=== PATIENT | male | born 1965 | race Caucasian/White ===

== ENCOUNTER 2018-03-06 13:09 | Emergency (ER) | payer SELFPAY ==
[2018-03-06] MEDS ORDERED: NS 0.9% 1000 ML* 1,000 ML IV ONE (14:44)
[2018-03-06] MEDS ORDERED: Thiamine IV* 100 MG, Folic Acid IV* 1 MG, Multiple Vitamin IV ADULT* 10 ML in NS 0.9% 1... IV ONE (14:48)
[2018-03-06 15:21] LABS: Hematocrit 36 % (42-52); Hemoglobin 12.4 g/dl (14.0-18.0); Mean Corpuscular HGB Conc 35 g/dl (31-36); Mean Corpuscular Hemoglobin 34 pg (27-31); Mean Corpuscular Volume 96 fL (80-94); Mean Platelet Volume 6.7 fL (7.4-10.4); Platelet Count 175 10^3/ul (150-450); Red Cell Distribution Width 14 % (10.5-15); White Blood Count 8.6 10^3/ul (3.5-10.8)
[2018-03-06 15:28] LABS: INR 0.78 (0.77-1.02)
[2018-03-06 15:35] LABS: ALT 35 U/L (7-52); AST 50 U/L (13-39); Albumin 3.4 g/dL (3.2-5.2); Albumin/Globulin Ratio 1.5 (1-3); Alkaline Phosphatase 139 U/L (34-104); Anion Gap 7 mmol/L (2-11); BUN/Creatinine Ratio 9.7 (8-20); Blood Urea Nitrogen 9 mg/dL (6-24); C Reactive Protein < 1.00 mg/L (<8.01); CO2 Carbon Dioxide 25 mmol/L (22-32); Calcium 8.1 mg/dL (8.6-10.3); Chloride 98 mmol/L (101-111); EGFR Non-African American 84.4 (>60); Globulin 2.3 g/dL (2-4); Glucose 99 mg/dL (70-100); Potassium 4.5 mmol/L (3.5-5.0); Sodium 130 mmol/L (135-145); Total Protein 5.7 g/dL (6.4-8.9)
[2018-03-06 16:00] LABS: Alcohol 174 mg/dL (<10)
[2018-03-06 16:15] LABS: Lymphocytes % 40 %; Monocytes % 6 %; Neutrophil % 48 %; Variant Lymph % 6 % (0-6)
[2018-03-06 16:17] LABS: ABS Basophils 0.1 10^3/ul (0-0.2); ABS Eosinophils 0.1 10^3/ul (0-0.6); ABS Lymphocytes 3.6 10^3/ul (1.0-4.8); ABS Monocytes 0.7 10^3/ul (0-0.8); ABS Neutrophils 4.2 10^3/ul (1.5-7.7); ABS Nucleated RBC 0 10^3/ul; Nucleated Red Blood Cells % 0.1
[2018-03-06 18:16] LABS: Barbiturates Urine Screen None Detected (None Detect); Benzodiazepine Urine Screen None Detected (None Detect); Urine Cannabinoids Screen None Detected (None Detect)
[2018-03-06 18:19] LABS: Urine Appearance Clear; Urine Bilirubin Negative (Negative); Urine Blood Negative (Negative); Urine Color Straw; Urine Glucose Negative (Negative); Urine Ketones Negative (Negative); Urine Nitrite Negative (Negative); Urine Protein Negative (Negative); Urine Specific Gravity 1.005 (1.010-1.030); Urine Urobilinogen Negative (Negative)
[2018-03-06] MEDS ORDERED: amLODIPine TAB* 5 MG PO ONE (18:23)
--- NOTE | 2018-03-06 18:27 | ED ---
Substance Abuse/Use - HPI Summary HPI Summary: Patient with history of chronic EtOH per family complains of increasing falls, increasing confusion. Per patient, who is alert and oriented to person and place, he complains of headache status post fall yesterday. Patient admits to 6 -8 beers a day, last EtOH this morning. Patient lives alone. denies medical history. Parents state patient had hepatorenal syndrome in [place] in 2013. Patient is positive smoker. Denies recreational drug use - History Of Current Complaint Chief Complaint: EDHeadInjury Stated Complaint: FALL W POSS HEAD INJURY Time Seen by Provider: 03/06/18 14:40 Hx Obtained From: Patient Onset/Duration of Drug/ETOH Abuse: Hours Timing Of Abuse: Daily Aggravating Factor(s): Nothing Alleviating Factor(s): Nothing Associated Signs And Symptoms: Negative - Allergies/Home Medications Allergies/Adverse Reactions: Allergies Allergy/AdvReac Type Severity Reaction Status Date / Time No Known Allergies Allergy Verified 03/06/18 15:52 Home Medications: Home Medications NK [No Home Medications Reported] 03/06/18 [History Confirmed 03/06/18] PMH/Surg Hx/FS Hx/Imm Hx Endocrine/Hematology History: Denies: Hx Anticoagulant Therapy History: Denies: Hx Dialysis Sensory History: Denies: Hx Eye Prosthesis EENT History: Denies: Hx Deafness Neurological History: Denies: Hx Developmental Delay Psychiatric History: Denies: Hx Autism Infectious Disease History: No Infectious Disease History: Denies: Traveled Outside the [place] in Last 30 Days - Family History Known Family History: Positive: Unknown - Social History Alcohol Use: Daily Alcohol Amount: 6-8 pack of beer a day Substance Use Type: Reports: None Smoking Status (MU): Heavy Every Day Tobacco Smoker Review of Systems Constitutional: Negative Eyes: Negative ENT: Negative Cardiovascular: Negative Respiratory: Negative Gastrointestinal: Negative Genitourinary: Negative Musculoskeletal: Negative Skin: Negative Positive: Headache Psychological: Normal All Other Systems Reviewed And Are Negative: Yes Physical Exam - Summary Physical Exam Summary: Patient alert and oriented 4. Neuro exam normal. No evidence of trauma, ecchymosis, erythema, swelling or deformity noted to face, head, neck, back, chest wall, abdomen, bilateral lower extremities. No oral trauma noted. Appears to be old subcutaneous bruising on bilateral forearms.. Patient moves all 4 extremities without any indication of pain. No pain with palpation of abdomen, chest wall, back. No diaphoresis, N/V, tremors noted. Patient calm and cooperative. Triage Information Reviewed: Yes Vital Signs On Initial Exam: Initial Vitals Temp Pulse Resp BP Pulse Ox 98.3 F 62 20 113/0 99 03/06/18 13:40 03/06/18 13:40 03/06/18 13:40 03/06/18 13:40 03/06/18 13:40 Vital Signs Reviewed: Yes Appearance: Positive: Well-Appearing Skin: Positive: Warm Head/Face: Positive: Normal Head/Face Inspection Eyes: Positive: Normal ENT: Positive: Normal ENT inspection Dental: Negative: Dental Fracture @, Bleeding Neck: Positive: Supple Respiratory/Lung Sounds: Positive: Clear to Auscultation Cardiovascular: Positive: Normal Abdomen Description: Positive: Nontender Musculoskeletal: Positive: Normal Neurological: Positive: Normal Psychiatric: Positive: Normal AVPU Assessment: Alert - Marked Tree Coma Scale Best Eye Response: 4 - Spontaneous Best Motor Response: 6 - Obeys Commands Best Verbal Response: 5 - Oriented Coma Scale Total: 15 Diagnostics - Vital Signs Vital Signs Temp Pulse Resp BP Pulse Ox 03/06/18 18:00 68 17 97 03/06/18 17:54 77 16 228/100 97 03/06/18 17:44 71 18 213/104 97 03/06/18 17:23 80 22 218/98 98 03/06/18 17:00 69 17 97 03/06/18 16:54 70 17 202/96 97 03/06/18 16:23 68 16 227/103 99 03/06/18 16:00 71 21 97 03/06/18 15:53 89 21 196/112 97 03/06/18 15:42 98 227/116 03/06/18 15:38 101 17 227/116 98 03/06/18 15:37 77 20 218/87 98 03/06/18 15:34 77 18 214/105 97 03/06/18 15:23 75 25 218/105 98 03/06/18 15:07 80 16 100 03/06/18 14:23 73 19 192/99 96 03/06/18 14:00 77 17 97 03/06/18 13:53 80 19 224/114 99 03/06/18 13:40 98.3 F 62 20 113/0 99 - Laboratory Lab Results: Lab Results 03/06/18 03/06/18 03/06/18 Range/Units 15:05 15:05 15:05 WBC 8.6 (3.5-10.8) 10^3/ul RBC 3.70 L (4.00-5.40) 10^6/ul Hgb 12.4 L (14.0-18.0) g/dl Hct 36 L (42-52) % MCV 96 H (80-94) fL MCH 34 H (27-31) pg MCHC 35 (31-36) g/dl RDW 14 (10.5-15) % Plt Count 175 (150-450) 10^3/ul MPV 6.7 L (7.4-10.4) fL Neut % (Auto) Not Reportable Lymph % (Auto) Not Reportable Mckinley % (Auto) Not Reportable Eos % (Auto) Not Reportable Baso % (Auto) Not Reportable Absolute Neuts (auto) 4.2 (1.5-7.7) 10^3/ul Absolute Lymphs (auto) 3.6 (1.0-4.8) 10^3/ul Absolute Monos (auto) 0.7 (0-0.8) 10^3/ul Absolute Eos (auto) 0.1 (0-0.6) 10^3/ul Absolute Basos (auto) 0.1 (0-0.2) 10^3/ul Absolute Nucleated RBC 0 10^3/ul Neutrophils % 48 % Lymphocytes % 40 % Reactive Lymphs % 6 (0-6) % Monocytes % 6 % Nucleated RBC % 0.1 Normal RBC Morphology Normal (Normal) INR (Anticoag Therapy) (0.77-1.02) Sodium 130 L (135-145) mmol/L Potassium 4.5 (3.5-5.0) mmol/L Chloride 98 L (101-111) mmol/L Carbon Dioxide 25 (22-32) mmol/L Anion Gap 7 (2-11) mmol/L BUN 9 (6-24) mg/dL Creatinine 0.93 (0.67-1.17) mg/dL Est GFR ( Amer) 102.1 (>60) Est GFR (Non-Af Amer) 84.4 (>60) BUN/Creatinine Ratio 9.7 (8-20) Glucose 99 (70-100) mg/dL Lactic Acid 1.6 (0.5-2.0) mmol/L Calcium 8.1 L (8.6-10.3) mg/dL Total Bilirubin 0.20 (0.2-1.0) mg/dL AST 50 H (13-39) U/L ALT 35 (7-52) U/L Alkaline Phosphatase 139 H (34-104) U/L Ammonia (16-53) mcmol/L C-Reactive Protein < 1.00 (<8.01) mg/L Total Protein 5.7 L (6.4-8.9) g/dL Albumin 3.4 (3.2-5.2) g/dL Globulin 2.3 (2-4) g/dL Albumin/Globulin Ratio 1.5 (1-3) Urine Color Urine Appearance Urine pH (5-9) Ur Specific [place] (1.010-1.030) Urine Protein (Negative) Urine Ketones (Negative) Urine Blood (Negative) Urine Nitrate (Negative) Urine Bilirubin (Negative) Urine Urobilinogen (Negative) Ur Leukocyte Esterase (Negative) Urine Glucose (Negative) Urine Opiates Screen (None Detect) Ur Barbiturates Screen (None Detect) Ur Phencyclidine Scrn (None Detect) Ur Amphetamines Screen (None Detect) U Benzodiazepines Scrn (None Detect) Urine Cocaine Screen (None Detect) U Cannabinoids Screen (None Detect) Serum Alcohol 174 H (<10) mg/dL 03/06/18 03/06/18 03/06/18 Range/Units 15:05 15:05 17:45 WBC (3.5-10.8) 10^3/ul RBC (4.00-5.40) 10^6/ul Hgb (14.0-18.0) g/dl Hct (42-52) % MCV (80-94) fL MCH (27-31) pg MCHC (31-36) g/dl RDW (10.5-15) % Plt Count (150-450) 10^3/ul MPV (7.4-10.4) fL Neut % (Auto) Lymph % (Auto) Mckinley % (Auto) Eos % (Auto) Baso % (Auto) Absolute Neuts (auto) (1.5-7.7) 10^3/ul Absolute Lymphs (auto) (1.0-4.8) 10^3/ul Absolute Monos (auto) (0-0.8) 10^3/ul Absolute Eos (auto) (0-0.6) 10^3/ul Absolute Basos (auto) (0-0.2) 10^3/ul Absolute Nucleated RBC 10^3/ul Neutrophils % % Lymphocytes % % Reactive Lymphs % (0-6) % Monocytes % % Nucleated RBC % Normal RBC Morphology (Normal) INR (Anticoag Therapy) 0.78 (0.77-1.02) Sodium (135-145) mmol/L Potassium (3.5-5.0) mmol/L Chloride (101-111) mmol/L Carbon Dioxide (22-32) mmol/L Anion Gap (2-11) mmol/L BUN (6-24) mg/dL Creatinine (0.67-1.17) mg/dL Est GFR ( Amer) (>60) Est GFR (Non-Af Amer) (>60) BUN/Creatinine Ratio (8-20) Glucose (70-100) mg/dL Lactic Acid (0.5-2.0) mmol/L Calcium (8.6-10.3) mg/dL Total Bilirubin (0.2-1.0) mg/dL AST (13-39) U/L ALT (7-52) U/L Alkaline Phosphatase (34-104) U/L Ammonia 40 (16-53) mcmol/L C-Reactive Protein (<8.01) mg/L Total Protein (6.4-8.9) g/dL Albumin (3.2-5.2) g/dL Globulin (2-4) g/dL Albumin/Globulin Ratio (1-3) Urine Color Straw Urine Appearance Clear Urine pH 6.0 (5-9) Ur Specific [place] 1.005 L (1.010-1.030) Urine Protein Negative (Negative) Urine Ketones Negative (Negative) Urine Blood Negative (Negative) Urine Nitrate Negative (Negative) Urine Bilirubin Negative (Negative) Urine Urobilinogen Negative (Negative) Ur Leukocyte Esterase Negative (Negative) Urine Glucose Negative (Negative) Urine Opiates Screen (None Detect) Ur Barbiturates Screen (None Detect) Ur Phencyclidine Scrn (None Detect) Ur Amphetamines Screen (None Detect) U Benzodiazepines Scrn (None Detect) Urine Cocaine Screen (None Detect) U Cannabinoids Screen (None Detect) Serum Alcohol (<10) mg/dL 03/06/18 Range/Units 17:45 WBC (3.5-10.8) 10^3/ul RBC (4.00-5.40) 10^6/ul Hgb (14.0-18.0) g/dl Hct (42-52) % MCV (80-94) fL MCH (27-31) pg MCHC (31-36) g/dl RDW (10.5-15) % Plt Count (150-450) 10^3/ul MPV (7.4-10.4) fL Neut % (Auto) Lymph % (Auto) Mckinley % (Auto) Eos % (Auto) Baso % (Auto) Absolute Neuts (auto) (1.5-7.7) 10^3/ul Absolute Lymphs (auto) (1.0-4.8) 10^3/ul Absolute Monos (auto) (0-0.8) 10^3/ul Absolute Eos (auto) (0-0.6) 10^3/ul Absolute Basos (auto) (0-0.2) 10^3/ul Absolute Nucleated RBC 10^3/ul Neutrophils % % Lymphocytes % % Reactive Lymphs % (0-6) % Monocytes % % Nucleated RBC % Normal RBC Morphology (Normal) INR (Anticoag Therapy) (0.77-1.02) Sodium (135-145) mmol/L Potassium (3.5-5.0) mmol/L Chloride (101-111) mmol/L Carbon Dioxide (22-32) mmol/L Anion Gap (2-11) mmol/L BUN (6-24) mg/dL Creatinine (0.67-1.17) mg/dL Est GFR ( Amer) (>60) Est GFR (Non-Af Amer) (>60) BUN/Creatinine Ratio (8-20) Glucose (70-100) mg/dL Lactic Acid (0.5-2.0) mmol/L Calcium (8.6-10.3) mg/dL Total Bilirubin (0.2-1.0) mg/dL AST (13-39) U/L ALT (7-52) U/L Alkaline Phosphatase (34-104) U/L Ammonia (16-53) mcmol/L C-Reactive Protein (<8.01) mg/L Total Protein (6.4-8.9) g/dL Albumin (3.2-5.2) g/dL Globulin (2-4) g/dL Albumin/Globulin Ratio (1-3) Urine Color Urine Appearance Urine pH (5-9) Ur Specific [place] (1.010-1.030) Urine Protein (Negative) Urine Ketones (Negative) Urine Blood (Negative) Urine Nitrate (Negative) Urine Bilirubin (Negative) Urine Urobilinogen (Negative) Ur Leukocyte Esterase (Negative) Urine Glucose (Negative) Urine Opiates Screen None detected (None Detect) Ur Barbiturates Screen None detected (None Detect) Ur Phencyclidine Scrn None detected (None Detect) Ur Amphetamines Screen None detected (None Detect) U Benzodiazepines Scrn None detected (None Detect) Urine Cocaine Screen None detected (None Detect) U Cannabinoids Screen None detected (None Detect) Serum Alcohol (<10) mg/dL Result Diagrams: 03/06/18 15:05 03/06/18 15:05 Lab Statement: Any lab studies that have been ordered have been reviewed, and results considered in the medical decision making process. Course/Dx - Course Course Of Treatment: Patient with history of chronic EtOH per family complains of increasing falls, increasing confusion. Per patient, who is alert and oriented to person and place, he complains of headache status post fall yesterday. Patient admits to 6-8 beers a day, last EtOH this morning. Patient lives alone. denies medical history. Parents state patient had hepatorenal syndrome in [place] in 2013. Patient is positive smoker. Denies recreational drug use. Physical exam:Patient alert and oriented 4. Neuro exam normal. No evidence of trauma, ecchymosis, erythema, swelling or deformity noted to face, head, neck, back, chest wall, abdomen, bilateral lower extremities. No oral trauma noted. Appears to be old subcutaneous bruising on bilateral forearms.. Patient moves all 4 extremities without any indication of pain. No pain with palpation of abdomen, chest wall, back. No diaphoresis, N/V, tremors noted. Patient calm and cooperative. Blood pressure elevated 200's SBP. Vital signs otherwise unremarkable. Labs unremarkable. EtOH 174. CT brain and C-spine unremarkable. Patient given banana bag. Discussed patient with Dr. Sequeira who suggested patient be given Norvasc 5 mg for elevated blood pressure.. Pt advised to contact care connections for evaluation of hypertension, and alcohol abuse. No diaphoresis, active N/V, agitation or tremors noted on exam prior to discharge. - Diagnoses Provider Diagnoses: ETOH abuse, Fall, Elevated blood pressure reading Discharge - Sign-Out/Discharge Documenting (check all that apply): Patient Departure - Discharge Plan Condition: Stable Disposition: HOME Patient Education Materials: Abuse of Alcohol (ED), Fall Prevention (ED) Referrals: No Primary Care Phys,NOPCP [Primary Care Provider] - [facility] [Outside] Additional Instructions: Follow-up with [facility] for further management of alcohol abuse, general health and alcohol abuse. Return to the ED for any new or worsening symptoms. - Billing Disposition and Condition Condition: STABLE Disposition: Home
[2018-03-06 19:01] VITALS: BP 233/105
== END 2018-03-06 19:00 | disposition home or self-care (01) ==
LOC: ED 13:09
DX: F10.129 Alcohol abuse with intoxication, unspecified (principal); Z91.81 History of falling; R51 Headache; F17.210 Nicotine dependence, cigarettes, uncomplicated; Y90.6 Blood alcohol level of 120-199 mg/100 ml; R03.0 Elevated blood-pressure reading, without diagnosis of hypertension
CPT/HCPCS: 36415; 70450; 71045; 72125; 80053; 80307; 80320; 81003; 82140; 83605; 85025; 85060; 85610; 86140; 93005; 96365; 96366; 99283; A9270-GY; G0480; J3411

== ENCOUNTER 2018-05-14 10:36 | Emergency (ER) | payer MEDICARE ==
[2018-05-14 12:02] LABS: ABS Basophils 0.1 10^3/ul (0-0.2); ABS Eosinophils 0 10^3/ul (0-0.6); ABS Lymphocytes 2.9 10^3/ul (1.0-4.8); ABS Monocytes 0.5 10^3/ul (0-0.8); ABS Neutrophils 3.5 10^3/ul (1.5-7.7); ABS Nucleated RBC 0 10^3/ul; Eosinophil % 0.7 %; Hematocrit 36 % (42-52); Hemoglobin 12.8 g/dl (14.0-18.0); Lymphocyte % 42.1 %; Mean Corpuscular HGB Conc 35 g/dl (31-36); Mean Corpuscular Hemoglobin 34 pg (27-31); Mean Corpuscular Volume 96 fL (80-94); Mean Platelet Volume 6.9 fL (7.4-10.4); Nucleated Red Blood Cells % 0.1; Platelet Count 167 10^3/ul (150-450); Red Cell Distribution Width 13 % (10.5-15)
[2018-05-14 12:24] LABS: Albumin 3.7 g/dL (3.2-5.2); Albumin/Globulin Ratio 1.4 (1-3); BUN/Creatinine Ratio 10.5 (8-20); Calcium 8.6 mg/dL (8.6-10.3); EGFR African American 111.7 (>60); EGFR Non-African American 92.3 (>60); Globulin 2.6 g/dL (2-4); Magnesium 1.9 mg/dL (1.9-2.7); Potassium 3.7 mmol/L (3.5-5.0); Total Bilirubin 0.6 mg/dL (0.2-1.0); Total Protein 6.3 g/dL (6.4-8.9)
[2018-05-14 12:25] LABS: Troponin I 0.01 ng/mL (<0.04)
[2018-05-14 12:27] LABS: CKMB ng/mL 1.8 ng/mL (0.6-6.3)
[2018-05-14 12:36] VITALS: BP 204/96
--- NOTE | 2018-05-14 15:24 | ED ---
HPI Chest Pain - HPI Summary HPI Summary: Patient presents to the ED for the fourth time in 4 days with a variety of complaints. He endorses a complaint of weakness and midsternal chest pain which has been present times several weeks which is been worsening over the past week. He was discharged from the ED 1 week ago and has continued to come back nearly every day since that time. Patient states he drinks heavily daily and endorses his last drink was today. He denies any SOB. He denies any other complaints or symptoms. On arrival he is requesting to go outside and smoke. He left AMA last evening after being seen for chest pain. - History of Current Complaint Chief Complaint: EDChestPainROMI Time Seen by Provider: 05/14/18 11:39 Hx Obtained From: Patient Onset/Duration: Started Hours Ago Timing: Constant Initial Severity: Moderate Current Severity: Moderate Pain Intensity: 8 Pain Scale Used: 0-10 Numeric Chest Pain Location: Mid Sternal Chest Pain Radiates: No Character: Dull/Aching Aggravating Factor(s): Other: - positioning Alleviating Factor(s): Other: - alcohol Associated Signs and Symptoms: Positive: Chest Pain - Allergy/Home Medications Allergies/Adverse Reactions: Allergies Allergy/AdvReac Type Severity Reaction Status Date / Time No Known Allergies Allergy Verified 05/14/18 10:45 PMH/Surg Hx/FS Hx/Imm Hx Previously Healthy: Yes Endocrine/Hematology History: Denies: Hx Anticoagulant Therapy Cardiovascular History: Reports: Hx Hypertension - HIGH NOW, TYPICALLY NORMAL. 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, Hx Hiatal Hernia History: Denies: Hx Dialysis Sensory History: Denies: Hx Contacts or Glasses, Hx Eye Prosthesis, Hx Deafness, Hx Hearing Aid Opthamlomology History: Denies: Hx Contacts or Glasses, Hx Eye Prosthesis Neurological History: Denies: Hx Developmental Delay Psychiatric History: Reports: Hx Anxiety, Hx Depression, Hx Substance Abuse Denies: Hx Attention Deficit Hyperactivity Disorder, Hx Autism, Hx Eating Disorder, Hx Panic Disorder, Hx Post Traumatic Stress Disorder, Hx Inpatient Treatment, Hx Community Mental Health Tx, Hx Schizophrenia, Hx Bipolar Disorder , Hx Suicide Attempt, Hx of Violent Episodes Against Others, Other Psychiatric Issues/Disorders Infectious Disease History: No Infectious Disease History: Denies: Traveled Outside the [place] in Last 30 Days - Family History Known Family History: Positive: Unknown, Other - HLD Negative: Cardiac Disease, Hypertension, Diabetes - Social History Occupation: Unemployed Lives: Alone Alcohol Use: Daily Alcohol Amount: 12+ pack beers per day Hx Substance Use: No Substance Use Type: Reports: None Hx Tobacco Use: Yes Smoking Status (MU): Heavy Every Day Tobacco Smoker Type: Cigarettes Amount Used/How Often: 2 ppd Review of Systems Constitutional: Negative Negative: Fever, Chills, Fatigue, Skin Diaphoresis Positive: Chest Pain. Negative: Palpitations Negative: Shortness Of Breath, Cough Genitourinary: Negative Positive: no symptoms reported, see HPI Negative: Arthralgia, Myalgia Skin: Negative All Other Systems Reviewed And Are Negative: Yes Physical Exam Triage Information Reviewed: Yes Vital Signs On Initial Exam: Initial Vitals Temp Pulse Resp BP Pulse Ox 98.0 F 96 18 212/110 99 05/14/18 10:42 05/14/18 10:42 05/14/18 10:42 05/14/18 10:42 05/14/18 10:42 Vital Signs Reviewed: Yes Appearance: Positive: Pain Distress Skin: Positive: Skin Color Reflects Adequate Perfusion Head/Face: Positive: Normal Head/Face Inspection Eyes: Positive: EOMI, Conjunctiva Clear Neck: Positive: No Lymphadenopathy Respiratory/Lung Sounds: Positive: Clear to Auscultation, Breath Sounds Present Cardiovascular: Positive: Normal Neurological: Positive: Slurred Speech Psychiatric: Positive: Affect/Mood Appropriate AVPU Assessment: Alert Diagnostics - Vital Signs Vital Signs Temp Pulse Resp BP Pulse Ox 05/14/18 12:16 79 16 204/96 98 05/14/18 12:00 76 15 191/100 96 05/14/18 11:56 81 14 193/104 97 05/14/18 11:53 81 16 201/83 97 05/14/18 11:51 25 05/14/18 10:42 98.0 F 96 18 212/110 99 - Laboratory Lab Results: Lab Results 05/14/18 05/14/18 05/14/18 Range/Units 11:51 11:51 11:51 WBC 7.0 (3.5-10.8) 10^3/ul RBC 3.80 L (4.00-5.40) 10^6/ul Hgb 12.8 L (14.0-18.0) g/dl Hct 36 L (42-52) % MCV 96 H (80-94) fL MCH 34 H (27-31) pg MCHC 35 (31-36) g/dl RDW 13 (10.5-15) % Plt Count 167 (150-450) 10^3/ul MPV 6.9 L (7.4-10.4) fL Neut % (Auto) 49.4 % Lymph % (Auto) 42.1 % [place] % (Auto) 6.7 % Eos % (Auto) 0.7 % Baso % (Auto) 1.1 % Absolute Neuts (auto) 3.5 (1.5-7.7) 10^3/ul Absolute Lymphs (auto) 2.9 (1.0-4.8) 10^3/ul Absolute Monos (auto) 0.5 (0-0.8) 10^3/ul Absolute Eos (auto) 0 (0-0.6) 10^3/ul Absolute Basos (auto) 0.1 (0-0.2) 10^3/ul Absolute Nucleated RBC 0 10^3/ul Nucleated RBC % 0.1 Sodium 131 L (135-145) mmol/L Potassium 3.7 (3.5-5.0) mmol/L Chloride 97 L (101-111) mmol/L Carbon Dioxide 27 (22-32) mmol/L Anion Gap 7 (2-11) mmol/L BUN 9 (6-24) mg/dL Creatinine 0.86 (0.67-1.17) mg/dL Est GFR ( Amer) 111.7 (>60) Est GFR (Non-Af Amer) 92.3 (>60) BUN/Creatinine Ratio 10.5 (8-20) Glucose 120 H (70-100) mg/dL Lactic Acid 2.2 H* (0.5-2.0) mmol/L Calcium 8.6 (8.6-10.3) mg/dL Magnesium 1.9 (1.9-2.7) mg/dL Total Bilirubin 0.60 (0.2-1.0) mg/dL AST 80 H (13-39) U/L ALT 82 H (7-52) U/L Alkaline Phosphatase 241 H (34-104) U/L CK-MB (CK-2) 1.8 (0.6-6.3) ng/mL Troponin I 0.01 (<0.04) ng/mL B-Natriuretic Peptide (<=100) pg/mL Total Protein 6.3 L (6.4-8.9) g/dL Albumin 3.7 (3.2-5.2) g/dL Globulin 2.6 (2-4) g/dL Albumin/Globulin Ratio 1.4 (1-3) Serum Alcohol 43 H (<10) mg/dL 05/14/18 Range/Units 11:51 WBC (3.5-10.8) 10^3/ul RBC (4.00-5.40) 10^6/ul Hgb (14.0-18.0) g/dl Hct (42-52) % MCV (80-94) fL MCH (27-31) pg MCHC (31-36) g/dl RDW (10.5-15) % Plt Count (150-450) 10^3/ul MPV (7.4-10.4) fL Neut % (Auto) % Lymph % (Auto) % [place] % (Auto) % Eos % (Auto) % Baso % (Auto) % Absolute Neuts (auto) (1.5-7.7) 10^3/ul Absolute Lymphs (auto) (1.0-4.8) 10^3/ul Absolute Monos (auto) (0-0.8) 10^3/ul Absolute Eos (auto) (0-0.6) 10^3/ul Absolute Basos (auto) (0-0.2) 10^3/ul Absolute Nucleated RBC 10^3/ul Nucleated RBC % Sodium (135-145) mmol/L Potassium (3.5-5.0) mmol/L Chloride (101-111) mmol/L Carbon Dioxide (22-32) mmol/L Anion Gap (2-11) mmol/L BUN (6-24) mg/dL Creatinine (0.67-1.17) mg/dL Est GFR ( Amer) (>60) Est GFR (Non-Af Amer) (>60) BUN/Creatinine Ratio (8-20) Glucose (70-100) mg/dL Lactic Acid (0.5-2.0) mmol/L Calcium (8.6-10.3) mg/dL Magnesium (1.9-2.7) mg/dL Total Bilirubin (0.2-1.0) mg/dL AST (13-39) U/L ALT (7-52) U/L Alkaline Phosphatase (34-104) U/L CK-MB (CK-2) (0.6-6.3) ng/mL Troponin I (<0.04) ng/mL B-Natriuretic Peptide 334 H (<=100) pg/mL Total Protein (6.4-8.9) g/dL Albumin (3.2-5.2) g/dL Globulin (2-4) g/dL Albumin/Globulin Ratio (1-3) Serum Alcohol (<10) mg/dL Result Diagrams: 05/14/18 11:51 05/14/18 11:51 Lab Statement: Any lab studies that have been ordered have been reviewed, and results considered in the medical decision making process. Chest Pain Course/Dx - Course Course Of Treatment: During the course treatment, labs were obtained for chest pain. EKG obtained which shows sinus rhythm with no evidence of STEMI. Troponin 0.02. Elevated BNP and alcohol is 43. Patient begins to get aggravated after labs were drawn and states he needs discussed smoke and drink alcohol. I have offered an AMA form as at this time I do not feel he is safe to be discharged home in this condition. Patient was examined. - Chest Pain Differential Diagnosis/HQI/PQRI: Acute IA, ACS, Chest Wall, Other: - alcoholism - Diagnoses Provider Diagnoses: Alcohol intoxication, Chest pain Discharge - Sign-Out/Discharge Documenting (check all that apply): Patient Departure Patient Received Moderate/Deep Sedation with Procedure: No - Discharge Plan Condition: Fair Disposition: AGAINST MEDICAL ADVICE Referrals: No Primary Care Phys,NOPCP [Primary Care Provider] - - Billing Disposition and Condition Condition: FAIR Disposition: Against Medical Advice
== END 2018-05-14 12:42 | disposition left against medical advice (07) ==
LOC: ED 10:36
DX: F10.129 Alcohol abuse with intoxication, unspecified (principal); R07.2 Precordial pain; F17.210 Nicotine dependence, cigarettes, uncomplicated
CPT/HCPCS: 36415; 80053; 80320; 82553; 83605; 83735; 83880; 84484; 85025; 93005; 99283; G0480

== ENCOUNTER 2018-05-16 13:17 | Emergency (ER) | payer MEDICARE ==
[2018-05-16 13:43] VITALS: BP 183/96
--- NOTE | 2018-05-16 15:27 | ED ---
HPI Chest Pain - HPI Summary HPI Summary: LEVEL 5 CAVEAT: HPI LIMITED DUE TO PT LEAVING AMA. A 53 y/o M presents to ED with c/o CP onset yesterday and is still present. Pt attempted to elope, ED provider found him outside smoking a cigarette. Patient does not want to return to ED. He wants to leave AMA. ED provider discussed the risks of leaving AMA with pt. Pt states understanding. - History of Current Complaint Chief Complaint: EDChestPainROMI Time Seen by Provider: 05/16/18 13:56 Hx Obtained From: Patient Onset/Duration: Still Present Pain Intensity: 0 Pain Scale Used: 0-10 Numeric - Allergy/Home Medications Allergies/Adverse Reactions: Allergies Allergy/AdvReac Type Severity Reaction Status Date / Time No Known Allergies Allergy Verified 05/14/18 10:45 PMH/Surg Hx/FS Hx/Imm Hx Previously Healthy: No Endocrine/Hematology History: Denies: Hx Anticoagulant Therapy Cardiovascular History: Reports: Hx Hypertension - HIGH NOW, TYPICALLY NORMAL. 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, Hx Hiatal Hernia History: Denies: Hx Dialysis Sensory History: Denies: Hx Contacts or Glasses, Hx Eye Prosthesis Opthamlomology History: Denies: Hx Contacts or Glasses, Hx Eye Prosthesis Neurological History: Denies: Hx Developmental Delay Psychiatric History: Reports: Hx Anxiety, Hx Depression, Hx Substance Abuse Denies: Hx Attention Deficit Hyperactivity Disorder, Hx Autism, Hx Eating Disorder, Hx Panic Disorder, Hx Post Traumatic Stress Disorder, Hx Inpatient Treatment, Hx Community Mental Health Tx, Hx Schizophrenia, Hx Bipolar Disorder , Hx Suicide Attempt, Hx of Violent Episodes Against Others, Other Psychiatric Issues/Disorders Infectious Disease History: No Infectious Disease History: Denies: Traveled Outside the [place] in Last 30 Days - Family History Known Family History: Positive: Other - HLD Negative: Cardiac Disease, Hypertension, Diabetes - Social History Occupation: Disabled Lives: Alone Alcohol Use: Daily Alcohol Amount: 12+ pack beers per day Hx Substance Use: No Substance Use Type: Reports: None Hx Tobacco Use: Yes Smoking Status (MU): Heavy Every Day Tobacco Smoker Type: Cigarettes Amount Used/How Often: 2 ppd Review of Systems - ROS Summary Review of Systems Summary: LEVEL 5 CAVEAT: ROS LIMITED DUE TO PATIENT LEAVING AMA. Positive: Chest Pain All Other Systems Reviewed And Are Negative: No Physical Exam - Summary Physical Exam Summary: LEVEL 5 CAVEAT: PE LIMITED DUE TO PATIENT LEAVING AMA. Pt left AMA prior to PE. Triage Information Reviewed: Yes Vital Signs On Initial Exam: Initial Vitals Temp Pulse Resp BP Pulse Ox 99.3 F 79 18 183/96 95 05/16/18 13:30 05/16/18 13:30 05/16/18 13:30 05/16/18 13:30 05/16/18 13:30 Vital Signs Reviewed: Yes Diagnostics - Vital Signs Vital Signs Temp Pulse Resp BP Pulse Ox 05/16/18 13:30 99.3 F 79 18 183/96 95 - Laboratory Lab Statement: Any lab studies that have been ordered have been reviewed, and results considered in the medical decision making process. - Radiology CXR Radiology Interpretation Completed By: Radiologist Summary of Radiographic Findings: IMPRESSION: No evidence of acute disease. ED provider has reviewed this report. - EKG 1405 Cardiac Rate: NL - 79 bpm EKG Rhythm: Sinus Rhythm Summary of EKG Findings: No STEMI. Chest Pain Course/Dx - Course Course Of Treatment: Pt is a 53 y/o M presents to ED with c/o CP onset yesterday and is still present. Pt attempted to elope, I found him outside smoking a cigarette. Patient does not want to return to ED. He wants to leave AMA. I discussed the risks of leaving AMA with pt. Pt states understanding. CXR shows NAD and EKG is NSR, no STEMI. - Diagnoses Provider Diagnoses: Chest pain, Left against medical advice Discharge - Sign-Out/Discharge Documenting (check all that apply): Patient Departure - AMA Patient Received Moderate/Deep Sedation with Procedure: No - Discharge Plan Condition: Good Disposition: TRANSFER TO [facility] ([facility]) - Billing Disposition and Condition Condition: GOOD Disposition: Transfer to OB ([facility]) - Attestation Statements Document Initiated by Scribe: Yes Documenting Scribe: Reno Peng Provider For Whom Scribe is Documenting (Include Credential): Dr. Phil Joseph Scribe Attestation: IReno, scribed for Dr. Phil Joseph on 05/17/18 at 1419. Scribe Documentation Reviewed: Yes Provider Attestation: The documentation as recorded by the scribe, Reno Peng accurately reflects the service I personally performed and the decisions made by me, Dr. Phil Joseph Status of Scribe Document: Viewed
== END 2018-05-16 14:36 | disposition home or self-care (01) ==
LOC: ED 13:17
DX: R07.89 Other chest pain (principal); I10 Essential (primary) hypertension; F41.9 Anxiety disorder, unspecified; F32.9 Major depressive disorder, single episode, unspecified; F17.210 Nicotine dependence, cigarettes, uncomplicated
CPT/HCPCS: 71045; 93005; 99281

== ENCOUNTER 2018-05-27 09:24 | Observation (INO) | payer MEDICARE ==
--- NOTE | 2018-05-27 10:03 | ED ---
Dizziness - HPI Summary HPI Summary: This pt is a 53 y/o male presenting to [facility] c/o worsening dizziness since last night. Pt describes dizziness as room spinning. He notes he is unsteady on his feet secondary to dizziness. Additional symptoms include headache, chest pressure, nausea. Denies vomiting. Pt reports he was unable to sleep last night secondary to his symptoms. Pt noted to be hypertensive in the ED. His last alcohol drink was yesterday around 1900. Pt denies any falls today. - History Of Current Complaint Chief Complaint: EDHeadache Stated Complaint: HEADACHE/DIZZINESS PER PT Time Seen by Provider: 05/27/18 09:53 Hx Obtained From: Patient Onset/Duration: Still Present Timing: Hours Severity Currently: Moderate Character: Room Spinning, Dizzy Aggravating Factor(s): Exertion Alleviating Factor(s): Nothing Associated Signs And Symptoms: Positive: Nausea, Chest Pain, Other: - POS: headache. Negative: Vomiting, Fever, Chills - Allergies/Home Medications Allergies/Adverse Reactions: Allergies Allergy/AdvReac Type Severity Reaction Status Date / Time No Known Allergies Allergy Verified 05/27/18 09:37 PMH/Surg Hx/FS Hx/Imm Hx Endocrine/Hematology History: Denies: Hx Anticoagulant Therapy Cardiovascular History: Reports: Hx Hypertension - HIGH NOW, TYPICALLY NORMAL. 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, Hx Hiatal Hernia History: Denies: Hx Dialysis Sensory History: Denies: Hx Contacts or Glasses, Hx Eye Prosthesis Opthamlomology History: Denies: Hx Contacts or Glasses, Hx Eye Prosthesis Neurological History: Denies: Hx Developmental Delay Psychiatric History: Reports: Hx Anxiety, Hx Depression, Hx Substance Abuse Denies: Hx Attention Deficit Hyperactivity Disorder, Hx Autism, Hx Eating Disorder, Hx Panic Disorder, Hx Post Traumatic Stress Disorder, Hx Inpatient Treatment, Hx Community Mental Health Tx, Hx Schizophrenia, Hx Bipolar Disorder , Hx Suicide Attempt, Hx of Violent Episodes Against Others, Other Psychiatric Issues/Disorders Infectious Disease History: No Infectious Disease History: Denies: Traveled Outside the [place] in Last 30 Days - Family History Known Family History: Positive: Other - HLD Negative: Cardiac Disease, Hypertension, Diabetes - Social History Alcohol Use: Daily Alcohol Amount: 12+ pack beers per day Hx Substance Use: No Substance Use Type: Reports: None Hx Tobacco Use: Yes Smoking Status (MU): Heavy Every Day Tobacco Smoker Type: Cigarettes Amount Used/How Often: 2 ppd Review of Systems Negative: Fever, Chills Cardiovascular: Other - POS: hypertension Positive: Chest Pain Positive: Nausea. Negative: Vomiting Neurological: Other - POS: dizziness Positive: Headache All Other Systems Reviewed And Are Negative: Yes Physical Exam - Summary Physical Exam Summary: VITAL SIGNS: Reviewed. GENERAL: Patient is a well-developed and nourished male who is lying comfortable in the stretcher. Patient is not in any acute respiratory distress. HEAD AND FACE: No signs of trauma. No ecchymosis, hematomas or skull depressions. No sinus tenderness. EYES: PERRLA, EOMI x 2, No injected conjunctiva, no nystagmus. EARS: Hearing grossly intact. Ear canals and tympanic membranes are within normal limits. MOUTH: Oropharynx within normal limits. NECK: Supple, trachea is midline, no adenopathy, no JVD, no carotid bruit, no c- spine tenderness, neck with full ROM. CHEST: Symmetric, no tenderness at palpation LUNGS: Clear to auscultation bilaterally. No wheezing or crackles. CVS: Regular rate and rhythm, S1 and S2 present, no murmurs or gallops appreciated. ABDOMEN: Soft, non-tender. No signs of distention. No rebound, no guarding, and no masses palpated. Bowel sounds are normal. EXTREMITIES: FROM in all major joints, no edema, no cyanosis or clubbing. NEURO: Alert and oriented x 3. No acute neurological deficits. Speech is normal and follows commands. SKIN: Dry and warm. Multiple hematomas on skin. Triage Information Reviewed: Yes Vital Signs On Initial Exam: Initial Vitals Temp Pulse Resp BP Pulse Ox 97.4 F 92 18 156/105 100 05/27/18 09:25 05/27/18 09:25 05/27/18 09:25 05/27/18 09:25 05/27/18 09:25 Vital Signs Reviewed: Yes Diagnostics - Vital Signs Vital Signs Temp Pulse Resp BP Pulse Ox 05/27/18 09:25 97.4 F 92 18 156/105 100 - Laboratory Result Diagrams: 05/27/18 10:51 05/27/18 16:17 Lab Statement: Any lab studies that have been ordered have been reviewed, and results considered in the medical decision making process. - Radiology Chest XR Radiology Interpretation Completed By: Radiologist Summary of Radiographic Findings: IMPRESSION: No active cardiopulmonary disease is noted. Dr. Tavera has reviewed this report. - EKG 10:12 Cardiac Rate: NL - at 66 bpm EKG Rhythm: Sinus Rhythm EKG Comparison: No Significant Change - similar to 05/16/18 Summary of EKG Findings: No ST elevations. Dizzy Course/Dx - Course Assessment/Plan: Patient is a 53-year-old male who presents to the emergency department with chief complaint of having dizziness, headache, weakness, not feeling well. In the ED the patients blood pressure was found to be high 224/ 108. Blood work without a significant abnormality except for hemoglobin 11.9, hematocrit of 33, sodium 130, chloride is 96, lactic acid is 2.3, calcium is 8.1 , albumin 3.1, increase in LFTs, BNP 190. Chest x-ray impression: No active cardiopulmonary disease. In the ED course the patient was given hydralazine for the hypertensive urgency. Patient continued to have high blood pressure therefore he was given an additional dose of hydralazine. I believe that the patient has a hypertensive encephalopathy versus urgency therefore I will admit the patient to the hospitalist services. I discussed my physical exam, findings and test results with Dr. Jewell from the hospitalist services and he agrees to admit patient to his services. Patient is hemodynamically stable, alert and oriented x 3. - Diagnoses Provider Diagnoses: Hypertensive encephalopathy, Hypertensive urgency - Provider Notifications Discussed Care Of Patient With: Chery Jewell - hospitalist Time Discussed With Above Provider: 11:33 Instructed by Provider To: Admit As Inpatient - Critical Care Time Critical Care Time: 30-74 min Discharge - Sign-Out/Discharge Documenting (check all that apply): Patient Departure - Admit to [facility] Patient Received Moderate/Deep Sedation with Procedure: No - Discharge Plan Condition: Stable Disposition: ADMITTED TO [facility] - Billing Disposition and Condition Condition: STABLE Disposition: Admitted to [facility] - Attestation Statements Document Initiated by Scribe: Yes Documenting Scribe: Lanette Meek Provider For Whom Scribe is Documenting (Include Credential): Albin Tavera MD Scribe Attestation: Lanette Liang, scribed for Albin Tavear MD on 05/27/18 at 1811. Scribe Documentation Reviewed: Yes Provider Attestation: The documentation as recorded by the scribe, Lanette Meek accurately reflects the service I personally performed and the decisions made by me, Albin Tavera MD Status of Scribe Document: Viewed
[2018-05-27] MEDS: hydrALAZINE IV* 20 MG/ML VIAL IV SLOW PU ONE ×2 (10:23→10:35)
[2018-05-27 11:05] LABS: ABS Basophils 0 10^3/ul (0-0.2); ABS Eosinophils 0 10^3/ul (0-0.6); ABS Lymphocytes 2.6 10^3/ul (1.0-4.8); ABS Monocytes 0.4 10^3/ul (0-0.8); ABS Neutrophils 2.2 10^3/ul (1.5-7.7); ABS Nucleated RBC 0 10^3/ul; Eosinophil % 0.7 %; Hematocrit 33 % (36-46); Hemoglobin 11.5 g/dL (14.0-18.0); Lymphocyte % 49.8 %; Mean Corpuscular HGB Conc 35 g/dL (31-36); Mean Corpuscular Hemoglobin 34 pg (27-31); Mean Corpuscular Volume 95 fL (80-94); Mean Platelet Volume 6.7 fL (7.4-10.4); Nucleated Red Blood Cells % 0; Platelet Count 156 10^3/uL (150-450); Red Blood Count 3.42 10^6 /uL (4.18-5.48); Red Cell Distribution Width 13 % (10.5-15); White Blood Count 5.3 10^3/uL (3.5-10.8)
[2018-05-27] MEDS ORDERED: hydrALAZINE IV* 20 MG/ML VIAL IV SLOW PU ONE ×2 (11:10→20:00)
[2018-05-27 11:22] LABS: Activated Partial Thrombo Time 27.3 seconds (26.0-36.3); INR 0.78 (0.77-1.02)
[2018-05-27 11:23] LABS: Albumin 3.1 g/dL (3.2-5.2); Albumin/Globulin Ratio 1.3 (1-3); BUN/Creatinine Ratio 9.4 (8-20); C Reactive Protein 5.05 mg/L (<8.01); Calcium 8.1 mg/dL (8.6-10.3); EGFR African American 113.2 (>60); EGFR Non-African American 93.6 (>60); Globulin 2.3 g/dL (2-4); Magnesium 1.9 mg/dL (1.9-2.7); Potassium 3.6 mmol/L (3.5-5.0); Total Bilirubin 0.6 mg/dL (0.2-1.0); Total Protein 5.4 g/dL (6.4-8.9)
[2018-05-27 11:24] LABS: Troponin I 0.02 ng/mL (<0.04)
[2018-05-27 12:07] LABS: TSH (Thyroid Stimulating Horm) 1.41 mcIU/mL (0.34-5.60)
[2018-05-27] MEDS ORDERED: Nicotine Inhaler* 10 MG AMP INH PRN (15:03)
[2018-05-27] MEDS ORDERED: Al Hydrox/Mg Hydrox/Simet LIQ* 30 ML UDC PO PRN ×2 (15:06→17:29)
[2018-05-27] MEDS ORDERED: Magnesium Hydroxide LIQ* 30 ML UDC PO PRN (15:06)
[2018-05-27] MEDS ORDERED: Ondansetron INJ* 2 MG/ML VIAL IV PRN (15:06)
[2018-05-27] MEDS ORDERED: hydrALAZINE IV* 20 MG/ML VIAL IV SLOW PU PRN ×2 (15:09→19:43)
[2018-05-27] MEDS ORDERED: Thiamine IV* 100 MG, Folic Acid IV* 1 MG, Multiple Vitamin IV ADULT* 10 ML in NS 0.9% 1... IV ONE (15:26)
[2018-05-27] MEDS ORDERED: Thiamine IV* 250 MG in NS 0.9% 100 ML* 100 ML IV SCH (16:00)
[2018-05-27] MEDS ORDERED: LORazepam TAB(*) 1 MG PO SCH (16:00)
[2018-05-27] MEDS ORDERED: Mouth Piece, Nicotine* 1 EACH CARTRIDGE ONE (16:03)
[2018-05-27 16:13] LABS: Folate 5.39 ng/mL (>3.99)
[2018-05-27 16:45] LABS: Troponin I 0.02 ng/mL (<0.04)
[2018-05-27 17:00] LABS: Albumin 3.1 g/dL (3.2-5.2); Albumin/Globulin Ratio 1.3 (1-3); BUN/Creatinine Ratio 8.5 (8-20); Calcium 8.4 mg/dL (8.6-10.3); EGFR African American 69.3 (>60); EGFR Non-African American 57.3 (>60); Globulin 2.4 g/dL (2-4); Potassium 3.5 mmol/L (3.5-5.0); Total Bilirubin 0.5 mg/dL (0.2-1.0); Total Protein 5.5 g/dL (6.4-8.9)
[2018-05-27] MEDS ORDERED: Al Hydrox/Mg Hydrox/Simet LIQ* 30 ML UDC PO ONE (17:27)
[2018-05-27] MEDS ORDERED: Lidocaine 2% VISCOUS* 15 ML UDC SWISH SPIT ONE (17:27)
[2018-05-27] MEDS ORDERED: SCOP/HYOS/ATR/PB(NF) 10 ML UDC PO ONE (17:27)
[2018-05-27] MEDS: Thiamine TAB* 100 MG TAB PO SCH ×2 (17:42→20:35)
--- NOTE | 2018-05-27 18:58 | HP ---
HISTORY AND PHYSICAL: DATE OF ADMISSION: 05/27/18 PRIMARY CARE PROVIDER: None. ATTENDING PHYSICIAN: Dr. Chery Jewell * (dictated by Yecenia Huerta NP.) CHIEF COMPLAINT: 1. Headache. 2. Dizziness. 3. Hypertension. HISTORY OF PRESENT ILLNESS: Mr. Person is a 53-year-old male with a past medical history significant for alcohol abuse and alcohol cirrhosis, who presented to the emergency room today on 05/27/18 due to worsening dizziness last night. In addition, he complains of headache, chest pressure, nausea. While in the emergency department, he was noted to be hypertensive. Therefore, hospitalists were asked to evaluate for admission. During my assessment, the patient reports that his dizziness started approximately Sunday as he woke on 05/22/18, with dizziness and chest pain. He reports that the dizziness has been constant since Sunday with no aggravating or alleviating factors. He reports dizziness worsened last night, therefore he came to the emergency room today. As for the chest pain, the patient reports that the chest pain has been intermittent since its onset on Sunday. It does not radiate. There are no aggravating factors. There are no alleviating factors. The patient also reports the headache and nausea has been fairly constant since Sunday. While in the emergency department, the patient did have an EKG, which was sinus rhythm with no ST changes. It was also similar to EKG obtained on 05/16/18 when the patient was in the emergency department. The patient also had a chest x-ray, which revealed no cardiopulmonary disease. While in the emergency department, the patient also had lab work, which revealed minor macrocytic anemia. In addition, he does have a low sodium at 130 and a lactic acid of 2.3 with elevated AST and ALT of 91 and 94 respectively. The patient also has an elevated alk phos of 411. PAST MEDICAL HISTORY: 1. Alcohol abuse. 2. Alcohol cirrhosis. PAST SURGICAL HISTORY: Hernia repair HOME MEDICATIONS: 1. Clonidine 0.1 mg tabs p.o. t.i.d. 2. Norvasc 7.5 mg p.o. daily. 3. Mag oxide 400 mg p.o. b.i.d. 4. Famotidine 20 mg p.o. b.i.d. ALLERGIES: No known drug allergies. FAMILY HISTORY: The patient's parents are alive and well. Father has hypertension and hyperlipidemia. Mother has hypertension and diabetes. SOCIAL HISTORY: The patient reports 2 packs of cigarettes per day for approximately 30 years. The patient is still currently a smoker. The patient reports alcohol abuse. The patient drinks approximately 12-pack of beer per day. He reports he will occasionally drink more if he is "at the club." The patient denies recreational drug use. The patient is currently on disability. 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 The patient lives in the apartment alone. The patient reports his father, Fidencio, will be his surrogate decision maker in the event he is unable to make his own decisions. REVIEW OF SYSTEMS: An 11-point review of systems was performed and all pertinent positives and negatives are in the HPI. All others are negative. PHYSICAL EXAMINATION GENERAL: Mr. Person is a 53-year-old male with past medical history of alcohol abuse and alcohol cirrhosis, who is sitting in bed. He appears in no acute distress. Appears older than stated age. VITAL SIGNS: 97.4, HR 87, RR 16, O2 saturation 98% on room air, BP 169/91. HEENT: EOMs intact. PERRLA. Oral mucosa is moist without lesions. Posterior pharynx is clear. NECK: Supple. Full range of motion. No lymphadenopathy. RESPIRATORY: Lungs are clear. No wheezes, rhonchi, or rales. Good aeration. CARDIAC: S1, S2 present. Regular rate and rhythm. No murmurs, rubs, or gallops. ABDOMEN: Soft, nontender. Bowel sounds x4. EXTREMITIES: No pain or deformities. No edema. No clubbing or cyanosis. SKIN: Grossly intact. NEURO: Cranial nerves II through XII are grossly intact. Coordination intact. Sensation intact. No drift. Strength is 5/5 throughout. DIAGNOSTIC STUDIES/LAB DATA: WBC 5.3, hemoglobin 11.5, hematocrit 33, platelets 156. Sodium 130, chloride 96, carbon dioxide 26, BUN 8, creatinine 0.85, lactic acid 2.3, calcium 1.8. AST 91, ALT 94, alk phos 411. Ammonia 40. Troponin 0.02. BNP 190. Total protein 4.5, albumin 3.1. EKG: Sinus rhythm. No specific ST changes. No change since 05/16/18. Chest x-ray: No acute cardiopulmonary disease. ASSESSMENT AND PLAN: Mr. Person is a 53-year-old male with past medical history significant for alcohol abuse, alcohol cirrhosis, who presented to the emergency department today with dizziness and was found to be in hypertensive urgency. The patient will be admitted to [facility] status: 1. Hypertensive urgency: The patient was recently discharged on amlodipine 7.5 mg p.o. daily and clonidine 0.1 mg p.o. t.i.d. The patient reports that he has taken his amlodipine and clonidine regularly. It should be noted that the patient is somewhat of a poor historian as when asked if he drank this morning, he was unsure as he could not remember. When asked if he has vomited, he is unsure if he has vomited 10 minutes prior to assessment. The patient was given a total of 30 mg of IV hydralazine on 2 separate occasions in the emergency department as his initial blood pressure was 224/108 and 199/103. I will continue hydralazine p.r.n. I will also continue the patient's amlodipine at a higher dose of 10 mg p.o. daily. I will also continue the patient's clonidine at 0.1 mg p.o. t.i.d. The patient will have routine vitals. The patient will have repeat troponins. The patient will have an echocardiogram tomorrow due to persistent hypertension and elevated BNP. I discussed at length the association between the patient's drinking and smoking and its relationship with hypertension. The patient has no motivation to quit either. 2. Dizziness: The patient reports that the dizziness has been present since Sunday and worsened yesterday evening. At this point, I will start the patient on high-dose thiamine given his alcohol abuse. I would recommend considering brain imaging while the patient is inpatient. I will also give the patient meclizine. 3. Chest pain: As mentioned above, the patient's EKG is unchanged. The patient's initial troponin is negative. I will repeat the patient's troponins and he will receive an echocardiogram. 4. Headache: The patient will be provided with Tylenol. The patient will also be placed on a WAM protocol. The patient will be given IV fluids and placed on neuro checks. 5. Nausea: The patient will be provided with Zofran. 6. Alcohol abuse: As mentioned above, the patient was educated at length about his current medical conditions and its association with his alcohol intake. The patient has no desire to quit. The patient will be placed on a WAM protocol and seizure precautions. 7. Alcoholic cirrhosis: The patent has a history of alcohol cirrhosis and during his previous admission, he did have imaging of his liver, which revealed mild hepatomegaly. His AST and ALT are elevated as I previously mentioned. His alk phos is also elevated, which I will repeat tomorrow. Given his recent ultrasound of his liver, I do not think we need to repeat this. The patient will probably benefit from an outpatient followup with GI. I will also order a hep panel. 8. FEN: The patient will be placed on a regular diet. The patient will receive fluid resuscitation in the form of banana bag. 9. Code status: The patient is full code. 10. DVT prophylaxis: The patient is a low risk, therefore he will be encouraged to ambulate and placed on SCDs. 11. Disposition: The patient will probably be placed on observation and will hopefully be discharged in the next 2 days. The patient will need some social work involvement, which I will add a social work consult given his frequent admissions and questionable compliance to medications. I would also continue with psych consult for capacity if deemed necessary. TIME SPENT: Approximately 60 minutes were spent on this admission, greater than half time spent [id number] with the patient discussing discharge plans and instructions. This plan was discussed with my attending, Dr. Chery Jewell, who agrees with my plan. YECENIA HUERTA, ERICKSON [id number]/[facility] #: [id number] KARAN
[2018-05-27] MEDS: Acetaminophen TAB* 325 MG PO PRN ×2 (19:26→23:24)
[2018-05-27] MEDS: Magnesium Oxide TAB* 400 MG PO SCH (20:35)
[2018-05-27] MEDS: Famotidine TAB* 20 MG PO SCH (20:35)
[2018-05-27] MEDS: cloNIDine TAB* 0.1 MG PO SCH (20:36)
[2018-05-27] MEDS ORDERED: cloNIDine TAB* 0.1 MG PO SCH (21:00)
[2018-05-27] MEDS ORDERED: Melatonin 3 MG TAB PO PRN (23:05)
[2018-05-27] MEDS ORDERED: Melatonin 3 MG TAB PO ONE (23:22)
[2018-05-28] MEDS ORDERED: Thiamine IV* 250 MG in NS 0.9% 100 ML* 100 ML IV SCH (06:00)
[2018-05-28 07:28] LABS: HDL Cholesterol 33.4 mg/dL
[2018-05-28] MEDS: Thiamine TAB* 100 MG TAB PO SCH ×2 (08:47→15:30)
[2018-05-28] MEDS: cloNIDine TAB* 0.1 MG PO SCH ×2 (08:47→15:30)
[2018-05-28] MEDS: Magnesium Oxide TAB* 400 MG PO SCH (08:47)
[2018-05-28] MEDS: Acetaminophen TAB* 325 MG PO PRN (08:47)
[2018-05-28 08:48] LABS: ABS Basophils 0 10^3/ul (0-0.2); ABS Eosinophils 0 10^3/ul (0-0.6); ABS Lymphocytes 3.5 10^3/ul (1.0-4.8); ABS Monocytes 0.5 10^3/ul (0-0.8); ABS Neutrophils 2.1 10^3/ul (1.5-7.7); ABS Nucleated RBC 0 10^3/ul; Eosinophil % 0.5 %; Hematocrit 28 % (36-46); Hemoglobin 9.9 g/dL (14.0-18.0); Lymphocyte % 57.2 %; Mean Corpuscular HGB Conc 35 g/dL (31-36); Mean Corpuscular Hemoglobin 34 pg (27-31); Mean Corpuscular Volume 96 fL (80-94); Mean Platelet Volume 6.6 fL (7.4-10.4); Nucleated Red Blood Cells % 0.1; Platelet Count 129 10^3/uL (150-450); Red Blood Count 2.92 10^6 /uL (4.18-5.48); Red Cell Distribution Width 13 % (10.5-15); White Blood Count 6.2 10^3/uL (3.5-10.8)
[2018-05-28] MEDS: Famotidine TAB* 20 MG PO SCH (08:48)
[2018-05-28] MEDS ORDERED: amLODIPine TAB* 5 MG PO SCH (09:00)
[2018-05-28] MEDS ORDERED: Multivitamins/Minerals TAB PO SCH (09:00)
[2018-05-28] MEDS ORDERED: Folic Acid TAB* 1 MG PO SCH (09:00)
[2018-05-28 09:30] LABS: Hepatitis B Surface Antigen Nonreactive (Nonreactive)
[2018-05-28 09:37] VITALS: BP 138/57
[2018-05-28 09:56] LABS: Hepatitis C Antibody Nonreactive (Nonreactive)
--- NOTE | 2018-05-28 14:44 | ECHO ---
Patient: DI HASSAN [facility] Rec#: [id number] : 1965 Date: 05/28/2018 Age: 53y Height: 173 cm / 68.1 in Weight: 79 kg / 174.1 lbs Sex: M BSA: 1.93 Room#: [facility] Admit Date#: 05/27/2018 Type: Inpatient Referring: Marlena Becerra Reading: Kameron Sommer MD Precipitator Supervisor: Magdalena Gallagher RDCS,RDMS Transthoracic Echocardiogram Indication: CP, HTN BP: 165/71 HR: 65 Rhythm: NSR Findings History: HTN, ETOH, smoker, liver cirrhosis Technical Comments: The study quality is good. Left Ventricle: The left ventricular chamber size is normal. Global left ventricular wall motion and contractility are within normal limits. There is normal left ventricular systolic function. The estimated ejection fraction is 55-60%. Abnormal left ventricular diastolic function is observed. Left Atrium: The left atrium is mildly dilated. Right Ventricle: The right ventricular chamber size and systolic function are within normal limits. Right Atrium: The right atrial cavity size is normal. Aortic Valve: The aortic valve is trileaflet. Systolic excursion of the aortic valve is normal. There is no evidence of aortic regurgitation. There is no evidence of aortic stenosis. Mitral Valve: The mitral valve leaflets appear normal. There is no evidence of mitral regurgitation. There is no evidence of mitral stenosis. Tricuspid Valve: The tricuspid valve leaflets are normal. There is no evidence of tricuspid valve regurgitation. Unable to estimate the right ventricular systolic pressure. Pulmonic Valve: The pulmonic valve structure is not well visualized. There is no evidence of pulmonic regurgitation. Pericardium: There is no significant pericardial effusion. Aorta: The aortic root appears normal. There is no dilatation of the aortic arch. The aortic root is normal in size. Pulmonary Artery: The main pulmonary artery is not well visualized. Venous: The inferior vena cava appears normal in size. There is an approximate 50% respiratory change in the inferior vena cava dimension. Summary: There was not any prior study for comparison. Conclusions Global left ventricular wall motion and contractility are within normal limits. The estimated ejection fraction is 55-60%. The right ventricular chamber size and systolic function are within normal limits. There is no evidence of aortic stenosis. There is no evidence of mitral regurgitation. There is no evidence of tricuspid valve regurgitation. Unable to estimate the right ventricular systolic pressure. There is no significant pericardial effusion. Measurements Name Value Normal Range RVIDd (AP) 2D 3.1 cm (0.9 - 2.6) RVDdMajor (2D) 3.4 cm (2.2 - 4.4) RAd ISD 4CH 4.8 cm (3.4 - 4.9) RA (A4C)W 3.7 cm (2.9 - 4.6) IVSd (2D) 1 cm (0.6 - 1) LVPWd (2D) 0.8 cm (0.6 - 1) LVIDd (2D) 5.1 cm (3.6 - 5.4) LVIDs (2D) 3.6 cm - LV FS (2D) 30 % (25 - 45) Aortic Annulus 2.2 cm (1.4 - 2.6) Ao root diameter (2D) 2.9 cm (2.1 - 3.5) Aortic arch 2.7 cm (1.8 - 3.4) LA dimension (AP) 2D 3.3 cm (2.3 - 3.8) LAd ISD 4CH 4.7 cm (2.9 - 5.3) LA ISD 4CH W 4.9 cm (2.5 - 4.5) Name Value Normal Range LA ESV BP (A/L) index 39 ml/m2 - Name Value Normal Range MV E-wave Vmax 0.8 m/sec - MV deceleration time 214 msec - MV A-wave Vmax 0.6 m/sec - MV E:A ratio 1.2 ratio - P. vein S-wave Vmax 0.5 m/sec - P. vein D-wave Vmax 0.4 m/sec - P. vein S:D Vmax ratio 1.3 ratio - P. vein A-wave duration 103 msec - LV septal e' Vmax 0.08 m/sec - LV lateral e' Vmax 0.08 m/sec - LV E:e' septal ratio 10 ratio - LV E:e' lateral ratio 10 ratio - Name Value Normal Range AV Vmax 1.6 m/sec - AV VTI 33 cm - AV peak gradient 10 mmHg - AV mean gradient 5 mmHg - LVOT Vmax 1.1 m/sec - LVOT VTI 23 cm - LVOT peak gradient 5 mmHg - LVOT mean gradient 3 mmHg - ROBERTO Vmax 0.8 m/sec - Name Value Normal Range RAP 8 mmHg - IVC diameter 2.1 cm - Name Value Normal Range PV Vmax 0.4 m/sec - PV peak gradient 1 mmHg -
[2018-05-28 14:55] LABS: Albumin 2.7 g/dL (3.2-5.2); Albumin/Globulin Ratio 1.4 (1-3); BUN/Creatinine Ratio 9.6 (8-20); Calcium 8.1 mg/dL (8.6-10.3); EGFR African American 100.8 (>60); EGFR Non-African American 83.3 (>60); Globulin 1.9 g/dL (2-4); Potassium 3.5 mmol/L (3.5-5.0); Total Bilirubin 0.7 mg/dL (0.2-1.0); Total Protein 4.6 g/dL (6.4-8.9)
--- NOTE | 2018-05-29 22:39 | DS ---
DISCHARGE SUMMARY: DATE OF ADMISSION: 05/27/18 DATE OF DISCHARGE: 05/28/18 ATTENDING PHYSICIAN WHILE IN THE HOSPITAL: Dr. Lanette Franco * (dictated by Brody Hernandez NP). PRIMARY DIAGNOSIS: Hypertensive urgency. SECONDARY DIAGNOSES: 1. Alcohol abuse. 2. Alcoholic cirrhosis. STUDIES COMPLETED WHILE IN THE HOSPITAL: He had a chest x-ray on 05/27/18. Radiologist's impression, no active cardiopulmonary disease. He had an electrocardiogram on 05/27/18, which showed sinus rhythm at a rate of 66. He had a transthoracic echocardiogram which showed global left ventricular wall motion contractility within normal limits, ejection fraction of 55-60%, right ventricular chamber sizes and systolic function were within normal limits. No evidence of aortic stenosis. No evidence of mitral regurgitation. No tricuspid valve regurgitation. Unable to estimate the right ventricular systolic pressure. There is no significant pericardial effusion. DISCHARGE MEDICATIONS: New home medications: 1. Amlodipine 10 mg p.o. daily. 2. Clonidine 0.2 mg p.o. t.i.d. Continued home medications: 1. Multivitamin 1 tablet p.o. daily. 2. Magnesium oxide 400 mg p.o. b.i.d. 3. Pepcid 20 mg p.o. b.i.d. 4. Folic acid 1 mg p.o. daily. 5. Vitamin B 1 tab p.o. daily. HISTORY OF PRESENT ILLNESS AND HOSPITAL COURSE: Mr. Person is a 53-year-old male with a past medical history significant for alcohol abuse, alcohol cirrhosis, who presented to the emergency room on 05/27/18 due to worsening dizziness since the evening prior. He complains of headache, chest pressure, nausea and while in the emergency room, he was noted to be hypertensive, therefore the hospitalists were asked to evaluate him for admission. During the assessment, the patient reports that his dizziness started approximately on Sunday. He awoke on 05/22/18 with dizziness and chest pain. He reports that the dizziness has been constant since. No aggravating or alleviating factors. He reports the dizziness worsened last night, therefore he came to the emergency room today. As for the chest pain, the patient reports that the chest pain has been intermittent, on and off since Sunday. It does not radiate. There are no aggravating factors. There are no alleviating factors. The patient also reports that he has a headache with nausea and this has been constant since Sunday. While in the emergency room, the patient had an EKG that showed sinus rhythm with no ST changes. He had a chest x-ray that revealed no cardiopulmonary disease and due to his complaints of dizziness, headache, and hypertensive urgency, we were asked to see and evaluate him for admission. While in the hospital, the patient's medications were adjusted and his hypertension and his blood pressure normalized. Norvasc was increased to 10 mg p.o. daily and clonidine to 0.2 mg t.i.d. The patient also had a transthoracic echocardiogram which was within normal limits and showing an EF of 55-60%. The patient had no further episodes of chest pain and at this time is stable for discharge home. REVIEW OF SYSTEMS: The patient denies any chest pain. Denies any nausea, vomiting, or diarrhea. Denies any fever or chills. Denies any abdominal pain. Denies chest pain or shortness of breath. Denies any difficulty with urination. PHYSICAL EXAMINATION: General: At this time, Mr. Person is alert and oriented, resting in bed. He answers questions appropriately. He is in no acute distress. HEENT: Head is atraumatic, normocephalic. Eyes: EOMs are intact. Sclerae anicteric and not pale. Oral mucosa appeared to be moist. Neck is supple. Lungs are clear to auscultation bilaterally. No wheezes, rales, or rhonchi. Cardiac: S1, S2. Regular rate and rhythm. No murmurs, rubs, or gallops. Abdomen is soft and nontender. Bowel sounds are present x4. Extremities: He is able to move all 4 extremities with 5/5 strength. Neurologic: He is awake, alert, and oriented x3. Speech is clear. No gross focal neuro deficits are noted. Skin is intact. At this time, Mr. Person is stable for discharge home. Vital signs are as follows: Blood pressure 138/57, temperature was 97.5, heart rate 57, respirations 16, O2 saturation 100% on room air. DISCHARGE PLAN: Mr. Person will be discharged back home. Activity as tolerated. 1. Hypertensive urgency. The patient was hypertensive on admission to the hospital. His medications were adjusted and his blood pressure normalized. The patient reports that he feels better after normalization of his blood pressure. He also did have a transthoracic echocardiogram during this hospitalization which was within normal limits, showing an ejection fraction of 55-60%. 2. Alcohol abuse. At this time, the patient has no interest in pursuing rehab for his alcohol addiction. Rehab was offered during this hospitalization but the patient declined. The patient reports he has no plans to continue to quit drinking. I would recommend to continue on folic acid, multivitamin, and vitamin B at home. 3. Elevated liver function tests. I suspect this is related to his chronic alcohol use and alcoholic cirrhosis of liver. They were trending down during this hospitalization. Again, I have recommended that the patient refrain from drinking alcohol. The patient was instructed to return to the emergency room for any chest pain, shortness of breath, tremors, symptoms of withdrawal, or any other concerning symptoms. The patient should follow up with the primary care provider in 4-7 days. CONDITION ON DISCHARGE: Stable. DISPOSITION ON DISCHARGE: To home. TIME SPENT: Time spent on this discharge was 60 minutes, greater than half that time was spent with the patient discussing discharge plans and instructions. BRODY HERNANDEZ NP [id number]/[facility] #: [id number] KARAN
== END 2018-05-28 15:45 | disposition home or self-care (01) ==
LOC: ED 09:24 → MED 15:06
PROVIDERS: ADMIT Internal Medicine; ATTEND Internal Medicine
DX: F10.10 Alcohol abuse, uncomplicated (principal); K70.30 Alcoholic cirrhosis of liver without ascites; I10 Essential (primary) hypertension; R51 Headache; R42 Dizziness and giddiness; R79.89 Other specified abnormal findings of blood chemistry
CPT/HCPCS: 36415; 71046; 80053; 80061; 80074; 80320; 82140; 82550; 82607; 82746; 83605; 83735; 83880; 84443; 84484; 85025; 85610; 85730; 86140; 93005; 93306; 96374; 96375; 99283; A9270-GY; G0378; G0480; G8978-GP-CH; G8979-GP-CH; G8980-GP-CH; J0360; J3411

== ENCOUNTER → 2018-05-29 15:01 | Emergency (ER) | payer MEDICARE ==
[~2018-05-29 15:01] MED LIST: Albuterol 2.5 MG/3 ML NEB.SOL* (0.083%) INH ONE; Albuterol HFA INHALER* 8 gm MDI INH ONE; Albuterol/Ipratropium NEB.SOL* Albuterol 2.5 MG/Ipratropium 0.5 MG 3 ML INH ONE; NS 0.9% 1000 ML** 1,000 ML IV ONE; Potassium Chlor TAB* 20 MEQ TAB.ER PO ONE
--- NOTE | 2018-05-29 15:41 | ED ---
HPI Chest Pain - HPI Summary HPI Summary: This patient is a 53 year old M presenting to [facility] with a chief complaint of intermittent left anterior CP since 05/22/18. The patient was seen at [facility] and admitted overnight from 05/27/18-05/28/18 for HTN urgency, ETOH abuse and elevated liver function. The patient notes that his symptoms subsided after he was discharged from [facility] and then returned as severe today at 13:00. The patient describes the pain as a heavy pressure and he notes that it radiates to his left shoulder. He notes the pain is currently in his shoulder. The patient rates the pain as initially 5/10 but notes it is now 8/10 in severity. Symptoms aggravated by nothing. Symptoms alleviated by nothing. Patient reports SOB, dizziness, nausea, lower abd pain (in LLQ and RLQ), and tenderness in bilateral legs (L worse than R). Patient also notes emesis x3 at 13:00 with the first of undigested food and just mucus for the others. Patient denies dysuria or burning with urination, dark tarry stool, or blood in stool. Patient notes that he was given several prescriptions (Folic acid, thiamine, amlodipine, and clonidine) but they have not alleviated his symptoms. The patient notes that he drinks daily and he has had 6 beers today. Per triage, the patients last drink was today at 12:00. Patient smokes 2 ppd for 30 years. 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 Patient sees PCP at [facility]. The patient notes that he lives by himself. He last had a cardiac stress test 3 years ago. In room , HR was 74 bpm, BP was 142/80, and SpO2 99%. - History of Current Complaint Chief Complaint: EDChestPainROMI Time Seen by Provider: 05/29/18 15:22 Hx Obtained From: Patient Onset/Duration: Started Weeks Ago - 1 week, Atraumatic, Still Present, Worse Since - 13:00 Time of Onset: 13:00 Timing: Intermittent Initial Severity: Mild Current Severity: Severe Pain Intensity: 8 Pain Scale Used: 0-10 Numeric Chest Pain Location: Left Anterior Chest Pain Radiates: Yes Chest Pain Radiates To:: Shoulder - left Character: Pressure/Squeezing - heavy pressure Aggravating Factor(s): Nothing Alleviating Factor(s): Nothing Associated Signs and Symptoms: Positive: Chest Pain, Dizziness, Shortness of Breath, Nausea, Abdominal Pain - lower (LLQ and RLQ), Vomiting - x3, Other: - bilateral leg tenderness (L worse than R), Related History: MRSE/VRE - MRSA - Allergy/Home Medications Allergies/Adverse Reactions: Allergies Allergy/AdvReac Type Severity Reaction Status Date / Time No Known Allergies Allergy Verified 05/29/18 15:17 PMH/Surg Hx/FS Hx/Imm Hx Previously Healthy: Yes Endocrine/Hematology History: Denies: Hx Anticoagulant Therapy Cardiovascular History: Reports: Hx Hypertension - HIGH NOW, TYPICALLY NORMAL. 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, Hx Hiatal Hernia History: Denies: Hx Dialysis Sensory History: Denies: Hx Contacts or Glasses, Hx Eye Prosthesis, Hx Hearing Aid Opthamlomology History: Denies: Hx Contacts or Glasses, Hx Eye Prosthesis Neurological History: Denies: Hx Developmental Delay Psychiatric History: Reports: Hx Anxiety, Hx Depression, Hx Substance Abuse - EtOH Denies: Hx Attention Deficit Hyperactivity Disorder, Hx Autism, Hx Eating Disorder, Hx Panic Disorder, Hx Post Traumatic Stress Disorder, Hx Inpatient Treatment, Hx Community Mental Health Tx, Hx Schizophrenia, Hx Bipolar Disorder , Hx Suicide Attempt, Hx of Violent Episodes Against Others, Other Psychiatric Issues/Disorders - Surgical History Surgery Procedure, Year, and Place: inguinal hernia repair Infectious Disease History: No Infectious Disease History: Denies: Traveled Outside the [place] in Last 30 Days - Family History Known Family History: Positive: Hypertension, Other - HLD Negative: Cardiac Disease, Diabetes - Social History Alcohol Use: Daily Alcohol Amount: 6 12oz beers today, last drink 12:00 Hx Substance Use: No Substance Use Type: Reports: None Hx Tobacco Use: Yes Smoking Status (MU): Heavy Every Day Tobacco Smoker Type: Cigarettes Amount Used/How Often: 2 ppd Review of Systems Positive: Chest Pain Positive: Shortness Of Breath Positive: Abdominal Pain - RLQ and LLQ, Vomiting, Nausea Musculoskeletal: Other - tenderness in bilateral legs (left worse than right) Neurological: Other - dizziness All Other Systems Reviewed And Are Negative: Yes Physical Exam - Summary Physical Exam Summary: Appearance: Ill-appearing, severe pain distress, well-nourished Skin: Warm, color reflects adequate perfusion, dry. Bilateral arms have ecchymosis on dorsal forearms. Mottling in left lower leg Head: Normal Head/Face inspection, atraumatic Eyes: Conjunctiva clear ENT: Normal inspection, dry mucosa Neck: Supple, no nodes, no JVD Respiratory: Lungs clear, normal breath sounds, no respiratory distress Cardio: RRR, No murmur, pulses normal, brisk capillary refill Abdomen: Soft, nontender Bowel sounds: Present Musculoskeletal: Strength Intact/ROM intact, no calf tenderness, no edema. Good pulses in feet Psychological: Normal Neuro: Alert, muscle tone normal, no focal deficit Triage Information Reviewed: Yes Vital Signs On Initial Exam: Initial Vitals Temp Pulse Resp BP Pulse Ox 97.9 F 86 16 143/79 100 05/29/18 15:12 05/29/18 15:12 05/29/18 15:12 05/29/18 15:12 05/29/18 15:12 Vital Signs Reviewed: Yes Diagnostics - Vital Signs Vital Signs Temp Pulse Resp BP Pulse Ox 05/29/18 15:36 99 05/29/18 15:24 75 167/86 100 05/29/18 15:12 97.9 F 86 16 143/79 100 - Laboratory Result Diagrams: 05/29/18 15:51 05/29/18 15:51 Lab Statement: Any lab studies that have been ordered have been reviewed, and results considered in the medical decision making process. - Radiology CXR Radiology Interpretation Completed By: Radiologist Summary of Radiographic Findings: Impression: no active cardiopulmonary disease is noted. Dr. Rosales has reviewed this report. - EKG 15:25 Cardiac Rate: NL - at 73 bpm EKG Rhythm: Sinus Rhythm ST Segment: Normal Ectopy: None Summary of EKG Findings: An EKG at 15:25 reveals nml AV/IV CT, nml QTc, and nml axis. No acute changes. Re-Evaluation - Re-Evaluation 1st re-eval Re-Evaluation Time: 20:12 Change: Improved Comment: Reviewed discharge instructions with patient. Chest Pain Course/Dx - Course Course Of Treatment: This patient is a 53 year old M with hx ETOH abuse with a chief complaint of intermittent right anterior CP since 05/22/18. The patient was seen at [facility] and admitted overnight from 05/27/18-05/28/18 for HTN urgency, ETOH abuse and elevated liver function and the patient reports the symptoms returned as severe today at 13:00. The patient describes the pain as a heavy pressure and he notes that it radiates to his left shoulder. Patient reports SOB , dizziness, nausea, lower abd pain (in LLQ and RLQ), emesis x3, and tenderness in bilateral legs (L worse than R). An EKG at 15:25 reveals nml AV/IV CT, nml QTc, and nml axis. No acute changes. CXR reveals, per radiologist, no active cardiopulmonary disease. ED physician has reviewed this radiology report. Per MECHANIC SOUND TECHNICIAN who discharged him 1 day ago, she notes that his liver functions are coming down nicely and that they performed a nml echo 1 day ago. She notes that, socially, the patient has run out of money and his parents are no longer funding him. Test results with no significant abnormalities except for elevated lactic acid and EtOH 102 H. Troponin was 0.01 at 15:51 and again at 18:31. In the ED course the patient was given albuterol duoneb, potassium chloride, IV fluids, and Ventolin. Patient will be discharged home with follow up from PCP. Dx anemia, hypokalemia, bronchospasm, chest pain, ETOH abuse, and ETOH intoxication. The patient is agreeable with this plan. - Diagnoses Provider Diagnoses: Chest pain, Bronchospasm, Dyspnea, Alcohol abuse, Alcohol intoxication, Hypokalemia, Anemia Discharge - Sign-Out/Discharge Documenting (check all that apply): Patient Departure Patient Received Moderate/Deep Sedation with Procedure: No - Discharge Plan Condition: Stable Disposition: HOME Patient Education Materials: Chest Pain (ED), Abuse of Alcohol (ED), Bronchospasm (ED) Referrals: [facility] PHYSICIAN REFERRAL [Outside] - 1 Day Additional Instructions: Follow up with primary care physician in 1-2 days. Return to the emergency room with any new or worsening symptoms. - Attestation Statements Document Initiated by Nedaibe: Yes Documenting Scribe: Erika Fatima Provider For Whom Korin is Documenting (Include Credential): Dr. Araceli Rosales MD. Scribe Attestation: Erika Liagn, scribed for Dr. Araceli Rosales MD. on 05/29/18 at 2010. Status of Scribe Document: Ready
[2018-05-29 16:04] LABS: ABS Basophils 0 10^3/ul (0-0.2); ABS Eosinophils 0 10^3/ul (0-0.6); ABS Lymphocytes 2.4 10^3/ul (1.0-4.8); ABS Monocytes 0.4 10^3/ul (0-0.8); ABS Neutrophils 2.4 10^3/ul (1.5-7.7); ABS Nucleated RBC 0 10^3/ul; Eosinophil % 0.7 %; Hematocrit 30 % (36-46); Hemoglobin 10.3 g/dL (14.0-18.0); Lymphocyte % 45.3 %; Mean Corpuscular HGB Conc 35 g/dL (31-36); Mean Corpuscular Hemoglobin 34 pg (27-31); Mean Corpuscular Volume 98 fL (80-94); Mean Platelet Volume 6.6 fL (7.4-10.4); Nucleated Red Blood Cells % 0.1; Platelet Count 164 10^3/uL (150-450); Red Blood Count 3.03 10^6 /uL (4.18-5.48); Red Cell Distribution Width 13 % (10.5-15); White Blood Count 5.2 10^3/uL (3.5-10.8)
[2018-05-29 16:27] LABS: Troponin I 0.01 ng/mL (<0.04)
[2018-05-29 16:30] LABS: CKMB ng/mL 2.1 ng/mL (0.6-6.3)
[2018-05-29 16:35] LABS: Albumin 2.9 g/dL (3.2-5.2); Albumin/Globulin Ratio 1.5 (1-3); Calcium 7.8 mg/dL (8.6-10.3); EGFR African American 93.9 (>60); EGFR Non-African American 77.6 (>60); Magnesium 1.9 mg/dL (1.9-2.7); Potassium 3.3 mmol/L (3.5-5.0); Total Bilirubin 0.4 mg/dL (0.2-1.0); Total Protein 4.9 g/dL (6.4-8.9)
[2018-05-29 16:49] LABS: T4, Total 4.14 mcg/dL (6.09-12.23)
[2018-05-29 16:53] LABS: TSH (Thyroid Stimulating Horm) 1.95 mcIU/mL (0.34-5.60)
[2018-05-29 18:02] LABS: Urine Appearance Cloudy; Urine Bilirubin Negative (Negative); Urine Blood Negative (Negative); Urine Color Yellow; Urine Glucose Negative (Negative); Urine Ketones Trace (Negative); Urine Nitrite Negative (Negative); Urine Protein Negative (Negative); Urine Specific Gravity 1.019 (1.010-1.030); Urine Urobilinogen Negative (Negative)
[2018-05-29 18:20] LABS: Barbiturates Urine Screen None Detected (None Detect); Benzodiazepine Urine Screen None Detected (None Detect); Urine Cannabinoids Screen None Detected (None Detect)
[2018-05-29 20:12] VITALS: BP 157/81
== END | disposition home or self-care (01) ==
LOC: ED 15:01
DX: R07.9 Chest pain, unspecified (principal); J98.01 Acute bronchospasm; R06.00 Dyspnea, unspecified; I10 Essential (primary) hypertension; R42 Dizziness and giddiness; R11.2 Nausea with vomiting, unspecified; F17.210 Nicotine dependence, cigarettes, uncomplicated; F10.10 Alcohol abuse, uncomplicated; E87.6 Hypokalemia; D64.9 Anemia, unspecified
CPT/HCPCS: 36415; 71045; 80053; 80307; 80320; 81003; 82150; 82550; 82553; 83605; 83690; 83735; 83880; 84436; 84443; 84484; 85025; 85730; 93005; 96360; 99284; A9270-GY; G0480

== ENCOUNTER 2018-05-30 20:42 | Emergency (ER) | payer MEDICARE ==
[2018-05-30] MEDS ORDERED: Metoclopramide IV* 5 MG/ML 2 ML VIAL IV SLOW PU ONE (21:05)
--- NOTE | 2018-05-30 21:05 | ED ---
HPI Chest Pain - HPI Summary HPI Summary: This patient is a 53 year old M brought in by ambulance to [facility] with a chief complaint of intermittent left anterior chest pain lasting 3-4 hours since yesterday. It radiates into his left shoulder and arm. He was seen here at [facility] for the same issue. He had a stress test done here yesterday and he passed. He was d/c with dx of anemia, hypokalemia, bronchospasm, chest pain, ETOH abuse, and ETOH intoxication. He was told to follow up with his PCP. Patient claims that when he was here, they left me in my room. Per triage note , patient rates the pain 6/10 in severity. Patient currently reports nausea, vomiting, and SOB. He claims no hx of heart issues prior to this as well as a GI bleed. - History of Current Complaint Chief Complaint: EDChestPainROMI Time Seen by Provider: 05/30/18 20:53 Hx Obtained From: Patient Onset/Duration: Started Days Ago - Yesterday Timing: Intermittent, Lasting Hours - 3-4 hours Pain Intensity: 6 Pain Scale Used: 0-10 Numeric Chest Pain Location: Left Anterior Chest Pain Radiates To:: Shoulder - Left, Arm - Left Associated Signs and Symptoms: Positive: Chest Pain, Shortness of Breath, Nausea , Vomiting - Allergy/Home Medications Allergies/Adverse Reactions: Allergies Allergy/AdvReac Type Severity Reaction Status Date / Time No Known Allergies Allergy Verified 05/29/18 15:17 Home Medications: Home Medications Folic Acid TAB* [Folvite TAB*] 1 mg PO DAILY 05/31/18 [History Confirmed ] PMH/Surg Hx/FS Hx/Imm Hx Endocrine/Hematology History: Denies: Hx Anticoagulant Therapy Cardiovascular History: Reports: Hx Hypertension - HIGH NOW, TYPICALLY NORMAL. 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, Hx Hiatal Hernia History: Denies: Hx Dialysis Sensory History: Denies: Hx Contacts or Glasses, Hx Eye Prosthesis, Hx Hearing Aid Opthamlomology History: Denies: Hx Contacts or Glasses, Hx Eye Prosthesis Neurological History: Denies: Hx Developmental Delay Psychiatric History: Reports: Hx Anxiety, Hx Depression, Hx Substance Abuse - EtOH Denies: Hx Attention Deficit Hyperactivity Disorder, Hx Autism, Hx Eating Disorder, Hx Panic Disorder, Hx Post Traumatic Stress Disorder, Hx Inpatient Treatment, Hx Community Mental Health Tx, Hx Schizophrenia, Hx Bipolar Disorder , Hx Suicide Attempt, Hx of Violent Episodes Against Others, Other Psychiatric Issues/Disorders - Surgical History Surgery Procedure, Year, and Place: inguinal hernia repair Infectious Disease History: Yes Infectious Disease History: Denies: Traveled Outside the [place] in Last 30 Days - Family History Known Family History: Positive: Hypertension, Other - HLD Negative: Cardiac Disease, Diabetes - Social History Alcohol Use: Daily Alcohol Amount: 6 12oz beers today, last drink 12:00 Hx Substance Use: No Substance Use Type: Reports: None Hx Tobacco Use: Yes Smoking Status (MU): Heavy Every Day Tobacco Smoker Type: Cigarettes Amount Used/How Often: 2 ppd Review of Systems Positive: Chest Pain - Left anterior radiating to left shoulder and arm Positive: Shortness Of Breath Positive: Vomiting, Nausea All Other Systems Reviewed And Are Negative: Yes Physical Exam - Summary Physical Exam Summary: VITAL SIGNS: Reviewed. GENERAL: Patient is a well-developed and nourished MALE who is lying comfortable in the stretcher. Patient is not in any acute respiratory distress. HEAD AND FACE: No signs of trauma. No ecchymosis, hematomas or skull depressions. No sinus tenderness. EYES: PERRLA, EOMI x 2, No injected conjunctiva, no nystagmus. EARS: Hearing grossly intact. Ear canals and tympanic membranes are within normal limits. MOUTH: Oropharynx within normal limits. NECK: Supple, trachea is midline, no adenopathy, no JVD, no carotid bruit, no c- spine tenderness, neck with full ROM. CHEST: Symmetric, no tenderness at palpation LUNGS: Clear to auscultation bilaterally. No wheezing or crackles. CVS: Regular rate and rhythm, S1 and S2 present, no murmurs or gallops appreciated. ABDOMEN: Soft, non-tender. No signs of distention. No rebound no guarding, and no masses palpated. Bowel sounds are normal. EXTREMITIES: FROM in all major joints, no edema, no cyanosis or clubbing. NEURO: Alert and oriented x 3. No acute neurological deficits. Speech is normal and follows commands. SKIN: Dry and warm Triage Information Reviewed: Yes Vital Signs On Initial Exam: Initial Vitals Temp Pulse Resp BP Pulse Ox 98.5 F 75 20 165/89 98 05/30/18 20:50 05/30/18 20:50 05/30/18 20:50 05/30/18 20:50 05/30/18 20:50 Vital Signs Reviewed: Yes Diagnostics - Vital Signs Vital Signs Temp Pulse Resp BP Pulse Ox 05/30/18 20:50 98.5 F 75 20 165/89 98 - Laboratory Result Diagrams: 05/30/18 21:14 05/30/18 21:14 Lab Statement: Any lab studies that have been ordered have been reviewed, and results considered in the medical decision making process. - EKG 20:55 Cardiac Rate: NL - 77 BPM EKG Rhythm: Sinus Rhythm Summary of EKG Findings: Normal axis. Normal interval. No ischemic changes. Chest Pain Course/Dx - Course Course Of Treatment: This patient is a 53 year old M brought in by ambulance to [facility] with a chief complaint of intermittent left anterior chest pain lasting 3- 4 hours since yesterday. EKG was normal. Patient will be d/c with atypical chest pain. - Diagnoses Provider Diagnoses: Atypical chest pain Discharge - Sign-Out/Discharge Documenting (check all that apply): Patient Departure - D/C home Patient Received Moderate/Deep Sedation with Procedure: No - Discharge Plan Condition: Stable Disposition: HOME Patient Education Materials: Chest Pain (ED) Referrals: Tenzin Tellez MD [Medical Doctor] - 2 Days Additional Instructions: PLEASE RETURN TO THE ED TO IMMEDIATELY FOR WORSENING OR CONCERNING SYMPTOMS. FOLLOW UP WITH DR. TELLEZ, CARDIOLOGY, FOR A STRESS TEST IN 1-2 DAYS. - Attestation Statements Document Initiated by Scribe: Yes Documenting Scribe: Bismark Torres Provider For Whom Scribe is Documenting (Include Credential): Rolando Miller MD Scribe Attestation: Bismark Liang scribed for Rolando Miller MD on 05/31/18 at 0141. Status of Scribe Document: Ready
[2018-05-30 21:32] LABS: ABS Basophils 0 10^3/ul (0-0.2); ABS Eosinophils 0 10^3/ul (0-0.6); ABS Lymphocytes 3.1 10^3/ul (1.0-4.8); ABS Monocytes 0.7 10^3/ul (0-0.8); ABS Neutrophils 2.5 10^3/ul (1.5-7.7); ABS Nucleated RBC 0 10^3/ul; Eosinophil % 0.6 %; Hematocrit 31 % (36-46); Hemoglobin 10.7 g/dL (14.0-18.0); Lymphocyte % 48.6 %; Mean Corpuscular HGB Conc 35 g/dL (31-36); Mean Corpuscular Hemoglobin 33 pg (27-31); Mean Corpuscular Volume 96 fL (80-94); Mean Platelet Volume 6.8 fL (7.4-10.4); Nucleated Red Blood Cells % 0.1; Platelet Count 174 10^3/uL (150-450); Red Blood Count 3.21 10^6 /uL (4.18-5.48); Red Cell Distribution Width 13 % (10.5-15); White Blood Count 6.4 10^3/uL (3.5-10.8)
[2018-05-30 21:40] LABS: Albumin 3.1 g/dL (3.2-5.2); Albumin/Globulin Ratio 1.4 (1-3); BUN/Creatinine Ratio 9.5 (8-20); EGFR African American 99.6 (>60); EGFR Non-African American 82.3 (>60); Globulin 2.2 g/dL (2-4); Magnesium 1.9 mg/dL (1.9-2.7); Potassium 4.1 mmol/L (3.5-5.0); Total Bilirubin 0.4 mg/dL (0.2-1.0); Total Protein 5.3 g/dL (6.4-8.9)
[2018-05-30 21:41] LABS: Troponin I 0.01 ng/mL (<0.04)
[2018-05-30 21:42] LABS: Activated Partial Thrombo Time 28.7 seconds (26.0-36.3); INR 0.79 (0.77-1.02)
[2018-05-31 01:40] VITALS: BP 168/88
== END 2018-05-31 01:40 | disposition home or self-care (01) ==
LOC: ED 20:42
DX: R07.89 Other chest pain (principal); R06.02 Shortness of breath; R11.2 Nausea with vomiting, unspecified; F17.210 Nicotine dependence, cigarettes, uncomplicated
CPT/HCPCS: 36415; 80053; 82150; 83690; 83735; 84484; 85025; 85610; 85730; 93005; 96374; 99283; J2765

== ENCOUNTER 2018-06-01 16:44 | Emergency (ER) | payer MEDICARE ==
--- NOTE | 2018-06-01 17:31 | ED ---
HPI Chest Pain - HPI Summary HPI Summary: This patient is a 42 year old M brought in by ambulance to [facility] with a chief complaint of chest pain since 05/29/18. The patient rates the pain 4/10 in severity. Patient reports SOB and coughing occasionally. Patient denies fever, chills, and vomiting. He was given nitro in the ambulance. Patient had a stress test done here 05/29/18. He lives in [place] by himself. No PMHx of [place]. He smokes 2 ppd, had his last beer a few hours ago, and does not use any recreational drugs. - History of Current Complaint Time Seen by Provider: 06/01/18 17:02 Hx Obtained From: Patient Onset/Duration: Started Days Ago, Still Present Current Severity: Moderate Pain Intensity: 4 Pain Scale Used: 0-10 Numeric Associated Signs and Symptoms: Positive: Shortness of Breath, Cough - occasionally. Negative: Fever, Chills, Vomiting - Allergy/Home Medications Allergies/Adverse Reactions: Allergies Allergy/AdvReac Type Severity Reaction Status Date / Time No Known Allergies Allergy Verified 05/29/18 15:17 PMH/Surg Hx/FS Hx/Imm Hx Endocrine/Hematology History: Denies: Hx Anticoagulant Therapy Cardiovascular History: Reports: Hx Hypertension - HIGH NOW, TYPICALLY NORMAL. 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, Hx Hiatal Hernia History: Denies: Hx Dialysis Sensory History: Denies: Hx Contacts or Glasses, Hx Eye Prosthesis, Hx Hearing Aid Opthamlomology History: Denies: Hx Contacts or Glasses, Hx Eye Prosthesis Neurological History: Denies: Hx Developmental Delay Psychiatric History: Reports: Hx Anxiety, Hx Depression, Hx Substance Abuse - EtOH Denies: Hx Attention Deficit Hyperactivity Disorder, Hx Autism, Hx Eating Disorder, Hx Panic Disorder, Hx Post Traumatic Stress Disorder, Hx Inpatient Treatment, Hx Community Mental Health Tx, Hx Schizophrenia, Hx Bipolar Disorder , Hx Suicide Attempt, Hx of Violent Episodes Against Others, Other Psychiatric Issues/Disorders - Surgical History Surgery Procedure, Year, and Place: inguinal hernia repair Infectious Disease History: No Infectious Disease History: Denies: Traveled Outside the [place] in Last 30 Days - Family History Known Family History: Positive: Hypertension, Other - HLD Negative: Cardiac Disease, Diabetes - Social History Alcohol Use: Daily Alcohol Amount: 12 ppd, last drink 15:00 Hx Substance Use: No Substance Use Type: Reports: None Hx Tobacco Use: Yes Smoking Status (MU): Heavy Every Day Tobacco Smoker Type: Cigarettes Amount Used/How Often: 2 ppd Review of Systems Negative: Fever, Chills Positive: Chest Pain Positive: Shortness Of Breath, Cough - Occasionally Negative: Vomiting All Other Systems Reviewed And Are Negative: Yes Physical Exam - Summary Physical Exam Summary: GENERAL: Patient is a well-developed and nourished __(M)__ who is lying comfortable in the stretcher. Patient is not in any acute respiratory distress. HEAD AND FACE: Normocephalic EYES: PERRLA, EOMI x 2. EARS: Hearing grossly intact. MOUTH: Oropharynx within normal limits. NECK: Supple, trachea is midline, no adenopathy, no JVD, no carotid bruit. CHEST: Symmetric, no tenderness at palpation LUNGS: Clear to auscultation bilaterally. No wheezing or crackles. CVS: Regular rate and rhythm, S1 and S2 present, no murmurs or gallops appreciated. ABDOMEN: Soft, non-tender. Bowel sounds are normal. No abdominal abnormal pulsations. EXTREMITIES: Full ROM in all major joints. Ecchymosis along LUE. NEURO: Alert and oriented x 3. No acute neurological deficits. Speech is normal and follows commands. SKIN: Dry and warm Triage Information Reviewed: No Vital Signs On Initial Exam: Initial Vitals Temp Pulse Resp BP Pulse Ox 99.0 F 73 17 180/88 96 06/01/18 17:05 06/01/18 17:05 06/01/18 17:05 06/01/18 17:05 06/01/18 17:05 Vital Signs Reviewed: Yes Diagnostics - Vital Signs Vital Signs Temp Pulse Resp BP Pulse Ox 06/01/18 17:05 99.0 F 73 17 180/88 96 - Laboratory Result Diagrams: 06/01/18 17:48 06/01/18 17:48 Lab Statement: Any lab studies that have been ordered have been reviewed, and results considered in the medical decision making process. - Radiology Chest x-ray Radiology Interpretation Completed By: Radiologist Summary of Radiographic Findings: 17:46. No active cardiopulmonary disease. ED Physician has reviewed this imaging report. - EKG 17:15 Cardiac Rate: NL - 71 bpm EKG Rhythm: Sinus Rhythm EKG Comparison: Other - slight change from 05/30/18 Summary of EKG Findings: inverted T waves V1 and V2 Chest Pain Course/Dx - Course Course Of Treatment: This patient is a 42 year old M brought in by ambulance to [facility] with a chief complaint of chest pain since 05/29/18. Physical exam: Normal except ecchymosis along LUE. Chest x-ray: No active cardiopulmonary disease. EKG: Normal sinus 71 bpm, inverted T waves V1 and V2, a slight change from 05/30/18. Patient has left AMA. He is adamant that he wants to leave. He is awake, alert and oriented x3 and seems capable of making informed decisions and so was allowed to sig out AMA. - Diagnoses Provider Diagnoses: Chest pain Discharge - Sign-Out/Discharge Documenting (check all that apply): Patient Departure - D/C Patient Received Moderate/Deep Sedation with Procedure: No - Discharge Plan Condition: Stable Disposition: AGAINST MEDICAL ADVICE Patient Education Materials: Chest Pain (ED) Referrals: Care [facility] [Outside] Additional Instructions: Follow up with your primary care physician in 1-3 days. RETURN TO THE EMERGENCY DEPARTMENT FOR CHANGING OR WORSENING SYMPTOMS. - Billing Disposition and Condition Condition: STABLE Disposition: Against Medical Advice - Attestation Statements Document Initiated by Nedaibdeny: Yes Documenting Scribe: Bismark Torres Provider For Whom Korin is Documenting (Include Credential): Elle Liao MD Scribe Attestation: Bismark Liang scribed for Elle Liao MD on 06/01/18 at 1828. Scribe Documentation Reviewed: Yes Provider Attestation: The documentation as recorded by the Bismark lennon accurately reflects the service I personally performed and the decisions made by me, Elle Liao MD Status of Scribe Document: Viewed
[2018-06-01] MEDS ORDERED: Aspirin 81 mg CHEW TAB* 81 MG TAB.CHEW PO ONE (17:51)
[2018-06-01] MEDS ORDERED: Nitroglycerin TAB 0.4 MG* 0.4 MG TAB SL ONE (17:51)
[2018-06-01 17:55] LABS: ABS Basophils 0 10^3/ul (0-0.2); ABS Eosinophils 0 10^3/ul (0-0.6); ABS Monocytes 0.7 10^3/ul (0-0.8); ABS Neutrophils 2.4 10^3/ul (1.5-7.7); ABS Nucleated RBC 0 10^3/ul; Eosinophil % 0.3 %; Hematocrit 29 % (36-46); Lymphocyte % 49.2 %; Mean Corpuscular HGB Conc 34 g/dL (31-36); Mean Corpuscular Hemoglobin 33 pg (27-31); Mean Corpuscular Volume 97 fL (80-94); Mean Platelet Volume 6.6 fL (7.4-10.4); Nucleated Red Blood Cells % 0.1; Platelet Count 178 10^3/uL (150-450); Red Blood Count 3.02 10^6 /uL (4.18-5.48); Red Cell Distribution Width 13 % (10.5-15); White Blood Count 6.2 10^3/uL (3.5-10.8)
[2018-06-01 18:04] LABS: INR 0.83 (0.77-1.02)
[2018-06-01 18:12] LABS: Albumin 2.8 g/dL (3.2-5.2); Albumin/Globulin Ratio 1.4 (1-3); BUN/Creatinine Ratio 12.2 (8-20); Calcium 7.6 mg/dL (8.6-10.3); EGFR African American 96.1 (>60); EGFR Non-African American 79.4 (>60); Potassium 4.1 mmol/L (3.5-5.0); Total Bilirubin 0.3 mg/dL (0.2-1.0); Total Protein 4.8 g/dL (6.4-8.9)
[2018-06-01 18:13] LABS: Troponin I 0.01 ng/mL (<0.04)
[2018-06-01 18:20] VITALS: BP 185/90
== END 2018-06-01 18:20 | disposition left against medical advice (07) ==
LOC: ED 16:44
DX: R07.89 Other chest pain (principal); R06.02 Shortness of breath; R05 Cough; F17.210 Nicotine dependence, cigarettes, uncomplicated
CPT/HCPCS: 36415; 71045; 80053; 83605; 83880; 84484; 85025; 85610; 85730; 93005; 99284

== ENCOUNTER 2018-06-02 16:39 | Emergency (ER) | payer MEDICARE ==
--- NOTE | 2018-06-02 17:25 | ED ---
HPI Chest Pain - HPI Summary HPI Summary: A 53 y/o M arriving on foot presents to ED with c/o CP onset four days ago. Associated sx: SOB. Pt has been seen at [facility] on 05/29, 05/30 and 06/01 for CP. Aggravating factors: deep breaths, exertion. Pain is rated 6 out of 10. He is a smoker. - History of Current Complaint Chief Complaint: EDChestPainROMI Time Seen by Provider: 06/02/18 17:15 Hx Obtained From: Patient, Medical Records Onset/Duration: Started Days Ago, Atraumatic, Still Present Timing: Constant, Lasting Days Initial Severity: Moderate Current Severity: Moderate Pain Intensity: 6 Pain Scale Used: 0-10 Numeric Aggravating Factor(s): Exertion, Deep Breaths Associated Signs and Symptoms: Positive: Shortness of Breath - Allergy/Home Medications Allergies/Adverse Reactions: Allergies Allergy/AdvReac Type Severity Reaction Status Date / Time No Known Allergies Allergy Verified 06/02/18 16:46 PMH/Surg Hx/FS Hx/Imm Hx Previously Healthy: No Endocrine/Hematology History: Denies: Hx Anticoagulant Therapy Cardiovascular History: Reports: Hx Hypertension - HIGH NOW, TYPICALLY NORMAL. 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, Hx Hiatal Hernia History: Denies: Hx Dialysis Sensory History: Denies: Hx Contacts or Glasses, Hx Eye Prosthesis, Hx Hearing Aid Opthamlomology History: Denies: Hx Contacts or Glasses, Hx Eye Prosthesis Neurological History: Denies: Hx Developmental Delay Psychiatric History: Reports: Hx Anxiety, Hx Depression, Hx Substance Abuse - EtOH Denies: Hx Attention Deficit Hyperactivity Disorder, Hx Autism, Hx Eating Disorder, Hx Panic Disorder, Hx Post Traumatic Stress Disorder, Hx Inpatient Treatment, Hx Community Mental Health Tx, Hx Schizophrenia, Hx Bipolar Disorder , Hx Suicide Attempt, Hx of Violent Episodes Against Others, Other Psychiatric Issues/Disorders - Surgical History Surgery Procedure, Year, and Place: inguinal hernia repair Infectious Disease History: No Infectious Disease History: Denies: Traveled Outside the [place] in Last 30 Days - Family History Known Family History: Positive: Hypertension, Diabetes - mother, Other - HLD Negative: Cardiac Disease - Social History Occupation: Disabled Lives: Alone Alcohol Use: Daily Alcohol Amount: 12 ppd, last drink 15:00 Hx Substance Use: No Substance Use Type: Reports: None Hx Tobacco Use: Yes Smoking Status (MU): Heavy Every Day Tobacco Smoker Type: Cigarettes Amount Used/How Often: 2 ppd Review of Systems Negative: Fever Positive: Chest Pain Positive: Shortness Of Breath All Other Systems Reviewed And Are Negative: Yes Physical Exam - Summary Physical Exam Summary: Appearance: The patient is well-nourished in no acute distress and in no acute pain. Smells of ETOH. Skin: The skin is warm and dry and skin color reflects adequate perfusion. Bruising over UE diffusely and scattered over chest. HEENT: The head is normocephalic and atraumatic. The pupils are equal and reactive. The conjunctivae are clear and without drainage. Nares are patent and without drainage. Mouth reveals moist mucous membranes and the throat is without erythema and exudate. The external ears are intact. The ear canals are patent and without drainage. The tympanic membranes are intact. Neck: the neck is supple with full range of motion and non-tender. There are no carotid bruits. There is no neck vein distension. Respiratory: Chest is non-tender. Lungs are clear to auscultation and breath sounds are symmetrical and equal. Cardiovascular: Heart is regular rate and rhythm. There is no murmur or rub auscultated. There is no peripheral edema and pulses are symmetrical and equal. Abdomen: The abdomen is soft and non-tender. There are normal bowel sounds heard in all four quadrants and there is no organomegaly palpated. Musculoskeletal: There is no back tenderness noted. Extremities are non-tender with full range of motion. There is good capillary refill. There is no peripheral edema or calf tenderness elicited. Neurological: Patient is alert and oriented to person, place and time. The patient has symmetrical motor strength in all four extremities. Cranial nerves are grossly intact. Deep tendon reflexes are symmetrical and equal in all four extremities. Psychiatric: The patient has an appropriate affect and does not exhibit any anxiety or depression. Triage Information Reviewed: Yes Vital Signs On Initial Exam: Initial Vitals Temp Pulse Resp BP Pulse Ox 98.4 F 96 20 196/103 100 06/02/18 16:42 06/02/18 16:42 06/02/18 16:42 06/02/18 16:42 06/02/18 16:42 Vital Signs Reviewed: Yes Diagnostics - Vital Signs Vital Signs Temp Pulse Resp BP Pulse Ox 03/24/19 16:42 98.4 F 96 20 196/103 100 - Laboratory Lab Statement: Any lab studies that have been ordered have been reviewed, and results considered in the medical decision making process. - EKG 1752 Cardiac Rate: NL - 92 bpm EKG Rhythm: Sinus Rhythm ST Segment: Normal Ectopy: None Summary of EKG Findings: No STEMI 1652 Cardiac Rate: NL - 92 bpm EKG Rhythm: Sinus Rhythm ST Segment: Normal Ectopy: None Summary of EKG Findings: No STEMI Chest Pain Course/Dx - Course Course Of Treatment: Mr. Person has been presenting to the emergency department frequently in the last week or 2 for chest pain and did so again tonight. Tonight as most of the previous episodes he got very quickly frustrated with the process and demanded to leave. He has a long history of drinking and was admitted to the hospital recently for what was considered to be a hypertensive issue. He was moderately hypertensive on presentation today. He had no EKG changes, a negative troponin and only a very slightly elevated blood alcohol. He was clinically sober by the time his labs are back and he was demanding to leave therefore he was discharged. I encouraged him to follow-up with his PCP. On his previous visits recently he's had evidence of liver damage and may indeed be beginning to have some mental impairment however he was oriented here and clinically able to make decisions for himself. I had no basis to keep him against his will. - Diagnoses Provider Diagnoses: Chest pain Discharge - Sign-Out/Discharge Documenting (check all that apply): Patient Departure - D/C Patient Received Moderate/Deep Sedation with Procedure: No - Discharge Plan Condition: Stable Disposition: HOME Patient Education Materials: Chest Pain (ED) Referrals: [facility] [Outside] [facility] [Outside] - As Soon As Possible Additional Instructions: Establish and follow up with a primary care provider tomorrow. Please return to the ED if you experience new or worsening symptoms. - Billing Disposition and Condition Condition: STABLE Disposition: Home - Attestation Statements Document Initiated by Scribe: Yes Documenting Scribe: Reno Peng Provider For Whom Scribe is Documenting (Include Credential): Dr. Dangelo Cottrell MD Scribe Attestation: I, Reno Peng scrwili for Dr. Dangelo Cottrell MD on 06/02/18 at 2014. Scribe Documentation Reviewed: Yes Provider Attestation: The documentation as recorded by the mickibe, Reno Peng accurately reflects the service I personally performed and the decisions made by me, Dr. Dangelo Cottrell MD Status of Scribe Document: Viewed
[2018-06-02 18:23] LABS: Troponin I 0.01 ng/mL (<0.04)
[2018-06-02 19:05] VITALS: BP 0/0
== END 2018-06-02 19:10 | disposition home or self-care (01) ==
LOC: ED 16:39
DX: R07.89 Other chest pain (principal); R06.02 Shortness of breath; I10 Essential (primary) hypertension; K70.30 Alcoholic cirrhosis of liver without ascites; F17.210 Nicotine dependence, cigarettes, uncomplicated
CPT/HCPCS: 36415; 80320; 84484; 93005; 99282; G0480

== ENCOUNTER 2018-06-25 18:59 | Observation (INO) | payer MEDICARE ==
[2018-06-25] MEDS ORDERED: NS 0.9% 1000 ML** 1,000 ML IV ONE ×3 (19:32→21:21)
[2018-06-25] MEDS ORDERED: Thiamine IV* 100 MG, Folic Acid IV* 1 MG, Multiple Vitamin IV ADULT* 10 ML in NS 0.9% 1... IV ONE (19:33)
[2018-06-25] MEDS ORDERED: cloNIDine TAB* 0.1 MG PO ONE (19:37)
[2018-06-25 19:54] LABS: Hematocrit 34 % (36-46); Hemoglobin 11.9 g/dL (14.0-18.0); Mean Corpuscular HGB Conc 35 g/dL (31-36); Mean Corpuscular Hemoglobin 34 pg (27-31); Mean Corpuscular Volume 96 fL (80-94); Red Blood Count 3.51 10^6 /uL (4.18-5.48); Red Cell Distribution Width 14 % (10.5-15); White Blood Count 10.4 10^3/uL (3.5-10.8)
[2018-06-25 19:55] LABS: INR 0.9 (0.77-1.02)
[2018-06-25 20:10] LABS: ALT 121 U/L (7-52); Albumin 2.6 g/dL (3.2-5.2); Albumin/Globulin Ratio 1.2 (1-3); Alkaline Phosphatase 898 U/L (34-104); BUN/Creatinine Ratio 10.1 (8-20); Blood Urea Nitrogen 11 mg/dL (6-24); CO2 Carbon Dioxide 21 mmol/L (22-32); Calcium 7.8 mg/dL (8.6-10.3); Chloride 88 mmol/L (101-111); EGFR Non-African American 70.2 (>60); Globulin 2.2 g/dL (2-4); Glucose 88 mg/dL (70-100); Magnesium 1.7 mg/dL (1.9-2.7); Total Protein 4.8 g/dL (6.4-8.9)
[2018-06-25 20:13] LABS: Sodium 118 mmol/L (135-145)
[2018-06-25 20:14] LABS: Troponin I 0.05 ng/mL (<0.04)
[2018-06-25 20:27] LABS: Anion Gap 9 mmol/L (2-11)
[2018-06-25 20:28] LABS: Mean Platelet Volume 8.1 fL (7.4-10.4); Platelet Count 83 10^3/uL (150-450)
[2018-06-25 20:30] LABS: TSH (Thyroid Stimulating Horm) 2.32 mcIU/mL (0.34-5.60)
[2018-06-25 20:40] LABS: Immature Granulocytes 3 % (0-9); Lymphocytes % 37 %; Monocytes % 5 %; Neutrophil % 55 %
[2018-06-25 21:13] LABS: Phosphorus 1.5 mg/dL (2.5-5.0)
[2018-06-25 21:53] LABS: Urine Appearance Clear; Urine Bilirubin Negative (Negative); Urine Blood Negative (Negative); Urine Color Yellow; Urine Glucose Negative (Negative); Urine Ketones Negative (Negative); Urine Nitrite Negative (Negative); Urine Protein Negative (Negative); Urine Specific Gravity 1.003 (1.010-1.030); Urine Urobilinogen Negative (Negative)
[2018-06-25 23:01] LABS: CO2 Carbon Dioxide 20 mmol/L (22-32); Chloride 93 mmol/L (101-111); Sodium 122 mmol/L (135-145)
[2018-06-25 23:04] LABS: Anion Gap 9 mmol/L (2-11)
[2018-06-25 23:06] LABS: Blood Urea Nitrogen 9 mg/dL (6-24); EGFR African American 93.9 (>60); EGFR Non-African American 77.6 (>60); Glucose 95 mg/dL (70-100)
[2018-06-25 23:16] LABS: Troponin I 0.06 ng/mL (<0.04)
--- NOTE | 2018-06-26 00:30 | ED ---
Hypertension - HPI Summary HPI Summary: Patient with history of chronic EtOH and hypertension comes to ED by EMS with complaint of elevated blood pressure up to 240/140 per EMS, several recent falls , intermittent SOB, intermittent CP, intermittent SHAW, intermittent nausea. SOB with exertion. Intermittent random onset CP is diffuse over chest and mild. No active SOB or CP here in the ED. Patient states 6 beers consumed today, states usual 18 beers a day. Patient states he had a fall 2 days ago where he hit his head, presents with ecchymosis below right eye complaining of intermittent headache and dizziness. Denies vision change, fever, cough, sore throat, neck stiffness, unilateral weakness, V/D, abdominal pain, change in urine, change in BM. Medical history is EtOH, HTN, cirrhosis. Patient lives by himself. Multiple visits to this ED for chest pain and shortness of breath. Patient states he is compliant with hypertension medications. - History of Current Complaint Chief Complaint: EDHypertension Stated Complaint: DIZZINESS PER EMS Time Seen by Provider: 06/25/18 19:15 Hx Obtained From: Patient Onset/Duration: Started Days Ago Timing: Intermittent Aggravating Factor(s): Nothing Alleviating Factor(s): Nothing Associated Signs & Symptoms: Chest Pain, Headaches, Dizziness, SOB - Risk Factors Cardiac Risk Factors: Hypertension, Smoking - Allergies/Home Medications Allergies/Adverse Reactions: Allergies Allergy/AdvReac Type Severity Reaction Status Date / Time No Known Allergies Allergy Verified 06/02/18 16:46 Home Medications: Home Medications Thiamine TAB* [Vitamin B-1 TAB*] 100 mg PO DAILY 06/25/18 [History Confirmed ] PMH/Surg Hx/FS Hx/Imm Hx Endocrine/Hematology History: Denies: Hx Anticoagulant Therapy Cardiovascular History: Reports: Hx Hypertension - HIGH NOW, TYPICALLY NORMAL. 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, Hx Hiatal Hernia History: Denies: Hx Dialysis Sensory History: Denies: Hx Contacts or Glasses, Hx Eye Prosthesis, Hx Hearing Aid Opthamlomology History: Denies: Hx Contacts or Glasses, Hx Eye Prosthesis Neurological History: Denies: Hx Developmental Delay Psychiatric History: Reports: Hx Anxiety, Hx Depression, Hx Substance Abuse - EtOH Denies: Hx Attention Deficit Hyperactivity Disorder, Hx Autism, Hx Eating Disorder, Hx Panic Disorder, Hx Post Traumatic Stress Disorder, Hx Inpatient Treatment, Hx Community Mental Health Tx, Hx Schizophrenia, Hx Bipolar Disorder , Hx Suicide Attempt, Hx of Violent Episodes Against Others, Other Psychiatric Issues/Disorders - Surgical History Surgery Procedure, Year, and Place: inguinal hernia repair Infectious Disease History: No Infectious Disease History: Denies: Traveled Outside the [place] in Last 30 Days - Family History Known Family History: Positive: Hypertension, Diabetes - mother, Other - HLD Negative: Cardiac Disease - Social History Alcohol Use: Daily Alcohol Amount: 6 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, 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 ENT exam unremarkable. Lung sounds clear to auscultation bilaterally. Chest pain nonreproducible. Abdomen soft nontender. Mild edema in bilateral lower extremities. Triage Information Reviewed: Yes Vital Signs On Initial Exam: Initial Vitals Temp Pulse Resp BP Pulse Ox 99.4 F 79 16 212/102 98 06/25/18 19:03 06/25/18 19:03 06/25/18 19:03 06/25/18 19:03 06/25/18 19:03 Vital Signs Reviewed: Yes Appearance: Positive: Well-Appearing Skin: Positive: Warm Head/Face: Positive: Normal Head/Face Inspection Eyes: Positive: Normal ENT: Positive: Normal ENT inspection Neck: Positive: Supple Respiratory/Lung Sounds: Positive: Clear to Auscultation Cardiovascular: Positive: Normal Abdomen Description: Positive: Nontender Musculoskeletal: Positive: Normal Neurological: Positive: Normal Psychiatric: Positive: Normal AVPU Assessment: Alert - [place] Coma Scale Best Eye Response: 4 - Spontaneous Best Motor Response: 6 - Obeys Commands Best Verbal Response: 5 - Oriented Coma Scale Total: 15 Diagnostics - Vital Signs Vital Signs Temp Pulse Resp BP Pulse Ox 06/26/18 00:12 66 19 156/81 97 06/26/18 00:00 86 27 95 06/25/18 23:36 62 19 186/85 96 06/25/18 23:06 61 19 187/96 97 06/25/18 23:00 76 15 98 06/25/18 22:39 61 17 164/91 98 06/25/18 22:06 62 16 196/91 98 06/25/18 22:00 69 15 99 06/25/18 21:59 98 06/25/18 21:50 64 17 180/91 97 06/25/18 21:06 66 19 182/93 98 06/25/18 21:00 65 19 97 06/25/18 20:37 64 18 179/97 99 06/25/18 20:04 69 19 182/106 98 06/25/18 20:02 70 21 99 06/25/18 19:22 72 19 201/105 98 06/25/18 19:03 99.4 F 79 16 212/102 98 - Laboratory Lab Results: Lab Results 06/25/18 06/25/18 06/25/18 Range/Units 19:39 19:39 19:39 WBC 10.4 (3.5-10.8) 10^3/uL RBC 3.51 L (4.18-5.48) 10^6 /uL Hgb 11.9 L (14.0-18.0) g/dL Hct 34 L (36-46) % MCV 96 H (80-94) fL MCH 34 H (27-31) pg MCHC 35 (31-36) g/dL RDW 14 (10.5-15) % Plt Count 83 L D (150-450) 10^3/uL MPV 8.1 (7.4-10.4) fL Neut % (Auto) Not Reportable Lymph % (Auto) Not Reportable Deuel % (Auto) Not Reportable Eos % (Auto) Not Reportable Baso % (Auto) Not Reportable Absolute Neuts (auto) Not Reportable Absolute Lymphs (auto) Not Reportable Absolute Monos (auto) Not Reportable Absolute Eos (auto) Not Reportable Absolute Basos (auto) Not Reportable Absolute Nucleated RBC Not Reportable Immature Gran % 3 (0-9) % Neutrophils % 55 % Band Neutrophils % 3 (0-8) % Lymphocytes % 37 % Monocytes % 5 % Nucleated RBC % Not Reportable Abs Neuts (Manual) 6.0 (1.5-7.7) 10^3/ul Abs Lymphs (Manual) 3.9 (1.0-4.8) 10^3/ul Abs Monocytes (Manual) 0.5 (0-0.8) 10^3/ul Smudge Cells Present Normal RBC Morphology Not Reportable Anisocytosis 2+ Hem Pathologist Commnt Pending INR (Anticoag Therapy) 0.90 (0.77-1.02) Sodium 118 L* (135-145) mmol/L Potassium TNP Chloride 88 L (101-111) mmol/L Carbon Dioxide 21 L (22-32) mmol/L Anion Gap 9 (2-11) mmol/L BUN 11 (6-24) mg/dL Creatinine 1.09 (0.67-1.17) mg/dL Est GFR ( Amer) 85.0 (>60) Est GFR (Non-Af Amer) 70.2 (>60) BUN/Creatinine Ratio 10.1 (8-20) Glucose 88 (70-100) mg/dL Serum Osmolality (275-295) mOsm/kg Lactic Acid (0.5-2.0) mmol/L Calcium 7.8 L (8.6-10.3) mg/dL Phosphorus 1.5 L (2.5-5.0) mg/dL Magnesium 1.7 L (1.9-2.7) mg/dL Total Bilirubin 2.90 H (0.2-1.0) mg/dL GGT (9-64.0) U/L AST TNP ALT 121 H (7-52) U/L Alkaline Phosphatase 898 H (34-104) U/L Troponin I 0.05 H* (<0.04) ng/mL B-Natriuretic Peptide (<=100) pg/mL Total Protein 4.8 L (6.4-8.9) g/dL Albumin 2.6 L (3.2-5.2) g/dL Globulin 2.2 (2-4) g/dL Albumin/Globulin Ratio 1.2 (1-3) TSH 2.32 (0.34-5.60) mcIU/mL Urine Color Urine Appearance Urine pH (5-9) Ur Specific Ger[place] (1.010-1.030) Urine Protein (Negative) Urine Ketones (Negative) Urine Blood (Negative) Urine Nitrate (Negative) Urine Bilirubin (Negative) Urine Urobilinogen (Negative) Ur Leukocyte Esterase (Negative) Urine Glucose (Negative) Serum Alcohol (<10) mg/dL 06/25/18 06/25/18 06/25/18 Range/Units 19:39 19:39 19:43 WBC (3.5-10.8) 10^3/uL RBC (4.18-5.48) 10^6 /uL Hgb (14.0-18.0) g/dL Hct (36-46) % MCV (80-94) fL MCH (27-31) pg MCHC (31-36) g/dL RDW (10.5-15) % Plt Count (150-450) 10^3/uL MPV (7.4-10.4) fL Neut % (Auto) Lymph % (Auto) Deuel % (Auto) Eos % (Auto) Baso % (Auto) Absolute Neuts (auto) Absolute Lymphs (auto) Absolute Monos (auto) Absolute Eos (auto) Absolute Basos (auto) Absolute Nucleated RBC Immature Gran % (0-9) % Neutrophils % % Band Neutrophils % (0-8) % Lymphocytes % % Monocytes % % Nucleated RBC % Abs Neuts (Manual) (1.5-7.7) 10^3/ul Abs Lymphs (Manual) (1.0-4.8) 10^3/ul Abs Monocytes (Manual) (0-0.8) 10^3/ul Smudge Cells Normal RBC Morphology Anisocytosis Hem Pathologist Commnt INR (Anticoag Therapy) (0.77-1.02) Sodium (135-145) mmol/L Potassium Chloride (101-111) mmol/L Carbon Dioxide (22-32) mmol/L Anion Gap (2-11) mmol/L BUN (6-24) mg/dL Creatinine (0.67-1.17) mg/dL Est GFR ( Amer) (>60) Est GFR (Non-Af Amer) (>60) BUN/Creatinine Ratio (8-20) Glucose (70-100) mg/dL Serum Osmolality (275-295) mOsm/kg Lactic Acid 3.4 H* (0.5-2.0) mmol/L Calcium (8.6-10.3) mg/dL Phosphorus (2.5-5.0) mg/dL Magnesium (1.9-2.7) mg/dL Total Bilirubin (0.2-1.0) mg/dL GGT (9-64.0) U/L AST ALT (7-52) U/L Alkaline Phosphatase (34-104) U/L Troponin I (<0.04) ng/mL B-Natriuretic Peptide 237 H (<=100) pg/mL Total Protein (6.4-8.9) g/dL Albumin (3.2-5.2) g/dL Globulin (2-4) g/dL Albumin/Globulin Ratio (1-3) TSH (0.34-5.60) mcIU/mL Urine Color Urine Appearance Urine pH (5-9) Ur Specific Ger[place] (1.010-1.030) Urine Protein (Negative) Urine Ketones (Negative) Urine Blood (Negative) Urine Nitrate (Negative) Urine Bilirubin (Negative) Urine Urobilinogen (Negative) Ur Leukocyte Esterase (Negative) Urine Glucose (Negative) Serum Alcohol 94 H (<10) mg/dL 06/25/18 06/25/18 06/25/18 Range/Units 19:43 21:41 22:35 WBC (3.5-10.8) 10^3/uL RBC (4.18-5.48) 10^6 /uL Hgb (14.0-18.0) g/dL Hct (36-46) % MCV (80-94) fL MCH (27-31) pg MCHC (31-36) g/dL RDW (10.5-15) % Plt Count (150-450) 10^3/uL MPV (7.4-10.4) fL Neut % (Auto) Lymph % (Auto) Deuel % (Auto) Eos % (Auto) Baso % (Auto) Absolute Neuts (auto) Absolute Lymphs (auto) Absolute Monos (auto) Absolute Eos (auto) Absolute Basos (auto) Absolute Nucleated RBC Immature Gran % (0-9) % Neutrophils % % Band Neutrophils % (0-8) % Lymphocytes % % Monocytes % % Nucleated RBC % Abs Neuts (Manual) (1.5-7.7) 10^3/ul Abs Lymphs (Manual) (1.0-4.8) 10^3/ul Abs Monocytes (Manual) (0-0.8) 10^3/ul Smudge Cells Normal RBC Morphology Anisocytosis Hem Pathologist Commnt INR (Anticoag Therapy) (0.77-1.02) Sodium 122 L (135-145) mmol/L Potassium TNP Chloride 93 L (101-111) mmol/L Carbon Dioxide 20 L (22-32) mmol/L Anion Gap 9 (2-11) mmol/L BUN 9 (6-24) mg/dL Creatinine 1.00 (0.67-1.17) mg/dL Est GFR ( Amer) 93.9 (>60) Est GFR (Non-Af Amer) 77.6 (>60) BUN/Creatinine Ratio 9.0 (8-20) Glucose 95 (70-100) mg/dL Serum Osmolality 283 (275-295) mOsm/kg Lactic Acid (0.5-2.0) mmol/L Calcium 7.0 L (8.6-10.3) mg/dL Phosphorus (2.5-5.0) mg/dL Magnesium (1.9-2.7) mg/dL Total Bilirubin (0.2-1.0) mg/dL GGT 2320 H (9-64.0) U/L AST TNP ALT (7-52) U/L Alkaline Phosphatase (34-104) U/L Troponin I 0.06 H* (<0.04) ng/mL B-Natriuretic Peptide (<=100) pg/mL Total Protein (6.4-8.9) g/dL Albumin (3.2-5.2) g/dL Globulin (2-4) g/dL Albumin/Globulin Ratio (1-3) TSH (0.34-5.60) mcIU/mL Urine Color Yellow Urine Appearance Clear Urine pH 6.0 (5-9) Ur Specific Ger[place] 1.003 L (1.010-1.030) Urine Protein Negative (Negative) Urine Ketones Negative (Negative) Urine Blood Negative (Negative) Urine Nitrate Negative (Negative) Urine Bilirubin Negative (Negative) Urine Urobilinogen Negative (Negative) Ur Leukocyte Esterase Negative (Negative) Urine Glucose Negative (Negative) Serum Alcohol (<10) mg/dL 06/25/18 06/25/18 06/25/18 Range/Units 22:35 22:36 23:18 WBC (3.5-10.8) 10^3/uL RBC (4.18-5.48) 10^6 /uL Hgb (14.0-18.0) g/dL Hct (36-46) % MCV (80-94) fL MCH (27-31) pg MCHC (31-36) g/dL RDW (10.5-15) % Plt Count (150-450) 10^3/uL MPV (7.4-10.4) fL Neut % (Auto) Lymph % (Auto) Deuel % (Auto) Eos % (Auto) Baso % (Auto) Absolute Neuts (auto) Absolute Lymphs (auto) Absolute Monos (auto) Absolute Eos (auto) Absolute Basos (auto) Absolute Nucleated RBC Immature Gran % (0-9) % Neutrophils % % Band Neutrophils % (0-8) % Lymphocytes % % Monocytes % % Nucleated RBC % Abs Neuts (Manual) (1.5-7.7) 10^3/ul Abs Lymphs (Manual) (1.0-4.8) 10^3/ul Abs Monocytes (Manual) (0-0.8) 10^3/ul Smudge Cells Normal RBC Morphology Anisocytosis Hem Pathologist Commnt INR (Anticoag Therapy) (0.77-1.02) Sodium (135-145) mmol/L Potassium TNP TNP Chloride (101-111) mmol/L Carbon Dioxide (22-32) mmol/L Anion Gap (2-11) mmol/L BUN (6-24) mg/dL Creatinine (0.67-1.17) mg/dL Est GFR ( Amer) (>60) Est GFR (Non-Af Amer) (>60) BUN/Creatinine Ratio (8-20) Glucose (70-100) mg/dL Serum Osmolality (275-295) mOsm/kg Lactic Acid 1.9 (0.5-2.0) mmol/L Calcium (8.6-10.3) mg/dL Phosphorus (2.5-5.0) mg/dL Magnesium (1.9-2.7) mg/dL Total Bilirubin (0.2-1.0) mg/dL GGT (9-64.0) U/L AST TNP ALT (7-52) U/L Alkaline Phosphatase (34-104) U/L Troponin I (<0.04) ng/mL B-Natriuretic Peptide (<=100) pg/mL Total Protein (6.4-8.9) g/dL Albumin (3.2-5.2) g/dL Globulin (2-4) g/dL Albumin/Globulin Ratio (1-3) TSH (0.34-5.60) mcIU/mL Urine Color Urine Appearance Urine pH (5-9) Ur Specific Ger[place] (1.010-1.030) Urine Protein (Negative) Urine Ketones (Negative) Urine Blood (Negative) Urine Nitrate (Negative) Urine Bilirubin (Negative) Urine Urobilinogen (Negative) Ur Leukocyte Esterase (Negative) Urine Glucose (Negative) Serum Alcohol (<10) mg/dL Result Diagrams: 06/25/18 19:39 06/25/18 23:18 Lab Statement: Any lab studies that have been ordered have been reviewed, and results considered in the medical decision making process. Hypertension Course/Dx - Course Course Of Treatment: Patient with history of chronic EtOH and hypertension comes to ED by EMS with complaint of elevated blood pressure up to 240/140 per EMS, several recent falls, intermittent SOB, intermittent CP, intermittent SHAW, intermittent nausea. SOB with exertion. Intermittent random onset CP is diffuse over chest and mild. No active SOB or CP here in the ED. Patient states 6 beers consumed today, states usual 18 beers a day. Patient states he had a fall 2 days ago where he hit his head, presents with ecchymosis below right eye complaining of intermittent headache and dizziness. Denies vision change, fever, cough, sore throat, neck stiffness, unilateral weakness, V/D, abdominal pain, change in urine, change in BM. Medical history is EtOH, HTN, cirrhosis. Patient lives by himself. Multiple visits to this ED for chest pain and shortness of breath. Patient states he is compliant with hypertension medications. Physical exam:Patient alert and oriented, calm and cooperative. No evidence of diaphoresis, hallucinations, tremors, anxiety. No active N/V. ENT exam unremarkable. Lung sounds clear to auscultation bilaterally. Chest pain nonreproducible. Abdomen soft nontender. Mild edema in bilateral lower extremities. Vital signs within normal limits. Hgb 11.9 which is patient baseline. Sodium 118 which is decreased from patient baseline. Lactic 3.4. Bilirubin 2.9 which is elevated from patient's baseline. Alkaline phosphatase 898 which is elevated from patient's baseline. Troponin 0.05 which is elevated from patient baseline. BNP 237 which is patient baseline. Blood pressure improved to within normal limits after Lopressor 5 mg from EMS and clonidine 0.1 by mouth here in ED. Chest x-ray unremarkable. EKG sinus rhythm. Initial troponin 0.05. CT brain unremarkable. Ultrasound liver positive for fatty liver and hepatomegaly. No gallstones. EtOH 94. No evidence of withdrawal symptoms during stay here in the ED. Discussed patient with nephrology visual communications instructor Dr. Pereira who recommended admission. Patient admitted for hyponatremia, elevated alkaline phosphatase, elevated troponin. - Diagnoses Provider Diagnoses: Hyponatremia, Elevated alkaline phosphatase level, Elevated troponin Discharge - Sign-Out/Discharge Documenting (check all that apply): Patient Departure Patient Received Moderate/Deep Sedation with Procedure: No - Discharge Plan Condition: Good Disposition: ADMITTED TO [facility] - Billing Disposition and Condition Condition: GOOD Disposition: Admitted to [facility]
[2018-06-26] MEDS ORDERED: NS 0.9% 1000 ML** 1,000 ML IV SCH ×2 (01:00→01:50)
[2018-06-26] MEDS ORDERED: Albuterol HFA INHALER* 8 gm MDI INH PRN (01:07)
[2018-06-26] MEDS ORDERED: Morphine INJ* 2 MG/ML 1 ML SYRINGE (TWO MG - NEW SYRINGE VERSION) IV PRN (01:08)
[2018-06-26] MEDS ORDERED: Nicotine Inhaler* 10 MG AMP INH PRN (01:10)
[2018-06-26] MEDS ORDERED: Ondansetron INJ* 2 MG/ML VIAL IV PRN (01:10)
[2018-06-26] MEDS ORDERED: Calcium Gluconate INJ* 1 GM in NS 0.9% 50 ML* 50 ML IVPB ONE (01:48)
[2018-06-26] MEDS ORDERED: Calcium Acetate CAP* 667 MG PO ONE (01:49)
[2018-06-26] MEDS ORDERED: LORazepam INJ* 2 MG/ML 1 ML VIAL IV PUSH SCH (02:00)
[2018-06-26] MEDS ORDERED: Mouth Piece, Nicotine* 1 EACH CARTRIDGE INH ONE (02:00)
[2018-06-26 02:07] LABS: Troponin I 0.05 ng/mL (<0.04)
[2018-06-26] MEDS ORDERED: hydrALAZINE IV* 20 MG/ML VIAL IV SLOW PU PRN (02:08)
[2018-06-26] MEDS: amLODIPine TAB* 5 MG PO SCH ×2 (02:20→09:22)
[2018-06-26] MEDS: Heparin VIAL(*) 5000 UNITS/ML VIAL (FIVE THOUSAND) SUBCUT SCH ×2 (05:25→14:33)
--- NOTE | 2018-06-26 05:43 | HP ---
HISTORY AND PHYSICAL: DATE OF ADMISSION: 06/26/18 PRIMARY CARE PROVIDER: None. SUMMER SESSIONS DIRECTOR: Father, Fidencio Person. CODE STATUS: Full. SOURCE OF INFORMATION: HPI is obtained from the patient and review of chart. The patient is a fair historian. CHIEF COMPLAINT: Dizziness. 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 The patient reports he has been drinking heavily for the last few days, largely out of boredom and this afternoon felt dizzy and out of it. Reports having fallen, unsure if he hit his head, did not lose consciousness, and because he has not had much nutrition and continues to feel out of it, he called EMS to be evaluated. He denies any suicidal ideation. On further review of systems, negative for chest pain, shortness of breath, nausea , vomiting, diarrhea, constipation, hematemesis, melena, or gale abdominal pain. He does state that he has had increase in swelling in his bilateral lower extremities for the last 2 to 3 days as well. The patient's last drink was today. He drinks roughly 18 to 20 beers per day and has had about 8 beers so far. He denies any history of delirium tremens or seizures. EMERGENCY ROOM COURSE: Blood pressure is 196/91, heart rate 68, respiratory rate 15, satting 99% on room air. Labs are notable for a macrocytic anemia and low platelets to 83. Sodium 118. Lactic acid 3.4. Elevated liver enzymes notably with an alk phos of 898, an ALT of 121, and an AST that is unable to be calculated, a GGT of 2320. Troponin is elevated at 0.05. Alcohol level is 94. The patient received 2.5 L of normal saline, clonidine, and metoprolol 5 that was given by EMS and the hospitalist team was asked to evaluate the patient for further treatment and evaluation. PAST MEDICAL HISTORY: 1. Alcohol use disorder. 2. Tobacco use. 3. Depression. 4. History of liver fibrosis versus cirrhosis. 5. Hypertension. 6. History of fall. PAST SURGICAL HISTORY: Hernia repair. MEDICATIONS: 1. Albuterol 2 puffs inhaled q.4 hours. 2. Folic acid 1 mg p.o. daily. 3. Multivitamin 1 tab p.o. daily. 4. Thiamine 100 mg p.o. daily. 5. Amlodipine 10 mg p.o. daily. 6. Clonidine 0.2 mg p.o. t.i.d. 7. Famotidine 20 mg p.o. b.i.d. 8. Magnesium oxide 400 mg p.o. b.i.d. The patient reports he was not taking any of his home medications. ALLERGIES: No known drug allergies. FAMILY HISTORY: Father with hypertension. Mother with hypertension and diabetes. SOCIAL HISTORY: Tobacco: He smokes 2 packs per day. He has a [id number] history. Alcohol: He is a current everyday drinker, current 18 to 20 beers per day. Last drink was today. Last documented time of sobriety was 5 years ago and roughly only for 3 to 4 months. He has never been to inpatient rehabilitation. Illicits: Denies, lifetime nonuser. 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 REVIEW OF SYSTEMS: Constitutional: Negative for fevers, chills, or malaise. Eyes: Negative for change in vision. Head: Does endorse headache as he has fallen a few times in the last few days. ENT: Negative for sore throat. Cardiovascular: Negative for chest pain, palpitations, orthopnea. Respiratory : Negative for shortness of breath. Positive for wheezing. Negative for cough or pleuritic chest pain. GI: Negative for nausea, vomiting, diarrhea, or gale abdominal pain. : Negative for dysuria or hematuria. Musculoskeletal : Negative for myalgias, arthralgias, or weakness. Skin: Negative for rashes or lesions. Neurologic: Positive for generalized dizziness, but negative for focal weakness or numbness. Psychiatric: Positive for depression. Negative for SI or HI and negative for anxiety. Endocrine: Negative for polyuria, polydipsia. Heme: Negative for easy bruising, bleeding, or lymphadenopathy. PHYSICAL EXAMINATION GENERAL APPEARANCE: This is a chronically unwell-appearing man, in no acute distress, lying on stretcher with some slowness to respond, but appropriately oriented. He has an ecchymosis around his right periorbital along with scabbing on right eyebrow. VITAL SIGNS: At the time of physical exam, blood pressure 155/82, heart rate 63 , respiratory rate 16, oxygen saturation 96% on room air. HEENT: His pupils are equal and reactive. His extraocular muscles are intact. His sclerae are ena with maybe possibly slight jaundice, but very faint, largely ena. Oropharynx is with dry mucous membranes and no other lesions. NECK: Supple with no supraclavicular or cervical lymphadenopathy. RESPIRATORY: With good air movement in bilateral lungs, but with expiratory wheezing in lower lung bases. CARDIAC: Regular rate and rhythm with no murmurs, rubs, or gallops. GI: Belly is nondistended. It is soft with mild tenderness to palpation in the epigastric area. He has hepatomegaly measured to 10 cm and firm liver edge. No palpable splenomegaly. Normoactive bowel sounds. No fluid waves. No spider angiomata, no caput medusa, and no other stigmata of liver disease on belly exam. SKIN: Generally ena in color, but with multiple scabs and scars, but no acute rashes or ulcerations. MUSCULOSKELETAL: He moves all 4 extremities spontaneously. EXTREMITIES: He has 2+ pitting edema to bilateral lower extremities to park. Nontender. He has 2+ palpable pulses in bilateral lower extremities. NEURO: He is A and O x3, though slow to answer with poor insight. His cranial nerves II through XII are intact. He has no asterixis. He has no focal neurologic deficits. DIAGNOSTIC STUDIES/LAB DATA: CBC with white blood cell count of 10.4, hemoglobin of 11.9, hematocrit of 34, platelets of 83. INR is 0.9. Chemistry shows sodium of 118, potassium hemolyzed, chloride 88, carbon dioxide 21, anion gap 9, BUN 11, creatinine 1.09, glucose 88, lactic acid 3.4, calcium 7.8, phosphorus 1.5, magnesium 1.7. Total bilirubin at 2.9, AST unable to be calculated, GGT at 2320, ALT at 121, and alkaline phosphatase at 898. Troponin is at 0.05. Total protein is at 4.8 and albumin is at 2.6. TSH is at 2.23. Urine is done which is negative for any pathology. Toxicology shows a serum alcohol level of 94 on presentation. Imaging is done that includes a brain CT which is negative for acute intracranial pathology, but does show age-related atrophy and mild small-vessel ischemic disease as well as a chronic right frontal lobe ELIOT territorial infarct. A chest x-ray was done which showed no acute cardiopulmonary disease with hyperinflated lungs. No cardiomegaly. EKG was done which shows sinus tachycardia with no evidence of acute ischemia, possibly isolated minimal ST elevations in V2 and V3. Gallbladder ultrasound was performed which shows mildly thickened wall of gallbladder measuring up to 0.4 cm, mild pericholecystic fluid. No gallstones or sonographic Burr sign. CBD measures 0.2 cm. Portal venous without hypertension, with normal hepatopetal portal vein flow. Liver is diffusely hyperechoic with reduced sonographic penetration with no focal liver lesions, enlarged, measuring 21 cm. Overall impression is underlying hepatic dysfunction and hepatic steatosis associated hepatomegaly. Imaging, EKG, and labs were reviewed by myself. 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 In summary all concerning for advancing liver disease, development of cirrhosis in setting of continued alcohol abuse. 1. Hyponatremia. I suspect this is hypovolemic hyponatremia (beer potomania). We will order for serum OSM, urine sodium and OSM, and hydrate gently and continue to monitor. 2. Alcohol use disorder. We will place him on WAM protocol with lorazepam, thiamine, folate. Social Work consult and gale discussion with the patient about at least considering inpatient rehabilitation. 3. Elevated liver enzymes. Imaging consistent with hepatomegaly with no obvious ductal block. INR is not elevated, and patient is not jaundiced which is less concerning for alcoholic hepatitis. The quite elevated GGT can be from drinking alone, although clinically, his picture is more concerning for developing cirrhosis. We will send hepatitis panel, Fibrosure, and continue to monitor synthetic function, his APRI score is 24. 4. Elevated troponins. The patient is without active chest pain and EKG is without any signs of active ischemia. I suspect this is demand or poor renal clearance and we will continue to monitor. I have ordered an echocardiogram in the setting of new pedal edema. 5. Pedal edema. Apparently, per the patient, this is new. It is possibly related to low albumin state in the setting of cirrhosis of liver versus fibrosis of liver, although we will order echocardiogram to rule out cardiac component. 6. Hypertension. We will continue home clonidine and restart home amlodipine; he is noncompliant with his medications at home and will continue to monitor. 7. Lactic acidosis. We will hydrate and continue to monitor. This may be in the setting of poor organ perfusion or alcohol use disorder alone. 8. Thrombocytopenia. This is most likely related to worsening liver dysfunction in the setting of ongoing alcohol use disorder. 9. DVT. We will place the patient on subcu heparin. 10. Depression. We will place a Social Work consult. 11. FEN. We will place the patient on a unrestricted diet. 12. Code status. Full. DISPOSITION: The patient is stable for admission to [address] [place] [address] without need of tele. TIME SPENT: Forty-five minutes were spent on the planning of this admission with over half of that spent directly at the bedside with the patient, providing direct patient care. He is agreeable for admission and has no further questions. [id number]/[facility]PS #: [id number] MTDD
[2018-06-26 08:20] LABS: Hepatitis B Surface Antigen Nonreactive (Nonreactive)
[2018-06-26 08:44] LABS: Hepatitis C Antibody Nonreactive (Nonreactive)
[2018-06-26] MEDS ORDERED: Magnesium Sulfate 2 GM IV* 2 GM/50 ML BAG IVPB ONE (09:15)
[2018-06-26] MEDS ORDERED: Potassium Phosphate IV* 10 MMOLE in NS 0.9% 250 ML* 250 ML IVPB ONE (09:16)
[2018-06-26] MEDS: Famotidine TAB* 20 MG PO SCH ×2 (09:22→20:47)
[2018-06-26] MEDS: Magnesium Oxide TAB* 400 MG PO SCH ×2 (09:22→20:47)
[2018-06-26] MEDS: cloNIDine TAB* 0.1 MG PO SCH ×3 (09:22→20:46)
[2018-06-26] MEDS: Folic Acid TAB* 1 MG PO SCH (09:22)
[2018-06-26] MEDS: Thiamine TAB* 100 MG TAB PO SCH (09:22)
[2018-06-26] MEDS: Multivitamins/Minerals TAB PO SCH (09:22)
[2018-06-26 17:33] LABS: Albumin 2.1 g/dL (3.2-5.2); Albumin/Globulin Ratio 1.1 (1-3); BUN/Creatinine Ratio 6.9 (8-20); Calcium 7.4 mg/dL (8.6-10.3); EGFR African American 79.1 (>60); EGFR Non-African American 65.4 (>60); Indirect Bilirubin 0.7 mg/dL (0.3-1.0); Magnesium 1.9 mg/dL (1.9-2.7); Phosphorus 2.4 mg/dL (2.5-5.0); Potassium 3.1 mmol/L (3.5-5.0); Total Bilirubin 2.1 mg/dL (0.2-1.0); Total Protein 4.1 g/dL (6.4-8.9)
--- NOTE | 2018-06-26 18:38 | ECHO ---
Patient: [facility] Rec#: [id number] : 1965 Date: 06/26/2018 Age: 53y Height: 173 cm / 68.1 in Weight: 77 kg / 169.7 lbs Sex: M BSA: 1.91 Room#: [facility] Admit Date#: 06/26/2018 Type: Inpatient Referring: KAVON FRANKEL L Reading: Laurence Torres MD Pediatric Oncologist: Magdalena Gallagher RDCS,RDMS Transthoracic Echocardiogram Indication: EDEMA BP: 157/70 HR: 70 Rhythm: NSR Findings History: HTN, ETOH, smoker, liver cirrhosis Technical Comments: The study is technically limited due to the patient's smoking history. Left Ventricle: The left ventricular chamber size is normal. Mild concentric left ventricular hypertrophy is observed. Global left ventricular wall motion and contractility are within normal limits. The estimated ejection fraction is 55-60%. Abnormal left ventricular diastolic function is observed. Left Atrium: The left atrial chamber size is normal. Right Ventricle: The right ventricular chamber size and systolic function are within normal limits. Right Atrium: The right atrial cavity size is normal. Aortic Valve: There is no evidence of aortic valve thickening. There is no evidence of aortic regurgitation. There is no evidence of aortic stenosis. Mitral Valve: The mitral valve leaflets appear normal. There is no evidence of mitral regurgitation. There is no evidence of mitral stenosis. Tricuspid Valve: The tricuspid valve leaflets are normal. There is no evidence of tricuspid valve regurgitation. Unable to estimate the right ventricular systolic pressure. Pulmonic Valve: The pulmonic valve structure is not well visualized. There is no evidence of pulmonic regurgitation. Pericardium: There is no significant pericardial effusion. Aorta: The ascending aorta is not well visualized. The aortic arch is not well visualized. The aortic root is normal in size. Pulmonary Artery: The main pulmonary artery is not well visualized. Venous: The inferior vena cava appears normal in size. There is a greater than 50% respiratory change in the inferior vena cava dimension. Conclusions Mild concentric left ventricular hypertrophy is observed. Global left ventricular wall motion and contractility are within normal limits. The estimated ejection fraction is 55-60%. The right ventricular chamber size and systolic function are within normal limits. All valves appear structurally normal with normal function. Compared with prior echo of 05/28/18, EF is stable, valve functrion is stable, both echos are normal. Measurements Name Value Normal Range RVIDd (AP) 2D 2.5 cm (0.9 - 2.6) RVDdMajor (2D) 2.7 cm (2.2 - 4.4) RAd ISD 4CH 4.2 cm (3.4 - 4.9) RA (A4C)W 3.7 cm (2.9 - 4.6) IVSd (2D) 1.2 cm (0.6 - 1) LVPWd (2D) 1.2 cm (0.6 - 1) LVIDd (2D) 4.3 cm (3.6 - 5.4) LVIDs (2D) 3.3 cm - LV FS (2D) 23 % (25 - 45) Aortic Annulus 2.2 cm (1.4 - 2.6) Ao root diameter (2D) 3 cm (2.1 - 3.5) LA dimension (AP) 2D 2.7 cm (2.3 - 3.8) LAd ISD 4CH 4.5 cm (2.9 - 5.3) LA ISD 4CH W 3.6 cm (2.5 - 4.5) Name Value Normal Range LA ESV BP (A/L) index 21 ml/m2 - Name Value Normal Range MV E-wave Vmax 0.6 m/sec - MV deceleration time 209 msec - MV A-wave Vmax 0.6 m/sec - MV E:A ratio 1 ratio - LV septal e' Vmax 0.07 m/sec - LV lateral e' Vmax 0.11 m/sec - LV E:e' septal ratio 9 ratio - LV E:e' lateral ratio 5.5 ratio - Name Value Normal Range AV Vmax 1.4 m/sec - AV VTI 23 cm - AV peak gradient 8 mmHg - AV mean gradient 4 mmHg - LVOT Vmax 1 m/sec - LVOT VTI 18 cm - LVOT peak gradient 5 mmHg - LVOT mean gradient 2 mmHg - ROBERTO Vmax 0.9 m/sec - Name Value Normal Range RAP 8 mmHg - IVC diameter 1.8 cm - Name Value Normal Range PV Vmax 0.8 m/sec - PV peak gradient 2.6 mmHg -
--- NOTE | 2018-06-26 19:01 | PN ---
Hospitalist Progress Note Brief update - admitted this morning. Surprisingly hasn't required Ativan, although he did have elevated alcohol level yesterday evening, so still could exhibit signs of withdrawal later today or overnight. TTE with mild concentric LVH, otherwise normal. Likely that cirrhosis is the cause of his LE edema. Had lengthy discussion with patient about severity of liver disease and need to stop consuming alcohol. Pt reports he didn't know his liver disease was so bad, but that he enjoys drinking beer and watching TV all day and doesn't intend to change that. His biggest barrier to alcohol cessation is "I don't want to stop drinking." He understands the risks, including .
[2018-06-26] MEDS ORDERED: Potassium Chloride LIQUID* 20 MEQ PACKET PO ONE (19:30)
[2018-06-26] MEDS ORDERED: Magnesium Sulfate 1 GM IV* 1 GM/100 ML BAG IV ONE (20:00)
[2018-06-26] MEDS ORDERED: Potassium Phosphate IV* 5 MMOLE in NS 0.9% 250 ML* 250 ML IVPB ONE (21:00)
[2018-06-26] MEDS ORDERED: traZODone TAB* 50 MG TAB PO STA (22:32)
[2018-06-26] MEDS ORDERED: diPHENhydraMINE PO* 25 MG PO PRN (22:33)
[2018-06-27 06:22] LABS: INR 0.86 (0.77-1.02)
[2018-06-27 06:26] LABS: Chloride 100 mmol/L (101-111); Potassium 3.3 mmol/L (3.5-5.0); Sodium 125 mmol/L (135-145); Troponin I 0.05 ng/mL (<0.04)
[2018-06-27 06:37] LABS: Albumin 1.9 g/dL (3.2-5.2); Magnesium 1.8 mg/dL (1.9-2.7)
[2018-06-27 06:45] LABS: ALT 90 U/L (7-52); Alkaline Phosphatase 672 U/L (34-104); Anion Gap 8 mmol/L (2-11); Blood Urea Nitrogen 7 mg/dL (6-24); CO2 Carbon Dioxide 18 mmol/L (22-32); Calcium 7.2 mg/dL (8.6-10.3); EGFR African American 110.2 (>60); EGFR Non-African American 91.1 (>60); Glucose 109 mg/dL (70-100); Total Protein 3.9 g/dL (6.4-8.9)
[2018-06-27 07:06] LABS: AST 102 U/L (13-39)
[2018-06-27] MEDS: Folic Acid TAB* 1 MG PO SCH (08:41)
[2018-06-27] MEDS: Multivitamins/Minerals TAB PO SCH (08:41)
[2018-06-27] MEDS: amLODIPine TAB* 5 MG PO SCH (08:41)
[2018-06-27] MEDS: cloNIDine TAB* 0.1 MG PO SCH (08:41)
[2018-06-27] MEDS: Famotidine TAB* 20 MG PO SCH (08:41)
[2018-06-27] MEDS: Thiamine TAB* 100 MG TAB PO SCH (08:41)
[2018-06-27] MEDS: Magnesium Oxide TAB* 400 MG PO SCH (08:41)
[2018-06-27] MEDS ORDERED: Magnesium Sulfate 1 GM IV* 1 GM/100 ML BAG IV ONE (08:47)
[2018-06-27] MEDS ORDERED: Potassium Chloride LIQUID* 20 MEQ PACKET PO ONE (08:48)
[2018-06-27 12:41] VITALS: BP 131/57
--- NOTE | 2018-06-27 22:57 | DS ---
DISCHARGE SUMMARY: DATE OF ADMISSION: 06/25/18 DATE OF DISCHARGE: 06/27/18 PRIMARY CARE PHYSICIAN: None. DISPOSITION: To home. CONDITION: Improved. PRIMARY DIAGNOSIS: Alcoholic hepatitis. SECONDARY DIAGNOSES: Alcohol abuse and hypertension. DISCHARGE MEDICATIONS: 1. Gabapentin 300 mg nightly. 2. Amlodipine 10 mg daily. 3. Clonidine 0.3 mg twice a day. 4. Thiamine 100 mg daily. 5. Folic acid 1 mg daily. 6. Famotidine 20 mg twice a day. 7. Albuterol inhaler 2 puffs q.4 hours p.r.n. wheezing. HISTORY OF PRESENT ILLNESS: A 53-year-old man with alcohol use disorder, depression, history of recent admission for alcoholic hepatitis and another recent admission for hypertensive urgency and dizziness where he was treated for alcohol withdrawal. Also, has history of depression with prior psych hospitalizations after suicide attempts, who is presenting after another fall with head strike. He had been drinking heavily in the last few days largely out of boredom and this afternoon felt very dizzy, he fell and was unsure if he hit his head, although, he did not lose consciousness. He called the EMS to be evaluated. HOSPITAL COURSE: In the ER, blood pressure noted to be 196/91, with labs showing macrocytic anemia. Sodium 118, lactic acid 3.4 with elevated liver enzymes into 100s with alk phos 989 along with elevated GGT and troponin to 0.05. He was given 2.5 L of normal saline, clonidine, and metoprolol and admitted for further management. 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 While admitted to Medicine, the patient remained stable with good blood pressure control. He was put on WAM protocol but did not require any injections of IV Ativan. The patient was extensively educated on likely diagnosis of cirrhosis and severity of liver disease with need for outpatient followup with GI for followup such as variceal screening as well as diuretics. The patient states that his biggest barrier to alcohol sensation is that he does not want to quit drinking alcohol. He states that he likes the way that his life is, being able to stay at home and drink all day and watch TV. He did seem to express insight into his liver disease. He was amenable to starting on gabapentin with help to reducing alcohol intake. On day of discharge, the patient had denied headache, tremor, agitation, nausea, vomiting, abdominal pain, constipation, diarrhea. He did report some mild confusion at his baseline, but otherwise 10-point review of systems is negative. PHYSICAL EXAMINATION: Afebrile. Heart rate 60s, blood pressure 147/68, respiratory rate 12, O2 saturation 96% on room air. General: Chronically ill- appearing man, older than stated age, no acute distress, not jaundiced. A and O x3. HEENT: With ecchymosis around right orbit with scabbing over right eyebrow. Pupils equal, round, and reactive to light. Cranial nerves II through XII intact. Neck: No JVD. Lungs: Clear to auscultation bilaterally. Heart: Regular rate and rhythm. No murmurs, gallops, or rubs. Abdomen: Soft, nontender, nondistended. No evidence of ascites. Lower extremities with trace edema around ankles. DISCHARGE PLAN: According to the care team, the patient previously followed up at [facility]. He was referred back to that clinic and also referred to a GI clinic. He was encouraged to abstain from alcohol as much as possible to prevent prevent further liver disease and also to improve adherence to other medications such as his blood pressure medications. Of note, he also does seem to have a history of stroke as per imaging and management for secondary prevention of stroke was deferred to primary care physician. TIME SPENT: Approximately 60 minutes spent on discharge of this patient, more than half of which was spent with care coordination at bedside for interview and exam. [id number]/[facility] #: [id number] KARAN
[2018-06-28 09:58] LABS: ActiTest Interpretation severe activity; Alanine Aminotransferase (ALT) 109 U/L (7-55); Alpha-2-Macroglobulin, S 556 mg/dL (100 - 280); Bilirubin, Total, S 2.2 mg/dL (<=1.2); BioPredictive Serial Number 2428806; FibroTest Interpretation severe fibrosis
== END 2018-06-27 14:00 | disposition home or self-care (01) ==
LOC: ED 18:59 → INTOOBSV 06-26 01:00 → MED 06-26 01:00
PROVIDERS: ADMIT Internal Medicine; ATTEND Internal Medicine
DX: K70.10 Alcoholic hepatitis without ascites (principal); R51 Headache; R07.9 Chest pain, unspecified; E87.1 Hypo-osmolality and hyponatremia; R11.0 Nausea; R42 Dizziness and giddiness; F10.19 Alcohol abuse with unspecified alcohol-induced disorder; F32.9 Major depressive disorder, single episode, unspecified; I10 Essential (primary) hypertension; Z91.81 History of falling; R06.02 Shortness of breath; F17.210 Nicotine dependence, cigarettes, uncomplicated
CPT/HCPCS: 36415; 70450; 71045; 76705; 80048; 80053; 80074; 80076; 80320; 81003; 82172; 82247; 82977; 83010; 83605; 83690; 83735; 83880; 83883; 83930; 84100; 84443; 84460; 84484; 85025; 85060; 85610; 87641; 93005; 93306; 99284; A9270-GY; G0378; G0480; G8978-GP-CH; G8979-GP-CH; G8980-GP-CH; J0360; J0610; J1644; J3411; J3475

== ENCOUNTER 2018-06-29 19:50 | Observation (INO) | payer MEDICARE ==
[2018-06-29] MEDS ORDERED: NS 0.9% 1000 ML** 1,000 ML IV ONE (20:05)
--- NOTE | 2018-06-29 20:06 | ED ---
HPI Chest Pain - HPI Summary HPI Summary: Pt is a 53 y/o M presenting to the ED brought in by EMS for chest pain onset described as pressure that is intermittent, lasting for about 15 minutes at a time. It usually comes on when he exerts himself, and he reports associated shortness of breath. He also reports dizziness, first noticed about 2 weeks ago, that has been causing him to have numerous falls recently. He denies nausea, decreased appetite, hematuria, or blood in his stool. He reports CP, SOB, and dizziness. He also denies hx of lung or cardiac issues. He is a smoker and drinks about one 12-pack of beer a day. - History of Current Complaint Chief Complaint: EDChestPainROMI Time Seen by Provider: 06/29/18 19:57 Hx Obtained From: Patient Onset/Duration: Started Days Ago, Still Present Timing: Intermittent, Lasting Minutes Initial Severity: Moderate Current Severity: Mild Chest Pain Location: Diffuse Chest Pain Radiates: No Character: Pressure/Squeezing Aggravating Factor(s): Exertion Alleviating Factor(s): Rest Associated Signs and Symptoms: Positive: Chest Pain, Dizziness, Shortness of Breath, Other: - abrasions on bilateral arms. 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, Hx Hiatal Hernia History: Denies: Hx Dialysis Sensory History: Denies: Hx Contacts or Glasses, Hx Eye Prosthesis, Hx Hearing Aid Opthamlomology History: Denies: Hx Contacts or Glasses, Hx Eye Prosthesis Neurological History: Denies: Hx Developmental Delay Psychiatric History: Reports: Hx Anxiety, Hx Depression, Hx Substance Abuse - EtOH Denies: Hx Attention Deficit Hyperactivity Disorder, Hx Autism, Hx Eating Disorder, Hx Panic Disorder, Hx Post Traumatic Stress Disorder, Hx Inpatient Treatment, Hx Community Mental Health Tx, Hx Schizophrenia, Hx Bipolar Disorder , Hx Suicide Attempt, Hx of Violent Episodes Against Others, Other Psychiatric Issues/Disorders - Surgical History Surgery Procedure, Year, and Place: inguinal hernia repair - Family History Known Family History: Positive: Hypertension, Diabetes - mother, Other - HLD Negative: Cardiac Disease - Social History 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 Lives: Alone Alcohol Use: Daily Alcohol Amount: ~one 12-pack of beer/day Hx Substance Use: No Substance Use Type: Reports: None Hx Tobacco Use: Yes Smoking Status (MU): Heavy Every Day Tobacco Smoker Type: Cigarettes Amount Used/How Often: 2 ppd Review of Systems Positive: Chest Pain Positive: Shortness Of Breath Negative: Nausea, Other - blood in stool, decreased appetite Negative: hematuria Positive: Other - abrasions on arms from falling Neurological: Other - dizziness All Other Systems Reviewed And Are Negative: Yes Physical Exam - Summary Physical Exam Summary: Appearance: Well-appearing, Well-nourished, lying in bed comfortably Skin: Warm, dry, numerous bruises on bilateral arms, with superficial skin tears that are still actively bleeding Eyes: sclera anicteric, conjunctival pallor ENT: mucous membranes moist, pharynx appears normal Neck: Supple, nontender Respiratory: Clear to auscultation, no signs of respiratory distress Cardiovascular: Normal S1, S2. No murmurs. Normal distal pulses in tibial and radial bilaterally. Abdomen: Soft, nontender, normal active bowel sounds present Musculoskeletal: Normal, Strength/ROM Intact Neurological: A&Ox3, awake and alert, mentation is normal, speech is fluent and appropriate Psychiatric: affect is flat, does not appear overtly anxious or depressed Triage Information Reviewed: Yes Vital Signs Reviewed: Yes Diagnostics - Laboratory Result Diagrams: 06/29/18 20:14 06/29/18 20:14 Lab Statement: Any lab studies that have been ordered have been reviewed, and results considered in the medical decision making process. - Radiology CXR Radiology Interpretation Completed By: Radiologist Summary of Radiographic Findings: No active cardiopulmonary disease is noted. ED physician has reviewed this report. - EKG 2003 Cardiac Rate: NL - 75bpm EKG Rhythm: Sinus Rhythm ST Segment: Normal Ectopy: None Summary of EKG Findings: NSR at 75 BPM, P waves, QRS complex, and T waves are within normal limits, T waves and intervals are normal, no ischemic changes. This is a normal EKG Chest Pain Course/Dx - Course Course Of Treatment: Pt is a 53 y/o M presenting to the ED brought in by EMS for chest pain onset 06/26/18 described as pressure that is intermittent, lasting for about 15 minutes at a time. The pain usually comes on with exertion and leaves with rest. He denies nausea, decreased appetite, hematuria, or blood in his stool. He reports CP, SOB, and dizziness. He also denies hx of lung or cardiac issues. He is a smoker and drinks about one pack of beer a day. Upon physical exam, multiple bruises on the bilateral forearms are noted from recent falls, with superficial skin tears that are still actively bleeding. EKG shows NSR at 75 BPM, P waves, QRS complex, and T waves are within normal limits, T waves and intervals are normal, no ischemic changes. The pt's troponin I is 0.04. CXR shows no active cardiopulmonary disease. The pt's second troponin is 0.05. He will be admitted to [facility] with a dx of chest pain. - Diagnoses Provider Diagnoses: Chest pain Discharge - Sign-Out/Discharge Documenting (check all that apply): Patient Departure Patient Received Moderate/Deep Sedation with Procedure: No - Discharge Plan Condition: Stable Disposition: ADMITTED TO [facility] - Billing Disposition and Condition Condition: STABLE Disposition: Admitted to [facility] - Attestation Statements Document Initiated by Korin: Yes Documenting Scribe: Erika Fatima Provider For Whom Korin is Documenting (Include Credential): Dangelo Holbrook MD. Scribe Attestation: Erika Liang, ismaeled for Dangelo Holbrook MD. on 06/30/18 at 0554. Scribe Documentation Reviewed: Yes Provider Attestation: The documentation as recorded by the scribe, Erika Fatima accurately reflects the service I personally performed and the decisions made by me, Dangelo Holbrook MD. Status of Scribe Document: Viewed
[2018-06-29 20:37] LABS: ALT 120 U/L (7-52); AST 142 U/L (13-39); Albumin 2.5 g/dL (3.2-5.2); Alkaline Phosphatase 754 U/L (34-104); Anion Gap 7 mmol/L (2-11); BUN/Creatinine Ratio 8.3 (8-20); Blood Urea Nitrogen 9 mg/dL (6-24); CO2 Carbon Dioxide 24 mmol/L (22-32); Calcium 7.4 mg/dL (8.6-10.3); Chloride 94 mmol/L (101-111); EGFR African American 85.9 (>60); Globulin 2.6 g/dL (2-4); Glucose 93 mg/dL (70-100); Potassium 3.5 mmol/L (3.5-5.0); Sodium 125 mmol/L (135-145); Total Protein 5.1 g/dL (6.4-8.9)
[2018-06-29 20:46] LABS: Troponin I 0.04 ng/mL (<0.04)
[2018-06-29 21:03] LABS: Alcohol 203 mg/dL (<10)
[2018-06-29 21:13] LABS: Hematocrit 28 % (36-46); Hemoglobin 9.6 g/dL (14.0-18.0); Mean Corpuscular HGB Conc 35 g/dL (31-36); Mean Corpuscular Hemoglobin 34 pg (27-31); Mean Corpuscular Volume 97 fL (80-94); Mean Platelet Volume 7.4 fL (7.4-10.4); Platelet Count 91 10^3/uL (150-450); Red Blood Count 2.87 10^6 /uL (4.18-5.48); Red Cell Distribution Width 14 % (10.5-15); White Blood Count 7.6 10^3/uL (3.5-10.8)
[2018-06-29 21:23] LABS: Lymphocytes % 29 %; Monocytes % 6 %; Neutrophil % 64 %
[2018-06-29 21:25] LABS: Polychromasia 1+
[2018-06-29 21:30] LABS: ABS Eosinophils 0.1 10^3/ul (0-0.6); ABS Neutrophils 4.9 10^3/ul (1.5-7.7)
[2018-06-30 00:12] LABS: Troponin I 0.05 ng/mL (<0.04)
[2018-06-30] MEDS ORDERED: Albuterol/Ipratropium NEB.SOL* Albuterol 2.5 MG/Ipratropium 0.5 MG 3 ML INH PRN (02:08)
[2018-06-30] MEDS ORDERED: Al Hydrox/Mg Hydrox/Simet LIQ* 30 ML UDC PO PRN (02:08)
[2018-06-30] MEDS ORDERED: Albuterol HFA INHALER* 8 gm MDI INH PRN (02:36)
[2018-06-30] MEDS ORDERED: LORazepam TAB(*) 1 MG PO SCH (03:00)
[2018-06-30] MEDS ORDERED: cloNIDine TAB* 0.1 MG PO ONE (03:45)
[2018-06-30 03:51] LABS: Troponin I 0.04 ng/mL (<0.04)
[2018-06-30] MEDS: Heparin VIAL(*) 5000 UNITS/ML VIAL (FIVE THOUSAND) SUBCUT SCH ×3 (06:54→22:10)
--- NOTE | 2018-06-30 07:02 | HP ---
HISTORY AND PHYSICAL: DATE OF ADMISSION: 06/30/18 TIME OF ADMISSION: 3 a.m. PRIMARY CARE PHYSICIAN: [facility], he does not know the doctor. CHIEF COMPLAINT: Chest pain. HISTORY OF PRESENT ILLNESS: This is a 53-year-old man with history of alcohol abuse, who presents to the emergency department with 2 days of chest pain. It began at rest, but he cannot recall exactly what he was doing, but he notes he was not exerting himself. He says over the past 2 days it has come and gone. He had never had chest pain like this before. He says it is worsened by nothing. It is random. It does not come on when he exerts himself. He is able to walk up a flight of stairs without chest pain. It happens a few times a day and when it comes on, it lasts approximately 3 minutes and it is relieved on its own. He has no shortness of of breath, cough, palpitations, nausea or vomiting. Review of systems is positive, however, for frequent falls in the last few days. He says that he fell yesterday, the day before, and the day before that. Prior to that he says he did not fall. He says he gets dizzy before he falls. He does not lose consciousness, but he feels like he cannot get his footing. Then he reaches for something to grab on to and is not aware he excepted it to be. He has bruises under his eyes, which he says are from the falls, but says he has sustained no other injuries from the fall. Regarding his alcohol use, he drinks 6 to 8 Budweisers per day and he has not changed this over the past 3 days, neither cut back or increased. He does say he currently has a headache. It is in both temples and it feels dull. He had a recent admission, 06/25/18 to 06/27/18, for alcoholic hepatitis and, of note, he had fallen on that admission as well. 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 PAST MEDICAL HISTORY: Ongoing alcohol abuse, suspected cirrhosis, tobacco use, depression, hypertension. PAST SURGICAL HISTORY: History of hernia repair. HOME MEDICATIONS: This is as per his discharge summary from 06/27/18. 1. Gabapentin 300 mg q.h.s. 2. Amlodipine 10 mg daily. 3. Clonidine 0.3 mg b.i.d. 4. Thiamine 100 mg daily. 5. Folic acid 1 mg daily. 6. Pepcid 20 mg twice a day. 7. Albuterol inhaler 2 puffs q.4 p.r.n. wheezing. FAMILY HISTORY: Noncontributory. SOCIAL HISTORY: He drinks 6 to 8 Budweisers per day. He smokes cigarettes. 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 His last drink was this afternoon. His emergency contacts are his mom and dad. REVIEW OF SYSTEMS: The remainder of the 14-point of review of systems is negative, except for the HPI. PHYSICAL EXAMINATION GENERAL: Alert, comfortable man, in no distress. He awakens to voice and responds appropriately. VITAL SIGNS: Temperature 98.8, respiratory rate 20, pulse ox 93% on room air, blood pressure 178/84, heart rate 68. HEENT: Pupils are equal, round, and reactive to light. He has ecchymosis under both eyes. No other abrasions or lacerations. His oral mucosa is moist, with no pharyngeal exudates or erythema. NECK: No JVP. LUNGS: Clear bilaterally. CHEST: He is in a regular rate and rhythm, with no murmurs. ABDOMEN: Soft. He is tender to deep palpation in the epigastrium. His liver is palpable at the intercostal margin. He has no CVA tenderness. EXTREMITIES: He has 2+ pitting edema to the knees bilaterally. He has no asterixis. NEUROLOGIC: His strength is 5/5 in all extremities. His sensation is intact. His face is symmetric. He has no neglect. His coordination is intact and he is oriented x3. DIAGNOSTIC STUDIES/LAB DATA: White blood cell 7.6, hemoglobin 9.6, platelets 91. Sodium 125, potassium 3.5, chloride 94, bicarb 24, BUN 9, creatinine 1.08, glucose 93, total bilirubin 1.9, AST 142, ALT 120, alk phos 754. Troponin 0.04. Serum alcohol 203. Chest x-ray: No intracranial pathology. EKG shows normal sinus rhythm, normal axis, normal intervals. No ST or T-wave changes. ASSESSMENT AND PLAN: This is a 53-year-old man with a history of alcohol abuse and possible cirrhosis, who presents to the emergency department with 2 days of chest pain and incidentally complains of ongoing falls. 1. Chest pain: His pain is atypical, but he does have risk factors for coronary artery disease. His EKG is not ischemic. I will continue to trend his troponins. Of note, a transthoracic echocardiogram was done last week, which was unremarkable. I will keep him on telemetry. He may warrant a stress test on Sunday morning. 2. Falls: Based on his last H and P, this does not appear to be a new problem. However, I am getting a stat CT head given his facial bruising. He has no other evidence of trauma on physical exam. I am checking a B12 if it has not recently been checked. I am also checking an ammonia and the CT brain is pending as above. 3. Elevated LFTs: They are all around his baseline. I will add on a PT/INR for the morning so that the [facility] can be calculated. He has ongoing alcohol abuse in the setting of either a fatty liver or cirrhosis. Hepatitis panel was checked last week and was negative. 4. Alcohol abuse: I am placing him on the WA protocol. On his last admission last week, he did not require any WA medications. 5. Thrombocytopenia, likely related to liver dysfunction. 6. Anemia: His hemoglobin is below baseline, his MCV is 97, I will work this up. He has no evidence of bleeding at this time. 7. DVT prophylaxis: On hold, pending an INR. 8. Diet: Unrestricted. [id number]/[facility] #: [id number] MTDD
[2018-06-30] MEDS: Famotidine TAB* 20 MG PO SCH ×2 (08:07→22:09)
[2018-06-30] MEDS: Thiamine TAB* 100 MG TAB PO SCH (08:07)
[2018-06-30] MEDS: amLODIPine TAB* 5 MG PO SCH (08:07)
[2018-06-30] MEDS: Multivitamins/Minerals TAB PO SCH (08:07)
[2018-06-30] MEDS: Magnesium Oxide TAB* 400 MG PO SCH ×2 (08:07→22:09)
[2018-06-30] MEDS: cloNIDine TAB* 0.1 MG PO SCH ×2 (08:07→22:09)
[2018-06-30] MEDS: Folic Acid TAB* 1 MG PO SCH (08:07)
[2018-06-30 08:09] LABS: Folate 6.99 ng/mL (>3.99)
[2018-06-30 11:13] LABS: Creatine Kinase 33 U/L (10-223)
[2018-06-30 11:19] LABS: CKMB ng/mL 1.6 ng/mL (0.6-6.3)
[2018-06-30] MEDS ORDERED: Morphine 4 MG/ML VIAL (1 ml) 4 MG/ML VIAL IV PRN (12:16)
[2018-06-30] MEDS: Nitro Patch/OINT Remove TOPICAL SCH ×2 (12:45→20:35)
[2018-06-30] MEDS: Nitro 2% OINT* (Nitroglycerin) 1 INCH/PAK PAK TOPICAL SCH (12:55)
[2018-06-30 14:28] LABS: Creatine Kinase 32 U/L (10-223)
[2018-06-30 14:33] LABS: CKMB ng/mL 1.8 ng/mL (0.6-6.3)
[2018-06-30 15:04] LABS: Troponin I 0.04 ng/mL (<0.04)
[2018-06-30] MEDS: Acetaminophen TAB* 325 MG PO PRN (15:11)
--- NOTE | 2018-06-30 17:41 | PN ---
Subjective Date of Service: 06/30/18 Interval History: Pt seen and examined. Meds and labs reviewed. CC: N/A ROS: Denied SHAW/dizziness, F/C, N/V, CP, SOB, increased cough, sputum production , abd pain, diarrhea, constipation, dysuria, myalgias, arthralgias, throat pain , and new skin lesions. The rest of the 14 point ROS are unremarkable. PHYSICAL EXAM: GEN APPEARANCE: Awake, not in acute distress HEENT: NC/AT, PERRLA, moist oral mucosa, (-) throat erythema NECK: Soft, supple, (-) cervical LAD, (-)JVD HEART: S1S2 WNL, RRR, No MRG CHEST: CTA, BL, GAE, No W/R/R ABD: Soft, ND/NT, NABS 4x Q EXT: No C/C/E SKIN: Warm to touch PSYCH: No active psychosis, hallucinations, depression, SI/HI Objective Active Medications: Acetaminophen (Tylenol Tab*) 650 mg PO Q4H PRN PRN Reason: FEVER/PAIN Last Admin: 06/30/18 15:11 Dose: 650 mg Al Hydrox/Mg Hydrox/Simethicone (Maalox Plus*) 30 ml PO Q6H PRN PRN Reason: INDIGESTION Last Admin: 06/30/18 06:54 Dose: 30 ml Albuterol (Ventolin Hfa Inhaler*) 2 puff INH Q4H PRN PRN Reason: WHEEZING Albuterol/Ipratropium (Duoneb (Albuterol 2.5 Mg/Ipratropium 0.5 Mg)) 1 neb INH RT.[id number] AWAKE PRN PRN Reason: sob/wheexing Amlodipine Besylate (Norvasc Tab*) 10 mg PO DAILY [facility] Last Admin: 06/30/18 08:07 Dose: 10 mg Clonidine HCl (Catapres Tab*) 0.3 mg PO BID [facility] Last Admin: 06/30/18 08:07 Dose: 0.3 mg Famotidine (Pepcid Tab*) 20 mg PO BID [facility] Last Admin: 06/30/18 08:07 Dose: 20 mg Folic Acid (Folvite Tab*) 1 mg PO DAILY [facility] Last Admin: 06/30/18 08:07 Dose: 1 mg Gabapentin (Neurontin Cap(*)) 300 mg PO 2100 [facility] Heparin Sodium (Porcine) (Heparin Vial(*)) 5,000 units SUBCUT Q8HR [facility] Last Admin: 06/30/18 12:55 Dose: 5,000 units Lorazepam (Ativan Tab(*)) 0 - 6 mg PO .PER [facility] PROTOCOL [facility]; Protocol Magnesium Oxide (Magox 400 Tab*) 400 mg PO BID [facility] Last Admin: 06/30/18 08:07 Dose: 400 mg Morphine Sulfate (Morphine 4 Mg/Ml Vial (1 Ml)) 0.5 mg IV Q6H PRN PRN Reason: Breakthrough pain Multivitamins/Minerals (Theragran/Minerals Tab*) 1 tab PO DAILY [facility] Last Admin: 06/30/18 08:07 Dose: 1 tab Nitroglycerin (Nitroglycerin 2% Oint*) 1 inch TOPICAL 0800,1400 [facility]; Protocol Last Admin: 06/30/18 12:55 Dose: 1 inch Pharmacy Profile Note (Nitro Patch/Oint Remove*) 1 note TOPICAL 1400,1999 [facility] Last Admin: 06/30/18 12:45 Dose: Not Given Thiamine HCl (Vitamin B-1 Tab*) 100 mg PO DAILY [facility] Last Admin: 06/30/18 08:07 Dose: 100 mg Vital Signs - 8 hr 06/30/18 06/30/18 06/30/18 10:08 12:00 14:04 Temperature 97.4 F 97.6 F 98.1 F Pulse Rate 56 63 64 Respiratory 18 16 14 Rate Blood Pressure 152/66 166/73 155/70 (mmHg) O2 Sat by Pulse 98 97 98 Oximetry 06/30/18 16:03 Temperature 98.0 F Pulse Rate 76 Respiratory 16 Rate Blood Pressure 186/79 (mmHg) O2 Sat by Pulse 100 Oximetry Oxygen Devices in Use Now: None Result Diagrams: 06/29/18 20:14 06/29/18 20:14 Assess/Plan/Problems-Billing Assessment: - Patient Problems (1) Chest pain Current Visit: Yes Status: Acute Code(s): R07.9 - CHEST PAIN, UNSPECIFIED SNOMED Code(s): 34289469 Comment: -Atypical but with mildly elevated troponins -Reviewed tele and asymptomatic shannan while asleep last night -For stress test in AM (2) Falls Current Visit: Yes Status: Acute Comment: -B12 levels high and folate wnl -Pt known to have suspected cirrhosis, although not seen on imaging, pt has thrombocytopenia -Possible encephalopathy? Will check ammonia levels (3) Elevated LFTs Current Visit: Yes Status: Acute Code(s): R94.5 - ABNORMAL RESULTS OF LIVER FUNCTION STUDIES SNOMED Code(s): 056270338 Comment: -Pt has known history of fatty liver disease likely due to ETOH -Slightly elevated from yesterday -Continue watchful waiting (4) ETOH abuse Current Visit: Yes Status: Acute Code(s): F10.10 - ALCOHOL ABUSE, UNCOMPLICATED SNOMED Code(s): 20218744 Comment: -Continue WAM protocol -Advised lifestyle modifications (5) Thrombocytopenia Current Visit: Yes Status: Acute Code(s): D69.6 - THROMBOCYTOPENIA, UNSPECIFIED SNOMED Code(s): 049499245 Comment: -Please see above discussion (6) DVT prophylaxis Current Visit: No Status: Acute Code(s): XYN7770 - SNOMED Code(s): 619232156 Comment: -Continue Heparin SQ Status and Disposition: -For stress test in AM
[2018-06-30] MEDS ORDERED: Gabapentin CAP(*) 300 MG PO SCH (21:00)
[2018-07-01] MEDS: Heparin VIAL(*) 5000 UNITS/ML VIAL (FIVE THOUSAND) SUBCUT SCH (06:34)
[2018-07-01 06:56] LABS: Hematocrit 25 % (36-46); Hemoglobin 8.5 g/dL (14.0-18.0); Mean Corpuscular HGB Conc 34 g/dL (31-36); Mean Corpuscular Hemoglobin 33 pg (27-31); Mean Corpuscular Volume 97 fL (80-94); Mean Platelet Volume 8.2 fL (7.4-10.4); Platelet Count 93 10^3/uL (150-450); Red Blood Count 2.59 10^6 /uL (4.18-5.48); Red Cell Distribution Width 14 % (10.5-15)
[2018-07-01 07:10] LABS: Albumin 2.3 g/dL (3.2-5.2); Albumin/Globulin Ratio 1.1 (1-3); BUN/Creatinine Ratio 8.4 (8-20); EGFR African American 116.4 (>60); EGFR Non-African American 96.2 (>60); Globulin 2.1 g/dL (2-4); Phosphorus 3.3 mg/dL (2.5-5.0); Potassium 3.2 mmol/L (3.5-5.0); Total Bilirubin 1.7 mg/dL (0.2-1.0); Total Protein 4.4 g/dL (6.4-8.9)
[2018-07-01] MEDS: amLODIPine TAB* 5 MG PO SCH (09:42)
[2018-07-01] MEDS: Famotidine TAB* 20 MG PO SCH (09:42)
[2018-07-01] MEDS: cloNIDine TAB* 0.1 MG PO SCH (09:42)
[2018-07-01] MEDS: Magnesium Oxide TAB* 400 MG PO SCH (09:42)
[2018-07-01] MEDS: Multivitamins/Minerals TAB PO SCH (09:42)
[2018-07-01] MEDS: Thiamine TAB* 100 MG TAB PO SCH (09:42)
[2018-07-01] MEDS: Acetaminophen TAB* 325 MG PO PRN (09:42)
[2018-07-01] MEDS: Nitro 2% OINT* (Nitroglycerin) 1 INCH/PAK PAK TOPICAL SCH (09:42)
[2018-07-01] MEDS: Folic Acid TAB* 1 MG PO SCH (09:42)
[2018-07-01] MEDS ORDERED: RiFAXimin* 550 MG TAB PO SCH (11:30)
[2018-07-01] MEDS ORDERED: Regadenoson* 0.4 MG/5 ML SYRINGE ONE (11:32)
[2018-07-01 12:19] VITALS: BP 134/63
[2018-07-01] MEDS ORDERED: Potassium Chlor TAB* 20 MEQ TAB.ER PO STA (12:31)
--- NOTE | 2018-07-02 00:46 | DS ---
CC: Kathleen Christian DO; Dangelo Holbrook MD * DISCHARGE SUMMARY: DATE OF ADMISSION: 06/30/18 DATE OF DISCHARGE: 07/01/18 DISCHARGE CONDITION: Stable. DISCHARGE DISPOSITION: Home. DISCHARGE DIAGNOSES: 1. Chest pain, atypical, noncardiac; low risk stress test. 2. Frequent falls, likely secondary to alcohol intoxication/abuse. 3. Ethanol abuse/intoxication. 4. Alcoholic fatty liver disease, possibly early cirrhosis; patient for FibroSURE test as outpatient. DISCHARGE MEDICATIONS: 1. Albuterol 1 to 2 puffs inhalation q.4 hours p.r.n. 2. Amlodipine 10 mg p.o. daily. 3. Clonidine 0.3 mg p.o. b.i.d. 4. Famotidine 20 mg p.o. b.i.d. 5. Folic acid 1 mg p.o. daily. 6. Gabapentin 300 mg p.o. q.p.m. 7. Magnesium oxide 400 mg p.o. b.i.d. 8. Multivitamins 1 tab p.o. daily. 9. Thiamine 100 mg p.o. daily. HISTORY OF PRESENT ILLNESS/HOSPITAL COURSE: The patient is a 53-year-old gentleman with a history of alcohol abuse who presented to the emergency department on 06/30/18 with 2 days of chest pain where he mentioned that it began at rest and without any exacerbating or alleviating factors and it is intermittent. He was admitted for chest pain observation and was found to have mildly elevated troponins with the peak being 0.05. He recently had a 2 -D echo back on 06/26/18 and the patient has not complained of any further deterioration of his chest pain, in fact, it has resolved. He underwent stress test prior to his discharge and it was read as low probability stress test. Therefore, the elevated cardiac enzymes is thought to be due to demand ischemia. The patient does have some thrombocytopenia and some spider angiomata and hence likely in early cirrhotic even though the imaging has not suggested this yet. The patient, therefore, was advised to request for a FibroSURE test to be requested from his primary care physician as an outpatient and hence we will defer. The patient was advised followup and/or call his PCP within 3 days post discharge. He was advised to look at his food labels and was advised to not ingest more than 2 g of sodium per day. He was advised to refrain from drinking alcohol and to go to AA meetings and outpatient alcohol rehab. He was advised to ask his PCP to see whether his FibroSURE test can be ordered as an outpatient so that this can be followed up to determine whether he is in early cirrhosis or not. He was advised that his symptoms resume or develop new ones or feel unwell for any reason, to call his PCP first. If his PCP is unable to entertain him due to scheduling issues alone, he was advised to call [facility] if the issue is nonemergent. He was advised to call my office regarding any questions, concerns, or further clarifications regarding his discharge plans and/or prescriptions and to take his medications as prescribed. REVIEW OF SYSTEMS: The patient denied any current headaches, dizziness, fevers , chills, nausea, vomiting, chest pain, shortness of breath, increased coughing or sputum production, abdominal pain, diarrhea, constipation, pain and/or increased frequency on urination, myalgias, arthralgias, throat pain or new skin lesions. The rest of the 14-point review of systems are otherwise unremarkable. PHYSICAL EXAMINATION: Shows the most recent vital signs of records with blood pressure of 134/63, 96.8 degrees Fahrenheit, 51 beats per minute heart rate, 16 per minute respiratory rate, saturating at 89% at room air from previous of 94 and 95. General Appearance: The patient is awake, alert, and oriented x3, not in acute distress. HEENT: Normocephalic, atraumatic. PERRLA. Extraocular muscles intact. Negative for icterus. Moist oral mucosa. Negative throat erythema. Neck is soft, supple, with no cervical lymphadenopathy. No JVD. Heart: S1 and S2 within normal limits. Regular rate and rhythm. No murmurs, rubs, or gallops. Chest: Clear to auscultation bilaterally. Good air entry. No wheezes, rales or rhonchi. Abdomen: Soft, nondistended, nontender. Normoactive bowel sounds x4 quadrants. Extremities: No cyanosis or clubbing. 1 to 2+ bilateral lower extremity edema. Psychiatric: No active psychosis, depression, suicidal or homicidal ideations. Skin is warm to touch. TIME SPENT: The total time spent evaluating the patient, reviewing pertinent data, and appropriate documentation is 50 minutes. [id number]/[facility] #: [id number] KARAN
== END 2018-07-01 13:15 | disposition home or self-care (01) ==
LOC: ED 19:50 → MEDTELE 06-30 02:08
PROVIDERS: ADMIT Internal Medicine; ATTEND Student in an Organized Health Care Education/Training Program
DX: R07.89 Other chest pain (principal); Z91.81 History of falling; F10.129 Alcohol abuse with intoxication, unspecified; K70.0 Alcoholic fatty liver; F10.10 Alcohol abuse, uncomplicated; R42 Dizziness and giddiness; F17.210 Nicotine dependence, cigarettes, uncomplicated; R94.5 Abnormal results of liver function studies; D69.6 Thrombocytopenia, unspecified
CPT/HCPCS: 36415; 70450; 71045; 78452; 80053; 80320; 82140; 82550; 82553; 82607; 82746; 83690; 83735; 84100; 84484; 85025; 85027; 85060; 93005; 93017; 96361; 96372; 96374; 99285; 99406; A9270-GY; A9502; G0378; G0480; J1644; J2785

== ENCOUNTER 2018-07-02 17:56 | Emergency (ER) | payer MEDICARE ==
[2018-07-02 20:21] LABS: Alcohol 50 mg/dL (<10)
[2018-07-02 20:26] LABS: Troponin I 0.05 ng/mL (<0.04)
--- NOTE | 2018-07-02 21:15 | ED ---
HPI Cardiac - HPI Summary HPI Summary: Patient is a 53 y/o M presenting to ED with complaints of left sided chest pain for the past six days. Chest pain is reported to radiate down his left arm. He notes that he has been SOB, stating that he cannot walk a couple of feet without experiencing dyspnea. Patient additionally reports dizziness, numbness to hands bilaterally. He had been admitted to the hospital previously but left AMA yesterday. Patient had a cardiac stress test a day ago as an in-patient which was negative. Today, patient states that he continues to have chest pain and wants to be evaluated. He notes that he should not have left AMA. No cardiac Hx prior to this week is reported. On triage, pain is rated 6/10, nothing is noted to aggravate/alleviate Sx. Home medications and allergies are reviewed. - History of Current Complaint Chief Complaint: EDChestPainROMI Stated Complaint: CHEST PAIN, SOB PER PT Time Seen by Provider: 07/02/18 18:53 Hx Obtained From: Patient Onset/Duration: Started Days Ago - six days ago, Still Present Timing: Constant Current Severity: Moderate - 6/10 Pain Intensity: 6 Pain Scale Used: 0-10 Numeric - 6/10 Chest Pain Location: Left Anterior Chest Pain Radiates: Yes Chest Pain Radiates To:: Arm - left Aggravating Factor(s): Nothing Alleviating Factor(s): Nothing Associated Signs and Symptoms: Positive: Chest Pain, Numbness - bilaterally hands, Dizziness, Shortness of Breath - Additional Pertinent History Primary Care Physician: [id number] - Allergy/Home Medications Allergies/Adverse Reactions: Allergies Allergy/AdvReac Type Severity Reaction Status Date / Time No Known Allergies Allergy Verified 07/03/18 11:38 PMH/Surg Hx/FS Hx/Imm Hx Endocrine/Hematology History: Denies: Hx Anticoagulant Therapy, Hx Diabetes Cardiovascular History: Reports: Hx Angina, Hx Hypertension Denies: Hx Coronary Artery Disease, Hx Hypercholesterolemia, Hx Myocardial Infarction, Other Cardiovascular Problems/Disorders Respiratory History: Reports: Hx Chronic Obstructive Pulmonary Disease (COPD) Comment Only: Hx Asthma - IN CHILDHOOD ONLY GI History: 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, Hx Hiatal Hernia History: Denies: Hx Chronic Renal Failure, Hx Dialysis Sensory History: Denies: Hx Contacts or Glasses, Hx Eye Prosthesis, Hx Hearing Aid Opthamlomology History: Denies: Hx Contacts or Glasses, Hx Eye Prosthesis Neurological History: Denies: Hx Developmental Delay Psychiatric History: Reports: Hx Anxiety, Hx Depression, Hx Substance Abuse - EtOH Denies: Hx Attention Deficit Hyperactivity Disorder, Hx Autism, Hx Eating Disorder, Hx Panic Disorder, Hx Post Traumatic Stress Disorder, Hx Inpatient Treatment, Hx Community Mental Health Tx, Hx Schizophrenia, Hx Bipolar Disorder , Hx Suicide Attempt, Hx of Violent Episodes Against Others, Other Psychiatric Issues/Disorders - Surgical History Surgery Procedure, Year, and Place: inguinal hernia repair Infectious Disease History: Yes Infectious Disease History: Denies: Traveled Outside the [place] in Last 30 Days - Family History Known Family History: Positive: Hypertension, Diabetes - mother, Other - HLD Negative: Cardiac Disease - Social History Alcohol Use: Daily Alcohol Amount: ~one 12-pack of beer/day Hx Substance Use: No Substance Use Type: Reports: None Hx Tobacco Use: Yes Smoking Status (MU): Heavy Every Day Tobacco Smoker Type: Cigarettes Amount Used/How Often: 2 ppd Review of Systems Positive: Chest Pain Positive: Shortness Of Breath Neurological: Other - POSITIVE - DIZZINESS Positive: Numbness - hands bilaterally All Other Systems Reviewed And Are Negative: Yes Physical Exam - Summary Physical Exam Summary: Appearance: Well-appearing, Well-nourished, lying in bed comfortably Skin: Warm, dry, no obvious rash Eyes: sclera anicteric, no conjunctival pallor ENT: mucous membranes moist, pharynx appears normal Neck: Supple, nontender Respiratory: rhonchi at left lung, no signs of respiratory distress Cardiovascular: Normal S1, S2. No murmurs. Normal distal pulses in tibial and radial bilaterally. Abdomen: Soft, nontender, normal active bowel sounds present Musculoskeletal: Normal, Strength/ROM Intact Neurological: A&Ox3, awake and alert, mentation is normal, speech is fluent and appropriate Psychiatric: affect is normal, does not appear anxious or depressed Triage Information Reviewed: Yes Vital Signs On Initial Exam: Initial Vitals Temp Pulse Resp BP Pulse Ox 97.8 F 68 20 144/80 98 07/02/18 18:08 07/02/18 18:08 07/02/18 18:08 07/02/18 18:08 07/02/18 18:08 Vital Signs Reviewed: Yes Diagnostics - Vital Signs Vital Signs Temp Pulse Resp BP Pulse Ox 07/02/18 20:44 96.5 F 118 24 214/96 98 07/02/18 18:08 97.8 F 68 20 144/80 98 - Laboratory Lab Results: Lab Results 07/02/18 Range/Units 19:49 Troponin I 0.05 H* (<0.04) ng/mL Serum Alcohol 50 H (<10) mg/dL Lab Statement: Any lab studies that have been ordered have been reviewed, and results considered in the medical decision making process. - Radiology chest x-ray Radiology Interpretation Completed By: ED Physician Summary of Radiographic Findings: CXR showed no acute process, pending official report. - EKG 1813 Cardiac Rate: NL - rate of 63 BPM EKG Rhythm: Sinus Rhythm Summary of EKG Findings: NSR at 63 BPM, P waves, QRS complex, and T waves are within normal limits, T waves and intervals are normal, no ischemic changes. This is a normal EKG. Disposition - Course Course Of Treatment: Patient is a 53 y/o M presenting to ED with complaints of left sided chest pain for the past six days. Chest pain is reported to radiate down his left arm. He notes that he has been SOB, stating that he cannot walk a couple of feet without experiencing dyspnea. Patient additionally reports dizziness, numbness to hands bilaterally. He had been admitted to the hospital previously but left AMA yesterday. Patient had a cardiac stress test a day ago as an in-patient which was negative. Today, patient states that he continues to have chest pain and wants to be evaluated. He notes that he should not have left AMA. No cardiac Hx prior to this week is reported. Physical exam showed rhonchi at left lung. CXR showed no acute process, pending official report. NSR at 63 BPM, P waves, QRS complex, and T waves are within normal limits, T waves and intervals are normal, no ischemic changes. This is a normal EKG. Trop was 0.05, serum alcohol was 50. Patient will be discharged to home, he is agreeable with this. - Diagnoses Provider Diagnoses: Chronic chest pain Discharge - Sign-Out/Discharge Documenting (check all that apply): Patient Departure - discharge Patient Received Moderate/Deep Sedation with Procedure: No - Discharge Plan Condition: Good Disposition: HOME Patient Education Materials: Chronic Pain (ED), Abuse of Alcohol (ED) Referrals: [facility] [Outside] - Billing Disposition and Condition Condition: GOOD Disposition: Home - Attestation Statements Document Initiated by Nedaibdeny: Yes Documenting Scribe: MARKEL SALCIDO Provider For Whom Korin is Documenting (Include Credential): CHRISTEN GARZA MD Scribe Attestation: I, MARKEL SALCIDO, scribed for CHRISTEN GARZA MD on 07/07/18 at 1841. Scribe Documentation Reviewed: Yes Provider Attestation: The documentation as recorded by the MARKEL lennon accurately reflects the service I personally performed and the decisions made by me, CHRISTEN GARZA MD Status of Scribe Document: Viewed
[2018-07-02 22:40] LABS: Troponin I 0.04 ng/mL (<0.04)
[2018-07-02 23:05] VITALS: BP 183/91
== END 2018-07-02 23:05 | disposition home or self-care (01) ==
LOC: ED 17:56
DX: R07.9 Chest pain, unspecified (principal); G89.29 Other chronic pain; R94.31 Abnormal electrocardiogram [ECG] [EKG]; I10 Essential (primary) hypertension; J44.9 Chronic obstructive pulmonary disease, unspecified; K70.30 Alcoholic cirrhosis of liver without ascites; F41.9 Anxiety disorder, unspecified; F32.9 Major depressive disorder, single episode, unspecified; F17.210 Nicotine dependence, cigarettes, uncomplicated
CPT/HCPCS: 36415; 71046; 80320; 84484; 93005; 99283; G0480

== ENCOUNTER 2018-07-03 11:28 | Emergency (ER) | payer MEDICARE ==
[2018-07-03] MEDS ORDERED: NS 0.9% 1000 ML** 1,000 ML IV ONE (12:15)
[2018-07-03] MEDS ORDERED: Aspirin 81 mg CHEW TAB* 81 MG TAB.CHEW PO ONE (12:15)
--- NOTE | 2018-07-03 12:33 | ED ---
HPI Chest Pain - HPI Summary HPI Summary: Pt is a 48 y/o M presenting to the ED with a chief complaint of chest pain onset one week ago. He rates his pain at a 4/10, describes it as tightness, and says it radiates to both of his arms. He reports associated SOB and dizziness when he stands up. He denies nausea and vomiting. He was in the hospital for a cardiac stress test and states he left because he was being abandoned. Pt had a "low risk" cardiac stress test on 06/30/18 while inpatient at [facility]. The pt has hx of smoking and drinking EtOH, today he reports hes had 12 beers. - History of Current Complaint Chief Complaint: EDChestPainROMI Time Seen by Provider: 07/03/18 12:08 Hx Obtained From: Patient, Medical Records - [facility] Onset/Duration: Started Days Ago, Still Present Timing: Constant, Lasting Days Initial Severity: Moderate Current Severity: Moderate Pain Intensity: 6 Pain Scale Used: 0-10 Numeric Chest Pain Location: Left Anterior Chest Pain Radiates: Yes Chest Pain Radiates To:: Arm - bilateral Character: Tightness Aggravating Factor(s): Other: - standing up Alleviating Factor(s): Nothing Associated Signs and Symptoms: Positive: Chest Pain, Dizziness, Shortness of Breath, Other: - arm pain. Negative: Nausea, Vomiting - Additional Pertinent History Primary Care Physician: ASHLI - Allergy/Home Medications Allergies/Adverse Reactions: Allergies Allergy/AdvReac Type Severity Reaction Status Date / Time No Known Allergies Allergy Verified 07/03/18 11:38 PMH/Surg Hx/FS Hx/Imm Hx Previously Healthy: No Endocrine/Hematology History: Denies: Hx Anticoagulant Therapy, Hx Diabetes Cardiovascular History: Reports: Hx Angina, Hx Hypertension Denies: Hx Coronary Artery Disease, Hx Hypercholesterolemia, Hx Myocardial Infarction, Other Cardiovascular Problems/Disorders Respiratory History: Reports: Hx Chronic Obstructive Pulmonary Disease (COPD) Comment Only: Hx Asthma - IN CHILDHOOD ONLY GI History: 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, Hx Hiatal Hernia History: Denies: Hx Chronic Renal Failure, Hx Dialysis Sensory History: Denies: Hx Contacts or Glasses, Hx Eye Prosthesis, Hx Hearing Aid Opthamlomology History: Denies: Hx Contacts or Glasses, Hx Eye Prosthesis Neurological History: Denies: Hx Developmental Delay Psychiatric History: Reports: Hx Anxiety, Hx Depression, Hx Substance Abuse - EtOH Denies: Hx Attention Deficit Hyperactivity Disorder, Hx Autism, Hx Eating Disorder, Hx Panic Disorder, Hx Post Traumatic Stress Disorder, Hx Inpatient Treatment, Hx Community Mental Health Tx, Hx Schizophrenia, Hx Bipolar Disorder , Hx Suicide Attempt, Hx of Violent Episodes Against Others, Other Psychiatric Issues/Disorders - Surgical History Surgery Procedure, Year, and Place: inguinal hernia repair Infectious Disease History: No Infectious Disease History: Denies: Traveled Outside the [place] in Last 30 Days - Family History Known Family History: Positive: Hypertension, Diabetes - mother, Other - HLD Negative: Cardiac Disease - Social History Alcohol Use: Daily Alcohol Amount: ~one 12-pack of beer/day Hx Substance Use: No Substance Use Type: Reports: None Hx Tobacco Use: Yes Smoking Status (MU): Heavy Every Day Tobacco Smoker Type: Cigarettes Amount Used/How Often: 2 ppd Review of Systems Constitutional: Negative Positive: Chest Pain Positive: Shortness Of Breath Negative: Vomiting, Nausea Positive: no symptoms reported Musculoskeletal: Negative Skin: Negative Neurological: Other - dizziness on standing Psychological: Normal All Other Systems Reviewed And Are Negative: Yes Physical Exam - Summary Physical Exam Summary: Appearance: Chronically ill-appearing, moderate pain distress, well-nourished Skin: Warm, color reflects adequate perfusion, dry. Pale. Multiple ecchymoses of different ages Head: Normal Head/Face inspection, atraumatic Eyes: Conjunctiva clear ENT: Normal inspection Neck: Supple, no nodes, no JVD Respiratory: Lungs clear, normal breath sounds, no respiratory distress Cardio: RRR, No murmur, pulses normal, brisk capillary refill Abdomen: Soft, nontender Bowel sounds: Present Musculoskeletal: Strength Intact/ROM intact, no calf tenderness, no edema. Psychological: coherent, calm, cooperative; pt does not appear or act intoxicated, despite reporting 12 beers consumed today Neuro: Alert, muscle tone normal, no focal deficit, speech clear Triage Information Reviewed: Yes Vital Signs On Initial Exam: Initial Vitals Temp Pulse Resp BP Pulse Ox 97.7 F 80 19 180/88 99 07/03/18 11:35 07/03/18 11:35 07/03/18 11:35 07/03/18 11:35 07/03/18 11:35 Vital Signs Reviewed: Yes Diagnostics - Vital Signs Vital Signs Temp Pulse Resp BP Pulse Ox 07/03/18 11:35 97.7 F 80 19 180/88 99 - Laboratory Result Diagrams: 07/03/18 12:26 07/03/18 12:26 Lab Statement: Any lab studies that have been ordered have been reviewed, and results considered in the medical decision making process. - Radiology CXR Radiology Interpretation Completed By: Radiologist Summary of Radiographic Findings: No active cardiopulmonary disease is noted. ED physician has reviewed this report. - EKG 1145 Cardiac Rate: NL - 69bpm EKG Rhythm: Sinus Rhythm ST Segment: Normal Ectopy: None EKG Comparison: No Significant Change - from 07/02/18 Summary of EKG Findings: An EKG at 1145 reveals NSR at 69bpm, nml AV/IV CT, nml QTc, and nml axis. No acute changes from 06/22/18. Re-Evaluation - Re-Evaluation 1st re-eval Re-Evaluation Time: 17:07 Change: Improved Comment: The pt feels okay, still has slight pressure but is less than it was and he agrees with discharge. Pt advised that his troponin is slightly elevated , but consistent with his previous levels, and given his low risk stress test, it is unlikely that his chest pain is cardiac. Chest Pain Course/Dx - Course Course Of Treatment: Pt is a 53 y/o M presenting to the ED with a chief complaint of chest pain onset 1 week ago. He reports associated SOB and dizziness. He denies nausea and vomiting. He reports being in the hospital recently for a cardiac stress test, but he had left AMA due to "being abandoned. ". The pts chemistry shows sodium of 128, chloride of 95, BUN/creatinine ratio of 7.8, calcium of 8.2, magnesium of 1.8, total bilirubin of 1.40, AST of 98, ALT of 87, alkaline phosphate of 707, total protein of 5.0, and albumin of 2.7. His bloodwork shows RBC at 2.65, Hgb at 8.9, Hct at 26, MCV at 98, MCH at 34, Plt count of 148, myelocytes at 3, and 1 nucleated RBC/100WBC. His D-dimer is 353. (sligtly elevated for his age, but pt is without SOB.) His lactic acid is 3.4.(pt has no signs or sxs of sepsis). His troponin is 0.04, which is his baseline. His BNP is 260. His thyroxine (T4) is 4.57. His second troponin is 0.04. CXR shows no active cardiopulmonary disease. An EKG at 1145 reveals NSR at 69bpm, nml AV/IV CT, nml QTc, and nml axis. No acute changes from 06/22/18. In the setting of a low risk stress test, pt may be discharged. His sodium is also in the same range. His magnesium is replaced orally. His LFT's are in the same range as in the past. He will be d/c'ed with dx including chronic alcoholism, chest pain, hyponatremia, and elevated LFTs. - Chest Pain Differential Diagnosis/HQI/PQRI: Acute MO, ACS, Angina, Chest Wall, GI Disease, Lower Respiratory Infection - Diagnoses Provider Diagnoses: Chronic alcoholism, Chest pain, Hyponatremia, Elevated liver function tests, Hypomagnesemia, Anemia, Thrombocytopenia Discharge - Sign-Out/Discharge Documenting (check all that apply): Patient Departure - home Patient Received Moderate/Deep Sedation with Procedure: No - Discharge Plan Condition: Stable Disposition: HOME Patient Education Materials: Chest Pain (ED), Abuse of Alcohol (ED) Referrals: [facility] [Outside] - 2 Days () Additional Instructions: Return to the ER if any new or worsening symptoms. - Billing Disposition and Condition Condition: STABLE Disposition: Home - Attestation Statements Document Initiated by Korin: Yes Documenting Scribe: Erika Fatima Provider For Whom Korin is Documenting (Include Credential): Dr. Araceli Rosales MD. Scribe Attestation: Erika Liang scribed for Dr. Araceli Rosales MD. on 07/04/18 at 2206. Scribe Documentation Reviewed: Yes Provider Attestation: The documentation as recorded by the Erika lennon accurately reflects the service I personally performed and the decisions made by , Dr. Araceli Rosales MD. Status of Scribe Document: Viewed
[2018-07-03 12:39] LABS: Hematocrit 26 % (36-46); Hemoglobin 8.9 g/dL (14.0-18.0); Mean Corpuscular HGB Conc 35 g/dL (31-36); Mean Corpuscular Hemoglobin 34 pg (27-31); Mean Corpuscular Volume 98 fL (80-94); Mean Platelet Volume 7.4 fL (7.4-10.4); Platelet Count 148 10^3/uL (150-450); Red Blood Count 2.65 10^6 /uL (4.18-5.48); Red Cell Distribution Width 15 % (10.5-15); White Blood Count 7.6 10^3/uL (3.5-10.8)
[2018-07-03 12:43] LABS: Activated Partial Thrombo Time 27.1 seconds (26.0-36.3); INR 0.84 (0.82-1.09)
[2018-07-03 12:53] LABS: ALT 87 U/L (7-52); AST 98 U/L (13-39); Albumin 2.7 g/dL (3.2-5.2); Albumin/Globulin Ratio 1.2 (1-3); Alkaline Phosphatase 707 U/L (34-104); Anion Gap 7 mmol/L (2-11); BUN/Creatinine Ratio 7.8 (8-20); Blood Urea Nitrogen 8 mg/dL (6-24); CO2 Carbon Dioxide 26 mmol/L (22-32); Calcium 8.2 mg/dL (8.6-10.3); Chloride 95 mmol/L (101-111); Creatine Kinase 35 U/L (10-223); EGFR African American 91.8 (>60); EGFR Non-African American 75.8 (>60); Globulin 2.3 g/dL (2-4); Glucose 78 mg/dL (70-100); Magnesium 1.8 mg/dL (1.9-2.7); Potassium 3.9 mmol/L (3.5-5.0); Sodium 128 mmol/L (135-145)
[2018-07-03 12:58] LABS: CKMB ng/mL 2.1 ng/mL (0.6-6.3)
[2018-07-03 12:59] LABS: Troponin I 0.04 ng/mL (<0.04)
[2018-07-03 13:15] LABS: ABS Basophils 0 10^3/ul (0-0.2); ABS Eosinophils 0 10^3/ul (0-0.6); ABS Monocytes 0.8 10^3/ul (0-0.8); ABS Neutrophils 3.8 10^3/ul (1.5-7.7); ABS Nucleated RBC 0 10^3/ul
[2018-07-03 13:18] LABS: Immature Granulocytes 4 % (0-9); Lymphocytes % 21 %; Metamyelocytes % 1 % (0-2); Monocytes % 10 %; Myelocytes % 3 % (0-1); Neutrophil % 61 %; Nucleated Red Blood Cells/100 1 (0-0); Polychromasia 1+; Variant Lymph % 3 % (0-6)
[2018-07-03 13:19] LABS: Spherocytes 1+
[2018-07-03 13:21] LABS: ABS Eosinophils 0.1 10^3/ul (0-0.6); ABS Neutrophils 5.3 10^3/ul (1.5-7.7)
[2018-07-03 13:46] LABS: T4, Total 4.57 mcg/dL (6.09-12.23)
[2018-07-03 13:50] LABS: TSH (Thyroid Stimulating Horm) 3.26 mcIU/mL (0.34-5.60)
[2018-07-03 16:15] LABS: Urine Appearance Clear; Urine Bilirubin Negative (Negative); Urine Blood Negative (Negative); Urine Color Straw; Urine Glucose Negative (Negative); Urine Ketones Negative (Negative); Urine Nitrite Negative (Negative); Urine Protein Negative (Negative); Urine Specific Gravity 1.005 (1.010-1.030); Urine Urobilinogen Negative (Negative)
[2018-07-03 16:27] LABS: Troponin I 0.04 ng/mL (<0.04)
[2018-07-03] MEDS ORDERED: Magnesium Oxide TAB* 400 MG PO ONE (17:03)
[2018-07-03 17:54] VITALS: BP 185/85
== END 2018-07-03 17:55 | disposition home or self-care (01) ==
LOC: ED 11:28
DX: F10.20 Alcohol dependence, uncomplicated (principal); R07.9 Chest pain, unspecified; E87.1 Hypo-osmolality and hyponatremia; R79.89 Other specified abnormal findings of blood chemistry; E83.42 Hypomagnesemia; D64.9 Anemia, unspecified; D69.6 Thrombocytopenia, unspecified; I10 Essential (primary) hypertension; J44.9 Chronic obstructive pulmonary disease, unspecified; K70.30 Alcoholic cirrhosis of liver without ascites; F41.9 Anxiety disorder, unspecified; F32.9 Major depressive disorder, single episode, unspecified; F17.210 Nicotine dependence, cigarettes, uncomplicated
CPT/HCPCS: 36415; 71045; 80053; 81003; 82550; 82553; 83605; 83735; 83880; 84436; 84443; 84484; 85025; 85379; 85610; 85730; 93005; 96360; 96361; 99283; A9270-GY

== ENCOUNTER 2018-07-04 20:24 | Emergency (ER) | payer MEDICARE ==
[2018-07-04] MEDS ORDERED: Aspirin 81 mg CHEW TAB* 81 MG TAB.CHEW PO ONE (20:32)
--- NOTE | 2018-07-04 20:34 | ED ---
HPI Chest Pain - HPI Summary HPI Summary: 53 year old M brought in by ambulance to [facility] complains of chest pain since one hour ago. The patient rates the pain _/10 in severity. Symptoms aggravated by nothing. Symptoms alleviated by nothing. Patient reports shortness of breath , nausea, vomiting x2, dizziness, and pedal edema. Patient admits to smoking 2 packs a day. Patient admits to drinking. Patient has been seen in ED multiple times these last 2 months for chest pain. - History of Current Complaint Time Seen by Provider: 07/04/18 20:27 Hx Obtained From: Patient Onset/Duration: Started Hours Ago - 1, Still Present Timing: Constant Aggravating Factor(s): Nothing Alleviating Factor(s): Nothing Associated Signs and Symptoms: Positive: Other: - shortness of breath, nausea, vomiting x2, dizziness, and pedal edema - Additional Pertinent History Primary Care Physician: ASHLI - Allergy/Home Medications Allergies/Adverse Reactions: Allergies Allergy/AdvReac Type Severity Reaction Status Date / Time No Known Allergies Allergy Verified 07/03/18 11:38 PMH/Surg Hx/FS Hx/Imm Hx Previously Healthy: No Endocrine/Hematology History: Denies: Hx Anticoagulant Therapy, Hx Diabetes Cardiovascular History: Reports: Hx Angina, Hx Hypertension Denies: Hx Coronary Artery Disease, Hx Hypercholesterolemia, Hx Myocardial Infarction, Other Cardiovascular Problems/Disorders Respiratory History: Reports: Hx Chronic Obstructive Pulmonary Disease (COPD) Comment Only: Hx Asthma - IN CHILDHOOD ONLY GI History: 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, Hx Hiatal Hernia History: Denies: Hx Chronic Renal Failure, Hx Dialysis Sensory History: Denies: Hx Contacts or Glasses, Hx Eye Prosthesis, Hx Hearing Aid Opthamlomology History: Denies: Hx Contacts or Glasses, Hx Eye Prosthesis Neurological History: Denies: Hx Developmental Delay Psychiatric History: Reports: Hx Anxiety, Hx Depression, Hx Substance Abuse - EtOH Denies: Hx Attention Deficit Hyperactivity Disorder, Hx Autism, Hx Eating Disorder, Hx Panic Disorder, Hx Post Traumatic Stress Disorder, Hx Inpatient Treatment, Hx Community Mental Health Tx, Hx Schizophrenia, Hx Bipolar Disorder , Hx Suicide Attempt, Hx of Violent Episodes Against Others, Other Psychiatric Issues/Disorders - Surgical History Surgery Procedure, Year, and Place: inguinal hernia repair - Family History Known Family History: Positive: Hypertension, Diabetes - mother, Other - HLD Negative: Cardiac Disease - Social History Alcohol Use: Daily Alcohol Amount: ~one 12-pack of beer/day Hx Substance Use: No Substance Use Type: Reports: None Hx Tobacco Use: Yes Smoking Status (MU): Heavy Every Day Tobacco Smoker Type: Cigarettes Amount Used/How Often: 2 ppd Review of Systems Positive: Chest Pain Positive: Shortness Of Breath Positive: Vomiting - x2, Nausea Positive: Edema - pedal Neurological: Other - Dizziness All Other Systems Reviewed And Are Negative: Yes Physical Exam - Summary Physical Exam Summary: Appearance: Well appearing, no pain distress Skin: chronic diffuse skin rash Head/face: normal Eyes: EOMI, PATTI ENT: normal Neck: supple, non-tender Respiratory: CTA, breath sounds present Cardiovascular: RRR, pulses symmetrical Abdomen: non-tender, soft Musculoskeletal: normal, strength/ROM intact, pedal edema Neuro: normal, sensory motor intact, A&Ox3 Triage Information Reviewed: Yes Vital Signs Reviewed: Yes Diagnostics - Laboratory Result Diagrams: 07/04/18 20:57 07/04/18 20:57 Lab Statement: Any lab studies that have been ordered have been reviewed, and results considered in the medical decision making process. - Radiology CXR Radiology Interpretation Completed By: ED Physician Summary of Radiographic Findings: Negative. Pending official report. - EKG 2033 Cardiac Rate: NL - 84 BPM EKG Rhythm: Sinus Rhythm Summary of EKG Findings: No acute changes Chest Pain Course/Dx - Course Course Of Treatment: 53 year old M brought in by ambulance to [facility] complains of chest pain, shortness of breath, nausea, vomiting x2, dizziness, and pedal edema since one hour ago. Patient has been seen in ED multiple times these last 2 months for chest pain. EMS administered aspirin. CXR is negative. EKG shows no acute changes. Bloodwork obtained. Patient will be signed out to Dr. Murcia , awaiting labs, pending disposition. - Chest Pain Differential Diagnosis/HQI/PQRI: ACS, Chest Wall - Diagnoses Provider Diagnoses: Chest pain - Provider Notifications Discussed Care Of Patient With: Erika Field Time Discussed With Above Provider: 21:45 Instructed by Provider To: Other - Discussed with Dr. Field, hospitalist, who would like to give patient GI cocktail and see if he improves Discharge - Sign-Out/Discharge Documenting (check all that apply): Sign-Out Patient Signing out patient TO: Robert Murcia - awaiting labs, pending disposition Patient Received Moderate/Deep Sedation with Procedure: No - Discharge Plan Condition: Stable Referrals: No Primary Care Phys,NOPCP [Primary Care Provider] - - Billing Disposition and Condition Condition: STABLE - Attestation Statements Document Initiated by Scribe: Yes Documenting Scribe: Ofe Delgado Provider For Whom Scribe is Documenting (Include Credential): Jourdan Victoria MD Scribe Attestation: IOfe, scribed for Jourdan Victoria MD on 07/04/18 at 2154. Scribe Documentation Reviewed: Yes Provider Attestation: The documentation as recorded by the mickibOfe barclay accurately reflects the service I personally performed and the decisions made by , Jourdan Victoria MD Status of Scribe Document: Viewed
[2018-07-04 21:10] LABS: Hematocrit 25 % (36-46); Hemoglobin 8.6 g/dL (14.0-18.0); Mean Corpuscular HGB Conc 35 g/dL (31-36); Mean Corpuscular Hemoglobin 34 pg (27-31); Mean Corpuscular Volume 98 fL (80-94); Red Blood Count 2.51 10^6 /uL (4.18-5.48); Red Cell Distribution Width 15 % (10.5-15); White Blood Count 11.6 10^3/uL (3.5-10.8)
[2018-07-04 21:23] LABS: Albumin 2.9 g/dL (3.2-5.2); Albumin/Globulin Ratio 1.2 (1-3); BUN/Creatinine Ratio 9.1 (8-20); EGFR Non-African American 78.5 (>60); Globulin 2.5 g/dL (2-4); Potassium 3.8 mmol/L (3.5-5.0); Total Bilirubin 1.2 mg/dL (0.2-1.0); Total Protein 5.4 g/dL (6.4-8.9)
[2018-07-04 21:25] LABS: Troponin I 0.03 ng/mL (<0.04)
[2018-07-04 21:26] LABS: Mean Platelet Volume 7.3 fL (7.4-10.4); Platelet Count 189 10^3/uL (150-450)
[2018-07-04 21:27] LABS: ABS Basophils 0 10^3/ul (0-0.2); ABS Eosinophils 0.1 10^3/ul (0-0.6); ABS Monocytes 1.3 10^3/ul (0-0.8); ABS Neutrophils 5.2 10^3/ul (1.5-7.7); ABS Nucleated RBC 0 10^3/ul; Eosinophil % 0.5 %; Nucleated Red Blood Cells % 0.2
--- OUTSIDE RECORDS SUMMARY | 2018-07-04 21:31 | XMS REPORT | Continuity of Care Document ---
:1965 External Reference #:[id number] Author Name Lori Garibay Care Team Providers Name Role Phone Kathleen Christian DO Primary Care Physician Unavailable Payers Date Identification Numbers Payment Provider Subscriber Policy Number: [id number] Medicare Arsalan Person PayID: [id number] [address] [place] [address] Policy Number: [id number] Medicaid Arsalan Person Group Name: 1 1 [address] PayID: [id number] [place] [address] Advance Directives Description No Information Available Problems Description No Information Family History Description No Information Available Social History Type Date Description Comments Sex Unknown Tobacco Use Start: Unknown Heavy tobacco smoker (more than 10 2 packs a day. cigarettes/day) Smoking Status Reviewed: 07/04/18 Heavy tobacco smoker (more than 10 2 packs a day. cigarettes/day) Allergies, Adverse Reactions, Alerts Description No Known Drug Allergies Medications Active Medications SIG Qnty Indications Ordering Provider Date Albuterol Sulfate HFA one puff every 6 Unknown hours 108(90Base) mcg/Act Aerosol Amlodipine Besylate 1 by mouth every 30tabs Kathleen Senner, DO day 10mg Tablets Clonidine HCL take 1 tablet by 60tabs Kathleen Senner, DO 0.3mg mouth twice Tablets daily . Famotidine 1 tab by mouth 60tabs Kathleen Senner, DO 20mg Tablets twice a day Folic Acid 1 by mouth every Unknown 1mg Tablets day Magnesium-Oxide 1 by mouth every 30tabs Kathleen Senner, DO day 400(241.3mg) mg Tablets Multi Vitamin 1 by mouth every Unknown Tablets day Thiamine HCL 1 by mouth every Unknown 100mg day Tablets History Medications Gabapentin 1 by mouth every Unknown - 07/04/2018 300mg Capsules evening Immunizations Description No Information Available Vital Signs Date Vital Result Comment 07/04/2018 11:34am Height 68 inches 5'8" Weight 153.00 lb Heart Rate 84 /min BP Systolic 168 mmHg BP Diastolic 90 mmHg Respiratory Rate 18 /min Body Temperature 98.3 F O2 % BldC Oximetry 98 % BMI (Body Mass Index) 23.3 kg/m2 Results Description No Information Available Procedures Date Code Description Status 07/01/2018 86338 Treadmill Interp/Report Only Completed 07/01/2018 55819 Stress Test Supervsn W/Out I/R Completed 06/26/2018 57417 ECHO Transthorasic Realtime 2D W Doppler & Color Flow Hosp Completed 05/28/2018 89387 ECHO Transthorasic Realtime 2D W Doppler & Color Flow Hosp Completed Encounters Type Date Location Provider Dx Diagnosis Office Visit 05/11/2018 [facility] Devin Crawford F10.239 Alcohol dependence 9:58a kaveh Dangelo MD with withdrawal, Hospitalists unspecified K70.0 Alcoholic fatty liver E83.42 Hypomagnesemia Office Visit 05/10/2018 [facility] Devin Crawford F10.239 Alcohol 9:57a kaveh Dangelo MD dependence with Hospitalists withdrawal, unspecified K70.30 Alcoholic cirrhosis of liver without ascites I10 Essential (primary) hypertension F17.200 Nicotine dependence, unspecified, uncomplicated Office Visit 05/09/2018 [facility] Alison Victorino, F10.239 Alcohol 9:57a kaveh Dangelo NP dependence with Hospitalists withdrawal, unspecified I16.0 Hypertensive urgency E87.2 Acidosis R29.6 Repeated falls Plan of Treatment Future Appointment(s):07/29/2018 9:20 am - Kathleen Christian DO at [facility]07/04/2018 - Kathleen Christian DOK70.0 Alcoholic fatty liverFollow up:come back in a month or sooner if rfavuaR91 Essential (primary) hypertensionRecommendations:I have refilled your cqphonucajnebE67.02 Shortness of breathNew Orders:PFTW/Spirometry Vol Pre/Post Bronchdilat Dlco Complete, Ordered: 07/04/18Recommendations:try the albuterol inhaler you may need another inhaler and/or steroids, but we will check the Pulmonary Function Tests first
[2018-07-04] MEDS ORDERED: Lidocaine 2% VISCOUS* 15 ML UDC PO ONE (21:44)
[2018-07-04] MEDS ORDERED: Al Hydrox/Mg Hydrox/Simet LIQ* 30 ML UDC PO ONE (21:45)
[2018-07-04] MEDS ORDERED: SCOP/HYOS/ATR/PB(NF) 10 ML UDC PO ONE (21:46)
[2018-07-04] MEDS ORDERED: Famotidine TAB* 20 MG PO ONE (22:02)
[2018-07-04] MEDS ORDERED: Iohexol 350* (CONTRAST) 500 ML MDV IV ONE (22:02)
[2018-07-04] MEDS ORDERED: Sucralfate TAB* 1 GM PO ONE (22:02)
--- NOTE | 2018-07-04 22:05 | ED ---
Progress - Progress Note Progress Note: Receiving sign out from Dr. Victoria at shift change, pending labs. Pt's condition has been stable. He will be discharged with final dx of constant CP, gastritis, and alcoholism. Re-Evaluation - Re-Evaluation First Eval Re-Evaluation Time: 22:05 Change: Unchanged Comment: Pt states that hes had constant CP since his cardiac stress test. He denies any SOB. PMHx alcohol abuse, pancreatitis. Second Eval Re-Evaluation Time: 23:10 Change: Improved Comment: Pt feels better however he is refusing discharge. Spoke with nursing supervisor feed mill and she will work on his disposition. Course/Dx - Course Course Of Treatment: Patient with constant chest pain for days which included having a stress test during these symptoms. He is frequent visitor to the ER for similar complaints. His troponin is negative today and actually less than what he has been in the past. Patient was feeling better after GI treatment. He is a heavy drinker and likely experiencing GERD/gastritis. Despite feeling better he refused discharge and so at the nursing supervisor feed mill was contacted. She addressed the patient and they have agreed that he will discharge. He has done so in stable condition. He is no longer intoxicated. A safe ride was obtained. - Diagnoses Provider Diagnoses: Chest pain, Alcoholism, Gastritis Discharge - Sign-Out/Discharge Documenting (check all that apply): Patient Departure - Discharge, Receiving Sign-Out Receiving patient FROM: Jourdan Victoria Patient Received Moderate/Deep Sedation with Procedure: No - Discharge Plan Condition: Improved Disposition: HOME Prescriptions: Famotidine TAB* [Pepcid 20 MG TAB*] 20 mg PO BID #60 tab Pantoprazole TAB * [Protonix TAB*] 40 mg PO DAILY #30 tab Sucralfate TAB* [Carafate*] 1 gm PO QID #60 tab Patient Education Materials: Chest Pain (ED), Gastritis (ED), Abuse of Alcohol (ED) Referrals: [facility],. [Z.BUSINESS, APPLICATION, OTHER] - Additional Instructions: Call first thing in the morning to schedule your follow-up with [facility]. You have been given information on the investment counselor which helps with alcohol recovery. Do not drink to excess. Take medications as prescribed. Return if worse, new symptoms or other concerns. - Billing Disposition and Condition Condition: IMPROVED Disposition: Home - Attestation Statements Document Initiated by Korin: Yes Documenting Scribe: Rachael Yeager Provider For Whom Scribe is Documenting (Include Credential): Robert Murcia MD Scribe Attestation: Rachael Liang, scribed for Robert Murcia MD on 07/05/18 at 0236. Scribe Documentation Reviewed: Yes Provider Attestation: The documentation as recorded by the scribeRachael accurately reflects the service I personally performed and the decisions made by Robert shrestha MD Status of Scribe Document: Viewed
[2018-07-04 23:54] VITALS: BP 191/83
== END 2018-07-04 23:59 | disposition home or self-care (01) ==
LOC: ED 20:24
DX: R07.9 Chest pain, unspecified (principal); I10 Essential (primary) hypertension; J44.9 Chronic obstructive pulmonary disease, unspecified; K70.30 Alcoholic cirrhosis of liver without ascites; K44.9 Diaphragmatic hernia without obstruction or gangrene; F41.9 Anxiety disorder, unspecified; F32.9 Major depressive disorder, single episode, unspecified; F17.210 Nicotine dependence, cigarettes, uncomplicated
CPT/HCPCS: 36415; 71045; 80053; 80320; 83690; 83880; 84484; 85025; 93005; 99284; A9270-GY; G0480

== ENCOUNTER → 2018-07-11 19:46 | Emergency (ER) | payer MEDICARE ==
[~2018-07-11 19:46] MED LIST changes: +Al Hydrox/Mg Hydrox/Simet LIQ* 30 ML UDC PO ONE; -Albuterol 2.5 MG/3 ML NEB.SOL* (0.083%) INH ONE; -Albuterol HFA INHALER* 8 gm MDI INH ONE; -Albuterol/Ipratropium NEB.SOL* Albuterol 2.5 MG/Ipratropium 0.5 MG 3 ML INH ONE; +Famotidine TAB* 20 MG PO ONE; +Labetalol TAB* 200 MG PO ONE; +Lidocaine 2% VISCOUS* 15 ML UDC PO ONE; -NS 0.9% 1000 ML** 1,000 ML IV ONE; +Pantoprazole IV* 40 MG IV ONE; -Potassium Chlor TAB* 20 MEQ TAB.ER PO ONE; +Sucralfate TAB* 1 GM PO ONE; +cloNIDine TAB* 0.1 MG PO ONE
--- NOTE | 2018-07-11 20:09 | ED ---
HPI Chest Pain - HPI Summary HPI Summary: This patient is a 53 year old M presenting to [facility] with a chief complaint of mid-thoracic CP since 2 hours ago. He was recently discharged from [facility] and reports that "nothing has changed" since his last visit. The patient rates the pain 6/10 in severity. Patient reports SOB. Patient was drinking a couple hours ago to knock out the pain. He had a stress test on 07/04/18 and has an outpatient visit scheduled soon. He is a smoker and chronic alcoholic. - History of Current Complaint Chief Complaint: EDDizziness Time Seen by Provider: 07/11/18 19:59 Hx Obtained From: Patient Onset/Duration: Started Hours Ago, Still Present Timing: Constant, Lasting Hours Initial Severity: Moderate Current Severity: Moderate Pain Intensity: 6 Pain Scale Used: 0-10 Numeric Chest Pain Location: Mid Sternal Associated Signs and Symptoms: Positive: Chest Pain, Shortness of Breath - Additional Pertinent History Primary Care Physician: ASHLI - Allergy/Home Medications Allergies/Adverse Reactions: Allergies Allergy/AdvReac Type Severity Reaction Status Date / Time No Known Allergies Allergy Verified 07/03/18 11:38 PMH/Surg Hx/FS Hx/Imm Hx Endocrine/Hematology History: Denies: Hx Anticoagulant Therapy, Hx Diabetes Cardiovascular History: Reports: Hx Angina, Hx Hypertension Denies: Hx Coronary Artery Disease, Hx Hypercholesterolemia, Hx Myocardial Infarction, Other Cardiovascular Problems/Disorders Respiratory History: Reports: Hx Chronic Obstructive Pulmonary Disease (COPD) Comment Only: Hx Asthma - IN CHILDHOOD ONLY GI History: 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, Hx Hiatal Hernia History: Denies: Hx Chronic Renal Failure, Hx Dialysis Sensory History: Denies: Hx Contacts or Glasses, Hx Eye Prosthesis, Hx Hearing Aid Opthamlomology History: Denies: Hx Contacts or Glasses, Hx Eye Prosthesis Neurological History: Denies: Hx Developmental Delay Psychiatric History: Reports: Hx Anxiety, Hx Depression, Hx Substance Abuse - EtOH Denies: Hx Attention Deficit Hyperactivity Disorder, Hx Autism, Hx Eating Disorder, Hx Panic Disorder, Hx Post Traumatic Stress Disorder, Hx Inpatient Treatment, Hx Community Mental Health Tx, Hx Schizophrenia, Hx Bipolar Disorder , Hx Suicide Attempt, Hx of Violent Episodes Against Others, Other Psychiatric Issues/Disorders - Surgical History Surgery Procedure, Year, and Place: inguinal hernia repair Infectious Disease History: Yes Infectious Disease History: Denies: Traveled Outside the [place] in Last 30 Days - Family History Known Family History: Positive: Hypertension, Diabetes - mother, Other - HLD Negative: Cardiac Disease - Social History Alcohol Use: Daily Alcohol Amount: ~one 12-pack of beer/day Hx Substance Use: No Substance Use Type: Reports: None Hx Tobacco Use: Yes Smoking Status (MU): Heavy Every Day Tobacco Smoker Type: Cigarettes Amount Used/How Often: 2 ppd Review of Systems Positive: Chest Pain - midsternal Positive: Shortness Of Breath All Other Systems Reviewed And Are Negative: Yes Physical Exam - Summary Physical Exam Summary: Appearance: Poorly kempt and has an order. Skin: Seborrheic dermatitis all over his head. Head/face: normal Eyes: EOMI, PATTI ENT: mucous membranes moist Neck: supple, non-tender Respiratory: CTA, breath sounds present Cardiovascular: RRR, pulses symmetrical Abdomen: non-tender, soft Bowel Sounds: present Musculoskeletal: normal, strength/ROM intact Neuro: normal, sensory motor intact, A&Ox3 Triage Information Reviewed: Yes Vital Signs On Initial Exam: Initial Vitals Temp Pulse Resp BP Pulse Ox 98.6 F 88 14 219/104 100 07/11/18 19:54 07/11/18 19:54 07/11/18 19:54 07/11/18 19:54 07/11/18 19:54 Vital Signs Reviewed: Yes Diagnostics - Vital Signs Vital Signs Temp Pulse Resp BP Pulse Ox 07/11/18 19:54 98.6 F 88 14 219/104 100 - Laboratory Lab Statement: Any lab studies that have been ordered have been reviewed, and results considered in the medical decision making process. - EKG 20:33 Cardiac Rate: NL - 80 bpm EKG Rhythm: Sinus Rhythm ST Segment: Normal Summary of EKG Findings: Normal axis, normal interval, single PAC. Chest Pain Course/Dx - Course Course Of Treatment: Patient is very well-known to the ER with frequent visits over the last 2 weeks. He is a chronic alcoholic and is having chronic chest pain related to his alcohol use and GERD/gastritis. He had recent stress test that was negative. He had several rule out's for cardiac disease. He was treated with GI meds here with relief. 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 Blood pressure is elevated due to the medication noncompliance. He was treated with clonidine and labetalol orally here. - Chest Pain Differential Diagnosis/HQI/PQRI: ACS, GI Disease - Diagnoses Provider Diagnoses: Alcoholic gastritis, Chronic chest pain, Alcoholism, HTN (hypertension) Discharge - Sign-Out/Discharge Documenting (check all that apply): Patient Departure - D/C home Patient Received Moderate/Deep Sedation with Procedure: No - Discharge Plan Condition: Improved Disposition: HOME Patient Education Materials: Gastritis (ED), Alcohol Use Disorder (ED) Referrals: [facility] [Outside] [facility] [Outside] No Primary Care Phys,NOPCP [Primary Care Provider] - Additional Instructions: Follow-up with cardiology as scheduled. Cut back on her drinking. You have been given handouts to help with her drinking including for the [place]. Continue medications previously prescribed. Call in the morning for follow-up with the [facility]. - Billing Disposition and Condition Condition: IMPROVED Disposition: Home - Attestation Statements Document Initiated by Korin: Yes Documenting Scribe: Bismark Torres Provider For Whom Scribe is Documenting (Include Credential): Robert Murcia MD Scribe Attestation: Bismark Liang, scribed for Robert Murcia MD on 07/12/18 at 0313. Scribe Documentation Reviewed: Yes Provider Attestation: The documentation as recorded by the Bismark lennon accurately reflects the service I personally performed and the decisions made by Robert shrestha MD Status of Scribe Document: Viewed
[2018-07-11 21:26] VITALS: BP 200/96
== END | disposition home or self-care (01) ==
LOC: ED 19:46
DX: K29.20 Alcoholic gastritis without bleeding (principal); R07.9 Chest pain, unspecified; G89.29 Other chronic pain; F10.20 Alcohol dependence, uncomplicated; I10 Essential (primary) hypertension; J44.9 Chronic obstructive pulmonary disease, unspecified; K70.30 Alcoholic cirrhosis of liver without ascites; K44.9 Diaphragmatic hernia without obstruction or gangrene; F41.9 Anxiety disorder, unspecified; F32.9 Major depressive disorder, single episode, unspecified; F17.210 Nicotine dependence, cigarettes, uncomplicated
CPT/HCPCS: 93005; 96374; 99283; A9270-GY

== ENCOUNTER 2018-07-15 21:56 | Emergency (ER) | payer MEDICARE ==
[2018-07-15 23:43] LABS: Hematocrit 27 % (42-52); Hemoglobin 9.4 g/dL (14.0-18.0); Mean Corpuscular HGB Conc 35 g/dL (31-36); Mean Corpuscular Hemoglobin 35 pg (27-31); Mean Corpuscular Volume 101 fL (80-94); Mean Platelet Volume 6.3 fL (7.4-10.4); Platelet Count 374 10^3/uL (150-450); Red Blood Count 2.66 10^6 /uL (4.18-5.48); Red Cell Distribution Width 17 % (10.5-15); White Blood Count 8.9 10^3/uL (3.5-10.8)
[2018-07-15 23:54] LABS: Albumin 3.2 g/dL (3.2-5.2); Albumin/Globulin Ratio 1.2 (1-3); BUN/Creatinine Ratio 8.7 (8-20); C Reactive Protein 2.42 mg/L (<8.01); Calcium 8.4 mg/dL (8.6-10.3); EGFR African American 89.7 (>60); EGFR Non-African American 74.1 (>60); Globulin 2.7 g/dL (2-4); Potassium 3.2 mmol/L (3.5-5.0); Total Bilirubin 0.7 mg/dL (0.2-1.0); Total Protein 5.9 g/dL (6.4-8.9)
[2018-07-16 00:19] LABS: ABS Basophils 0.1 10^3/ul (0-0.2); ABS Eosinophils 0.1 10^3/ul (0-0.6); ABS Lymphocytes 3.4 10^3/ul (1.0-4.8); ABS Monocytes 0.9 10^3/ul (0-0.8); ABS Neutrophils 4.4 10^3/ul (1.5-7.7); Lymphocyte % 37.9 %; Nucleated Red Blood Cells % 0.1
--- NOTE | 2018-07-16 00:40 | ED ---
Head Injury - HPI Summary HPI Summary: Patient with history of EtOH and chronic falls, complains of fall today with head injury when his head struck the railing across his forehead. Positive LOC , active headache. LOC for a couple minutes per patient who was told by family. Alert and oriented, responding up appropriately. Patient denies vision change, dental trauma, N/V, focal deficits, fever, cough, sore throat, CP , SOB, N/V/D, bowel pain, change in urine, change in BM. - History Of Current Complaint Chief Complaint: EDFall Stated Complaint: FALL, HEAD INJURY PER PT Time Seen by Provider: 07/15/18 22:34 Hx Obtained From: Patient Mechanism Of Injury: Fall From A Standing Position Onset/Duration: Started Hours Ago Onset of Pain: Immediate Severity Currently: Severe Severity Initially: Severe Pain Intensity: 8 Pain Scale Used: 0-10 Numeric Location of Head Injury: Frontal Character: Throbbing - No penile out Associated Signs And Symptoms: LOC (Time In Secs./Mins/Hrs), Headache - Allergies/Home Medications Allergies/Adverse Reactions: Allergies Allergy/AdvReac Type Severity Reaction Status Date / Time No Known Allergies Allergy Verified 07/15/18 23:01 Home Medications: Home Medications Hydrochlorothiazide TAB* [Hydrodiuril TAB*] 25 mg PO DAILY 07/15/18 [History Confirmed 07/15/18] PMH/Surg Hx/FS Hx/Imm Hx Endocrine/Hematology History: Denies: Hx Anticoagulant Therapy, Hx Diabetes Cardiovascular History: Reports: Hx Angina, Hx Hypertension Denies: Hx Coronary Artery Disease, Hx Hypercholesterolemia, Hx Myocardial Infarction, Other Cardiovascular Problems/Disorders Respiratory History: Reports: Hx Chronic Obstructive Pulmonary Disease (COPD) Comment Only: Hx Asthma - IN CHILDHOOD ONLY GI History: 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, Hx Hiatal Hernia History: Denies: Hx Chronic Renal Failure, Hx Dialysis Sensory History: Denies: Hx Contacts or Glasses, Hx Eye Prosthesis, Hx Hearing Aid Opthamlomology History: Denies: Hx Contacts or Glasses, Hx Eye Prosthesis Neurological History: Denies: Hx Developmental Delay Psychiatric History: Reports: Hx Anxiety, Hx Depression, Hx Substance Abuse - EtOH Denies: Hx Attention Deficit Hyperactivity Disorder, Hx Autism, Hx Eating Disorder, Hx Panic Disorder, Hx Post Traumatic Stress Disorder, Hx Inpatient Treatment, Hx Community Mental Health Tx, Hx Schizophrenia, Hx Bipolar Disorder , Hx Suicide Attempt, Hx of Violent Episodes Against Others, Other Psychiatric Issues/Disorders - Surgical History Surgery Procedure, Year, and Place: inguinal hernia repair Infectious Disease History: No Infectious Disease History: Denies: Traveled Outside the [place] in Last 30 Days - Family History Known Family History: Positive: Hypertension, Diabetes - mother, Other - HLD Negative: Cardiac Disease - Social History Alcohol Use: Daily Alcohol Amount: ~one 12-pack of beer/day Hx Substance Use: No Substance Use Type: Reports: None Hx Tobacco Use: Yes Smoking Status (MU): Heavy Every Day Tobacco Smoker Type: Cigarettes Amount Used/How Often: 2 ppd Review of Systems Constitutional: Negative Eyes: Negative ENT: Negative Cardiovascular: Negative Respiratory: Negative Gastrointestinal: Negative Genitourinary: Negative Musculoskeletal: Negative Skin: Negative Positive: Headache Psychological: Normal All Other Systems Reviewed And Are Negative: Yes Physical Exam - Summary Physical Exam Summary: Patient alert and oriented. Responding appropriately. No indication of intoxication. Neuro exam normal. Full range of motion of jaw and neck. No evidence of trauma to mouth face or head. No pain with palpation of neck, back , chest wall, abdomen. Patient moves all 4 extremities freely. Triage Information Reviewed: Yes Vital Signs On Initial Exam: Initial Vitals Temp Pulse Resp BP Pulse Ox 96.4 F 84 18 203/105 99 07/15/18 21:57 07/15/18 21:57 07/15/18 21:57 07/15/18 21:57 07/15/18 21:57 Vital Signs Reviewed: Yes Appearance: Positive: Well-Appearing Skin: Positive: Warm Head/Face: Positive: Normal Head/Face Inspection Eyes: Positive: Normal ENT: Positive: Normal ENT inspection Dental: Negative: Dental Fracture @, Bleeding Neck: Positive: Supple Respiratory/Lung Sounds: Positive: Clear to Auscultation Cardiovascular: Positive: Normal Abdomen Description: Positive: Nontender Musculoskeletal: Positive: Normal Neurological: Positive: Normal Psychiatric: Positive: Normal AVPU Assessment: Alert - Nirali Coma Scale Best Eye Response: 4 - Spontaneous Best Motor Response: 6 - Obeys Commands Best Verbal Response: 5 - Oriented Coma Scale Total: 15 Diagnostics - Vital Signs Vital Signs Temp Pulse Resp BP Pulse Ox 07/15/18 23:18 60 183/87 95 07/15/18 23:03 60 20 191/88 95 07/15/18 23:00 60 19 96 07/15/18 22:48 62 19 180/87 96 07/15/18 22:42 67 21 192/94 97 07/15/18 22:41 66 21 201/93 97 07/15/18 22:24 68 97 07/15/18 21:57 96.4 F 84 18 203/105 99 - Laboratory Lab Results: Lab Results 07/15/18 07/15/18 Range/Units 23:28 23:28 WBC 8.9 (3.5-10.8) 10^3/uL RBC 2.66 L (4.18-5.48) 10^6 /uL Hgb 9.4 L (14.0-18.0) g/dL Hct 27 L (42-52) % MCV 101 H (80-94) fL MCH 35 H (27-31) pg MCHC 35 (31-36) g/dL RDW 17 H (10.5-15) % Plt Count 374 (150-450) 10^3/uL MPV 6.3 L (7.4-10.4) fL Neut % (Auto) 49.9 % Lymph % (Auto) 37.9 % [place] % (Auto) 10.4 % Eos % (Auto) 1.0 % Baso % (Auto) 0.8 % Absolute Neuts (auto) 4.4 (1.5-7.7) 10^3/ul Absolute Lymphs (auto) 3.4 (1.0-4.8) 10^3/ul Absolute Monos (auto) 0.9 H (0-0.8) 10^3/ul Absolute Eos (auto) 0.1 (0-0.6) 10^3/ul Absolute Basos (auto) 0.1 (0-0.2) 10^3/ul Absolute Nucleated RBC 0.0 10^3/ul Nucleated RBC % 0.1 Sodium 130 L (135-145) mmol/L Potassium 3.2 L (3.5-5.0) mmol/L Chloride 98 L (101-111) mmol/L Carbon Dioxide 22 (22-32) mmol/L Anion Gap 10 (2-11) mmol/L BUN 9 (6-24) mg/dL Creatinine 1.04 (0.67-1.17) mg/dL Est GFR ( Amer) 89.7 (>60) Est GFR (Non-Af Amer) 74.1 (>60) BUN/Creatinine Ratio 8.7 (8-20) Glucose 92 (70-100) mg/dL Calcium 8.4 L (8.6-10.3) mg/dL Total Bilirubin 0.70 (0.2-1.0) mg/dL AST 27 (13-39) U/L ALT 18 (7-52) U/L Alkaline Phosphatase 319 H (34-104) U/L C-Reactive Protein 2.42 (<8.01) mg/L Total Protein 5.9 L (6.4-8.9) g/dL Albumin 3.2 (3.2-5.2) g/dL Globulin 2.7 (2-4) g/dL Albumin/Globulin Ratio 1.2 (1-3) Lipase 26 (11.0-82.0) U/L Result Diagrams: 07/15/18 23:28 07/15/18 23:28 Lab Statement: Any lab studies that have been ordered have been reviewed, and results considered in the medical decision making process. Head Injury Course/Dx Course Of Treatment: Patient with history of EtOH and chronic falls, complains of fall today with head injury when his head struck the railing across his forehead. Positive LOC, active headache. LOC for a couple minutes per patient who was told by family. Alert and oriented, responding up appropriately. Patient denies vision change, dental trauma, N/V, focal deficits, fever, cough, sore throat, CP, SOB, N/V/D, bowel pain, change in urine, change in BM. Physical exam:Patient alert and oriented. Responding appropriately. No indication of intoxication. Neuro exam normal. Full range of motion of jaw and neck. No evidence of trauma to mouth face or head. No pain with palpation of neck, back, chest wall, abdomen. Patient moves all 4 extremities freely. Elevated blood pressure with SBP 200. Patient has history of hypertension and is noncompliant with medication. Vital signs otherwise within normal limits. Labs at patient baseline. CT brain and cervical spine negative for acute process. - Diagnoses Provider Diagnoses: Fall, Head injury Discharge - Sign-Out/Discharge Documenting (check all that apply): Patient Departure Patient Received Moderate/Deep Sedation with Procedure: No - Discharge Plan Condition: Stable Disposition: HOME Patient Education Materials: Head Injury (ED) Referrals: No Primary Care Phys,NOPCP [Primary Care Provider] - [facility] [Outside] Additional Instructions: [facility] with [facility] for [facility] of recurrent [facility]. Return to the ED for any new or worsening symptoms. - Billing Disposition and Condition Condition: STABLE Disposition: Home
[2018-07-16 01:30] VITALS: BP 172/91
== END 2018-07-16 01:29 | disposition home or self-care (01) ==
LOC: ED 21:56
DX: S09.90XA Unspecified injury of head, initial encounter (principal); W01.198A Fall on same level from slipping, tripping and stumbling with subsequent striking against other object, initial encounter; I10 Essential (primary) hypertension; J44.9 Chronic obstructive pulmonary disease, unspecified; K70.30 Alcoholic cirrhosis of liver without ascites; K44.9 Diaphragmatic hernia without obstruction or gangrene; F41.9 Anxiety disorder, unspecified; F32.9 Major depressive disorder, single episode, unspecified; F17.210 Nicotine dependence, cigarettes, uncomplicated; F10.10 Alcohol abuse, uncomplicated; Z91.81 History of falling
CPT/HCPCS: 36415; 70450; 72125; 80053; 83690; 85025; 86140; 99284

== ENCOUNTER 2018-07-22 09:35 | Emergency (ER) | payer MEDICARE ==
[2018-07-22] MEDS ORDERED: cloNIDine TAB* 0.1 MG PO ONE (10:37)
[2018-07-22 10:53] LABS: ABS Lymphocytes 1.7 10^3/ul (1.0-4.8); ABS Monocytes 0.9 10^3/ul (0-0.8); ABS Neutrophils 7.2 10^3/ul (1.5-7.7); Eosinophil % 0.2 %; Hematocrit 31 % (42-52); Hemoglobin 10.8 g/dL (14.0-18.0); Lymphocyte % 17.1 %; Mean Corpuscular HGB Conc 35 g/dL (31-36); Mean Corpuscular Hemoglobin 35 pg (27-31); Mean Corpuscular Volume 101 fL (80-94); Mean Platelet Volume 5.9 fL (7.4-10.4); Nucleated Red Blood Cells % 0.2; Platelet Count 273 10^3/uL (150-450); Red Blood Count 3.06 10^6 /uL (4.18-5.48); Red Cell Distribution Width 15 % (10.5-15); White Blood Count 9.8 10^3/uL (3.5-10.8)
[2018-07-22 10:56] LABS: INR 0.93 (0.82-1.09)
[2018-07-22 11:11] LABS: ALT 18 U/L (7-52); AST 33 U/L (13-39); Albumin 3.3 g/dL (3.2-5.2); Albumin/Globulin Ratio 1.2 (1-3); Alkaline Phosphatase 346 U/L (34-104); Anion Gap 8 mmol/L (2-11); BUN/Creatinine Ratio 7.8 (8-20); Blood Urea Nitrogen 8 mg/dL (6-24); CO2 Carbon Dioxide 25 mmol/L (22-32); Calcium 8.7 mg/dL (8.6-10.3); Chloride 100 mmol/L (101-111); EGFR African American 90.7 (>60); Globulin 2.7 g/dL (2-4); Glucose 110 mg/dL (70-100); Potassium 4.2 mmol/L (3.5-5.0); Sodium 133 mmol/L (135-145)
[2018-07-22 11:25] LABS: Urine Appearance Clear; Urine Bacteria Absent (Absent); Urine Bilirubin Negative (Negative); Urine Blood Negative (Negative); Urine Color Yellow; Urine Glucose Negative (Negative); Urine Ketones Negative (Negative); Urine Nitrite Negative (Negative); Urine Protein 1+(30 mg/dL) (Negative); Urine Red Blood Cell Trace(0-2/hpf) (Absent); Urine Squamous Epithelial Cell Present (Absent); Urine Urobilinogen Negative (Negative); Urine White Blood Cell Trace(0-5/hpf) (Absent)
[2018-07-22 11:26] LABS: Alcohol < 10 mg/dL (<10)
[2018-07-22 11:36] LABS: Urine Benzodiazepine Screen None Detected (None Detect); Urine Opiates Screen None Detected (None Detect)
[2018-07-22] MEDS ORDERED: NS 0.9% 1000 ML** 1,000 ML IV ONE (11:45)
--- NOTE | 2018-07-22 12:19 | ED ---
Dizziness - HPI Summary HPI Summary: patient is a 53-year-old frequent visitor to the ED presenting today with chief complaint of weakness and subsequent falls for the past few weeks. He states he has been seen here since then, however continues to have the symptoms. He does continue to drink alcohol. He denies any alcohol use this morning, last intake was yesterday. He endorses CP, SOB which has been intermittent x several mos. He has had multiple cardiac workups, all which were negative including stress test. He was recently placed on hydrochlorithiazide for HTN and he feels this may be contributory, however has been having these sxs prior to the initiation of this medication. - History Of Current Complaint Chief Complaint: EDDizziness Stated Complaint: DIZZINESS PER PT Time Seen by Provider: 07/22/18 09:53 Hx Obtained From: Patient Timing: Constant Severity Initially: Moderate Severity Currently: Moderate Character: Lightheaded, Dizzy Aggravating Factor(s): Nothing Alleviating Factor(s): Nothing Associated Signs And Symptoms: Negative: Nausea, Vomiting, Diarrhea, Diaphoresis , Unsteady Gait, Visual Changes, Slurred Speech - Risk Factors Cardiac Risk Factors: Negative CVA Risk Factor: Negative - Allergies/Home Medications Allergies/Adverse Reactions: Allergies Allergy/AdvReac Type Severity Reaction Status Date / Time No Known Allergies Allergy Verified 07/15/18 23:01 PMH/Surg Hx/FS Hx/Imm Hx Previously Healthy: Yes Endocrine/Hematology History: Denies: Hx Anticoagulant Therapy, Hx Diabetes Cardiovascular History: Reports: Hx Angina, Hx Hypertension Denies: Hx Coronary Artery Disease, Hx Hypercholesterolemia, Hx Myocardial Infarction, Other Cardiovascular Problems/Disorders Respiratory History: Reports: Hx Chronic Obstructive Pulmonary Disease (COPD) Comment Only: Hx Asthma - IN CHILDHOOD ONLY GI History: 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, Hx Hiatal Hernia History: Denies: Hx Chronic Renal Failure, Hx Dialysis Sensory History: Denies: Hx Contacts or Glasses, Hx Eye Prosthesis, Hx Hearing Aid Opthamlomology History: Denies: Hx Contacts or Glasses, Hx Eye Prosthesis Neurological History: Denies: Hx Developmental Delay Psychiatric History: Reports: Hx Anxiety, Hx Depression, Hx Substance Abuse - EtOH Denies: Hx Attention Deficit Hyperactivity Disorder, Hx Autism, Hx Eating Disorder, Hx Panic Disorder, Hx Post Traumatic Stress Disorder, Hx Inpatient Treatment, Hx Community Mental Health Tx, Hx Schizophrenia, Hx Bipolar Disorder , Hx Suicide Attempt, Hx of Violent Episodes Against Others, Other Psychiatric Issues/Disorders - Surgical History Surgery Procedure, Year, and Place: inguinal hernia repair - Immunization History Hx Pertussis Vaccination: No Immunizations Up to Date: Yes Infectious Disease History: No Infectious Disease History: Denies: Traveled Outside the [place] in Last 30 Days - Family History Known Family History: Positive: Hypertension, Diabetes - mother, Other - HLD Negative: Cardiac Disease - Social History Alcohol Use: Daily Alcohol Amount: ~one 12-pack of beer/day Hx Substance Use: No Substance Use Type: Reports: None Hx Tobacco Use: Yes Smoking Status (MU): Heavy Every Day Tobacco Smoker Type: Cigarettes Amount Used/How Often: 2 ppd Review of Systems Negative: Fever, Chills, Fatigue, Skin Diaphoresis Negative: Palpitations, Chest Pain Negative: Shortness Of Breath, Cough Negative: Vomiting, Diarrhea, Nausea Genitourinary: Negative Positive: no symptoms reported, see HPI Negative: Arthralgia, Myalgia Skin: Negative Neurological: Other - dizziness Positive: Slurred Speech Psychological: Normal All Other Systems Reviewed And Are Negative: Yes Physical Exam Triage Information Reviewed: Yes Vital Signs On Initial Exam: Initial Vitals Temp Pulse Resp BP Pulse Ox 99.8 F 90 16 201/105 98 07/22/18 09:41 07/22/18 09:41 07/22/18 09:41 07/22/18 09:41 07/22/18 09:41 Vital Signs Reviewed: Yes Appearance: Positive: Ill-Appearing, Cachectic Skin: Positive: Other - icteric Head/Face: Positive: Normal Head/Face Inspection Eyes: Positive: PATTI, Conjunctiva Clear Neck: Positive: Supple, No Lymphadenopathy Respiratory/Lung Sounds: Positive: Clear to Auscultation, Breath Sounds Present Cardiovascular: Positive: RRR, Pulses are Symmetrical in both Upper and Lower Extremities Musculoskeletal: Positive: Normal, Strength/ROM Intact Neurological: Positive: Speech Normal Psychiatric: Positive: Normal, Affect/Mood Appropriate Diagnostics - Vital Signs Vital Signs Temp Pulse Resp BP Pulse Ox 07/22/18 11:42 18 175/87 07/22/18 11:12 18 183/90 07/22/18 10:46 76 20 191/97 97 07/22/18 10:33 98 07/22/18 10:13 83 17 201/112 96 07/22/18 10:00 82 19 97 07/22/18 09:48 91 16 07/22/18 09:43 94 19 201/105 97 07/22/18 09:41 99.8 F 90 20 201/105 98 - Laboratory Lab Results: Lab Results 07/22/18 07/22/18 07/22/18 Range/Units 10:39 10:39 10:39 WBC 9.8 (3.5-10.8) 10^3/uL RBC 3.06 L (4.18-5.48) 10^6 /uL Hgb 10.8 L (14.0-18.0) g/dL Hct 31 L (42-52) % MCV 101 H (80-94) fL MCH 35 H (27-31) pg MCHC 35 (31-36) g/dL RDW 15 (10.5-15) % Plt Count 273 (150-450) 10^3/uL MPV 5.9 L (7.4-10.4) fL Neut % (Auto) 72.7 % Lymph % (Auto) 17.1 % [place] % (Auto) 9.6 % Eos % (Auto) 0.2 % Baso % (Auto) 0.4 % Absolute Neuts (auto) 7.2 (1.5-7.7) 10^3/ul Absolute Lymphs (auto) 1.7 (1.0-4.8) 10^3/ul Absolute Monos (auto) 0.9 H (0-0.8) 10^3/ul Absolute Eos (auto) 0.0 (0-0.6) 10^3/ul Absolute Basos (auto) 0.0 (0-0.2) 10^3/ul Absolute Nucleated RBC 0.0 10^3/ul Nucleated RBC % 0.2 INR (Anticoag Therapy) 0.93 (0.82-1.09) Sodium 133 L (135-145) mmol/L Potassium 4.2 (3.5-5.0) mmol/L Chloride 100 L (101-111) mmol/L Carbon Dioxide 25 (22-32) mmol/L Anion Gap 8 (2-11) mmol/L BUN 8 (6-24) mg/dL Creatinine 1.03 (0.67-1.17) mg/dL Est GFR ( Amer) 90.7 (>60) Est GFR (Non-Af Amer) 75.0 (>60) BUN/Creatinine Ratio 7.8 L (8-20) Glucose 110 H (70-100) mg/dL Lactic Acid (0.5-2.0) mmol/L Calcium 8.7 (8.6-10.3) mg/dL Total Bilirubin 0.70 (0.2-1.0) mg/dL AST 33 (13-39) U/L ALT 18 (7-52) U/L Alkaline Phosphatase 346 H (34-104) U/L Troponin I 0.00 (<0.04) ng/mL Total Protein 6.0 L (6.4-8.9) g/dL Albumin 3.3 (3.2-5.2) g/dL Globulin 2.7 (2-4) g/dL Albumin/Globulin Ratio 1.2 (1-3) Urine Color Urine Appearance Urine pH (5-9) Ur Specific [place] (1.010-1.030) Urine Protein (Negative) Urine Ketones (Negative) Urine Blood (Negative) Urine Nitrate (Negative) Urine Bilirubin (Negative) Urine Urobilinogen (Negative) Ur Leukocyte Esterase (Negative) Urine WBC (Auto) (Absent) Urine RBC (Auto) (Absent) Ur Squamous Epith Cells (Absent) Urine Bacteria (Absent) Hyaline Casts (Absent) Urine Glucose (Negative) Urine Opiates Screen (None Detect) Ur Barbiturates Screen (None Detect) Ur Phencyclidine Scrn (None Detect) Ur Amphetamines Screen (None Detect) U Benzodiazepines Scrn (None Detect) Urine Cocaine Screen (None Detect) U Cannabinoids Screen (None Detect) Serum Alcohol < 10 (<10) mg/dL 07/22/18 07/22/18 07/22/18 Range/Units 10:39 11:06 11:06 WBC (3.5-10.8) 10^3/uL RBC (4.18-5.48) 10^6 /uL Hgb (14.0-18.0) g/dL Hct (42-52) % MCV (80-94) fL MCH (27-31) pg MCHC (31-36) g/dL RDW (10.5-15) % Plt Count (150-450) 10^3/uL MPV (7.4-10.4) fL Neut % (Auto) % Lymph % (Auto) % [place] % (Auto) % Eos % (Auto) % Baso % (Auto) % Absolute Neuts (auto) (1.5-7.7) 10^3/ul Absolute Lymphs (auto) (1.0-4.8) 10^3/ul Absolute Monos (auto) (0-0.8) 10^3/ul Absolute Eos (auto) (0-0.6) 10^3/ul Absolute Basos (auto) (0-0.2) 10^3/ul Absolute Nucleated RBC 10^3/ul Nucleated RBC % INR (Anticoag Therapy) (0.82-1.09) Sodium (135-145) mmol/L Potassium (3.5-5.0) mmol/L Chloride (101-111) mmol/L Carbon Dioxide (22-32) mmol/L Anion Gap (2-11) mmol/L BUN (6-24) mg/dL Creatinine (0.67-1.17) mg/dL Est GFR ( Amer) (>60) Est GFR (Non-Af Amer) (>60) BUN/Creatinine Ratio (8-20) Glucose (70-100) mg/dL Lactic Acid 2.7 H* (0.5-2.0) mmol/L Calcium (8.6-10.3) mg/dL Total Bilirubin (0.2-1.0) mg/dL AST (13-39) U/L ALT (7-52) U/L Alkaline Phosphatase (34-104) U/L Troponin I (<0.04) ng/mL Total Protein (6.4-8.9) g/dL Albumin (3.2-5.2) g/dL Globulin (2-4) g/dL Albumin/Globulin Ratio (1-3) Urine Color Yellow Urine Appearance Clear Urine pH 7.0 (5-9) Ur Specific [place] 1.010 (1.010-1.030) Urine Protein 1+(30 mg/dl) A (Negative) Urine Ketones Negative (Negative) Urine Blood Negative (Negative) Urine Nitrate Negative (Negative) Urine Bilirubin Negative (Negative) Urine Urobilinogen Negative (Negative) Ur Leukocyte Esterase Negative (Negative) Urine WBC (Auto) Trace(0-5/hpf) (Absent) Urine RBC (Auto) Trace(0-2/hpf) (Absent) Ur Squamous Epith Cells Present A (Absent) Urine Bacteria Absent (Absent) Hyaline Casts Present A (Absent) Urine Glucose Negative (Negative) Urine Opiates Screen None detected (None Detect) Ur Barbiturates Screen None detected (None Detect) Ur Phencyclidine Scrn None detected (None Detect) Ur Amphetamines Screen None detected (None Detect) U Benzodiazepines Scrn None detected (None Detect) Urine Cocaine Screen None detected (None Detect) U Cannabinoids Screen None detected (None Detect) Serum Alcohol (<10) mg/dL Result Diagrams: 07/22/18 10:39 07/22/18 10:39 Lab Statement: Any lab studies that have been ordered have been reviewed, and results considered in the medical decision making process. Dizzy Course/Dx - Course Course Of Treatment: During his course treatment, the patient is evaluated for weakness ongoing 2 weeks. He has been seen in the ED since that time. Labs are obtained which show a slightly low H&H, however this is much improved since his previous visits. He is also showing a sodium of 133 and an alkaline phosphatase of 346, again both of which are improved from his previous visits. Drug screen negative. Alcohol level negative. Patient does have an elevated lactic of 2.7, however again this is improved since his last visits. He does state he continues to drink alcohol, but denies drinking today. Since his last visit to the ED, he has not had another fall and denies hitting his head. He denies any worsening confusion. He states he is dizzy frequently, but denies this currently. Discussed results with the patient and he is okay with discharge at this time. He does have a follow-up scheduled to his PCP at [facility] next week. Assessment/Plan: Follow-up [facility] as scheduled next week. Discontinue drinking alcohol. - Diagnoses Provider Diagnoses: Dizziness, Alcohol abuse Discharge - Sign-Out/Discharge Documenting (check all that apply): Patient Departure Patient Received Moderate/Deep Sedation with Procedure: No - Discharge Plan Condition: Stable Disposition: HOME Patient Education Materials: Weakness (ED) Referrals: No Primary Care Phys,NOPCP [Primary Care Provider] - Additional Instructions: Eat plenty of health foods Do not drink alcohol Drink plenty of fluids/water Follow up with PCP - Billing Disposition and Condition Condition: STABLE Disposition: Home
[2018-07-22 12:28] VITALS: BP 193/91
== END 2018-07-22 12:27 | disposition home or self-care (01) ==
LOC: ED 09:35
DX: R42 Dizziness and giddiness (principal); F10.10 Alcohol abuse, uncomplicated; I10 Essential (primary) hypertension; F17.210 Nicotine dependence, cigarettes, uncomplicated; Z91.81 History of falling
CPT/HCPCS: 36415; 71045; 80053; 80307; 80320; 81003; 81015; 83605; 84484; 85025; 85610; 87086; 96374; 99283; A9270-GY; G0480

== ENCOUNTER 2019-05-07 13:42 | Inpatient (IN) | payer MEDICARE ==
[2019-05-07] MEDS ORDERED: Thiamine INJ* 100 MG, Folic Acid IV* 1 MG, Multiple Vitamin IV ADULT* 10 ML in NS 0.9% ... IV ONE (13:56)
--- NOTE | 2019-05-07 13:59 | ED ---
Complex/Multi-Sys Presentation - HPI Summary HPI Summary: This patient is a 54 y/o male presenting to [facility] via EMS for cold exposure today. EMS reports the patient had been outside for the past 4-5 hours walking when they found him outside the [place] [facility]. Per EMS patient was shaking uncontrollably and patient stated he was waiting for his parents to show up. EMS notes tympanic temperature of 96.3 F. Per EMS finger stick glucose is 179. EMS states patient has been alert and oriented the whole time. Patient reports he slipped and fell in the mud/slush about 1 week ago. He currently complaints of left foot pain. Patient also c/o chest pain. Patient has hx of alcohol abuse and he reports his last drink was this morning, patient believes he had a 12 pack. Home Medications Medication Instructions Recorded Confirmed Type NK [No Home Medications Reported] 05/07/19 05/07/19 History - History Of Current Complaint Hx Obtained From: Patient, EMS Onset/Duration: Lasting Hours, Still Present Timing: Hours Severity Currently: Moderate Location: Negative Aggravating Factor(s): nothing Alleviating Factor(s): nothing Associated Signs And Symptoms: Positive: Chest Pain, Other - POSITIVE: shivering , shaking, left foot pain.. Negative: Nausea, Vomiting, Fever - Allergies/Home Medications Allergies/Adverse Reactions: Allergies Allergy/AdvReac Type Severity Reaction Status Date / Time No Known Allergies Allergy Verified 07/15/18 23:01 Home Medications: Home Medications Folic Acid TAB* [Folvite TAB*] 1 mg PO DAILY #90 tab 05/08/19 [Rx] Multivitamins/Minerals TAB* [Theragran/minerals TAB*] 1 tab PO DAILY #90 tab [Rx] Thiamine TAB* [Vitamin B-1 TAB 100 MG*] 100 mg PO DAILY #90 tab 05/08/19 [Rx] amLODIPine TAB* [Norvasc 5 mg TAB*] 10 mg PO DAILY #90 tab 05/08/19 [Rx] PMH/Surg Hx/FS Hx/Imm Hx Endocrine/Hematology History: Denies: Hx Anticoagulant Therapy, Hx Diabetes Cardiovascular History: Reports: Hx Angina, Hx Hypertension Denies: Hx Coronary Artery Disease, Hx Hypercholesterolemia, Hx Myocardial Infarction, Other Cardiovascular Problems/Disorders Respiratory History: Reports: Hx Chronic Obstructive Pulmonary Disease (COPD) Comment Only: Hx Asthma - IN CHILDHOOD ONLY GI History: 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, Hx Hiatal Hernia History: Denies: Hx Chronic Renal Failure, Hx Dialysis Sensory History: Denies: Hx Contacts or Glasses, Hx Eye Prosthesis, Hx Hearing Aid Opthamlomology History: Denies: Hx Contacts or Glasses, Hx Eye Prosthesis Neurological History: Denies: Hx Developmental Delay Psychiatric History: Reports: Hx Anxiety, Hx Depression, Hx Substance Abuse - EtOH Denies: Hx Attention Deficit Hyperactivity Disorder, Hx Autism, Hx Eating Disorder, Hx Panic Disorder, Hx Post Traumatic Stress Disorder, Hx Inpatient Treatment, Hx Community Mental Health Tx, Hx Schizophrenia, Hx Bipolar Disorder , Hx Suicide Attempt, Hx of Violent Episodes Against Others, Other Psychiatric Issues/Disorders - Surgical History Surgical History: Yes Surgery Procedure, Year, and Place: inguinal hernia repair - Family History Known Family History: Positive: Hypertension, Diabetes - mother, Other - HLD Negative: Cardiac Disease - Social History Alcohol Use: Daily Alcohol Amount: ~one 12-pack of beer/day Hx Substance Use: No Substance Use Type: Reports: None Hx Tobacco Use: Yes Smoking Status (MU): Heavy Every Day Tobacco Smoker Type: Cigarettes Amount Used/How Often: 2 ppd Review of Systems Constitutional: Other - POSITIVE: shivering, shaking Negative: Fever, Chills Positive: Chest Pain Negative: Vomiting, Nausea Musculoskeletal: Other - POSITIVE: left leg pain Neurological/Mental Status: Negative All Other Systems Reviewed And Are Negative: Yes Physical Exam - Summary Physical Exam Summary: VITAL SIGNS: Reviewed. GENERAL: Patient is a well-developed and nourished male who is slightly anxious and is shivering. Patient is not in any acute respiratory distress. HEAD AND FACE: No signs of trauma. No ecchymosis, hematomas or skull depressions. No sinus tenderness. EYES: PERRLA, EOMI x 2, No injected conjunctiva, no nystagmus. EARS: Hearing grossly intact. Ear canals and tympanic membranes are within normal limits. MOUTH: Oropharynx within normal limits. NECK: Supple, trachea is midline, no adenopathy, no JVD, no carotid bruit, no c- spine tenderness, neck with full ROM. CHEST: Symmetric, no tenderness at palpation LUNGS: Clear to auscultation bilaterally. No wheezing or crackles. CVS: Regular rate and rhythm, S1 and S2 present, no murmurs or gallops appreciated. ABDOMEN: Soft, non-tender. No signs of distention. No rebound no guarding, and no masses palpated. Bowel sounds are normal. EXTREMITIES: FROM in all major joints, no edema, no cyanosis or clubbing. NEURO: Alert and oriented x 3. No acute neurological deficits. Speech is normal and follows commands. No asterixis. SKIN: Dry and warm. Patient has warts in genital area, which is chronic. Triage Information Reviewed: Yes Vital Signs On Initial Exam: Initial Vitals Temp Pulse Resp BP Pulse Ox 99.1 F 104 18 228/118 100 05/07/19 13:54 05/07/19 13:54 05/07/19 13:54 05/07/19 13:54 05/07/19 13:54 Vital Signs Reviewed: Yes Procedures - Sedation Patient Received Moderate/Deep Sedation with Procedure: No Diagnostics - Laboratory Result Diagrams: 05/08/19 04:16 05/08/19 04:16 Lab Statement: Any lab studies that have been ordered have been reviewed, and results considered in the medical decision making process. - Radiology Chest XR Radiology Interpretation Completed By: Radiologist Summary of Radiographic Findings: IMPRESSION: No active cardiopulmonary disease is noted. Dr. Tavera has reviewed this report. - EKG 14:36 Cardiac Rate: NL - at 80 bpm EKG Rhythm: Sinus Rhythm Summary of EKG Findings: EKG at 1436 shows normal sinu rhythm at [address] elevations. Similar to prior EKG on 07/11/18. This EKG was interpreted and reviewed by ED physician. Complex Multi-Symp Course/Dx Assessment/Plan: This patient is a 54 y/o male presenting to [facility] via EMS for cold exposure today. EMS reports the patient had been outside for the past 4-5 hours walking when they found him outside the [place] [facility]. Per EMS patient was shaking uncontrollably and patient stated he was waiting for his parents to show up. EMS notes tympanic temperature of 96.3 F. Per EMS finger stick glucose is 179. EMS states patient has been alert and oriented the whole time. Patient reports he slipped and fell in the mud/slush. He currently complaints of left foot pain. Patient also c/o chest pain. Patient has hx of alcohol abuse and he reports his last drink was this morning, patient believes he had a 12 pack. Initial temperature was 96.1 after being EMS treated him with warm compresses and warm blankets. Patient is tremulous but no asterixis at this point. The patient is hypertensive. He is not adherent to see his medications for blood pressure. Blood test results without any significant abnormality except for slight anemia, sodium was 127, chloride 93, carbon dioxide is 21, anion gap is 13, creatinine is 1.88, glucose is 175, lactic acid is 6.1, calcium 8.1, troponin is 0.03 and the second troponin 4 hours apart is 0.04. Alcohol level is less than 10. EKG shows a normal sinus rhythm without any ST elevations. CXR impression: No active cardiopulmonary disease. In the ED course the patient was given a banana bag due to his chronic alcoholism. The patient was also given an aspirin for the increased troponin. The patients chest pain has resolved. Therefore the patient was not given nitroglycerin. The patient was given labetalol for treatment of his hypertension as well as the increased troponin. I discussed the case with Dr. Moise from the ICU and she will admit the patient for lactic acidosis, increased troponin rule out acute coronary syndrome. The patient is hemodynamically stable. Blood pressure before admission is 188/92. - Diagnoses Provider Diagnoses: Lactic acid acidosis, Elevated troponin, Alcoholism, Hypertensive urgency, Chest pain - Physician Notifications Discussed Care Of Patient With: Aimee Moise - right of way manager Time Discussed With Above Provider: 17:36 Instructed by Provider To: Admit As Inpatient - Critical Care Time Critical Care Time: 75-104 min Discharge ED - Sign-Out/Discharge Documenting (check all that apply): Patient Departure - Admit to ICU - Discharge Plan Condition: Stable Disposition: ADMITTED TO [facility] - Billing Disposition and Condition Condition: STABLE Disposition: Admitted to [facility] - Attestation Statements Document Initiated by Nedaibe: Yes Documenting Scribe: Lanette Meek Provider For Whom Korin is Documenting (Include Credential): Albin Tavera MD Scribe Attestation: Lanette Liang scribed for Albin Tavera MD on 05/09/19 at 0758. Scribe Documentation Reviewed: Yes Provider Attestation: The documentation as recorded by the Lanette lennon accurately reflects the service I personally performed and the decisions made by me, Albin Tavera MD Status of Scribe Document: Viewed
[2019-05-07 14:32] LABS: ABS Basophils 0.1 10^3/ul (0-0.2); ABS Lymphocytes 1.5 10^3/ul (1.0-4.8); ABS Monocytes 0.5 10^3/ul (0-0.8); ABS Neutrophils 5.4 10^3/ul (1.5-7.7); Eosinophil % 0.1 %; Hematocrit 29 % (42-52); Hemoglobin 10.3 g/dL (14.0-18.0); Lymphocyte % 19.9 %; Mean Corpuscular HGB Conc 35 g/dL (31-36); Mean Corpuscular Hemoglobin 35 pg (27-31); Mean Corpuscular Volume 98 fL (80-94); Mean Platelet Volume 6.8 fL (7.4-10.4); Platelet Count 139 10^3/uL (150-450); Red Blood Count 2.97 10^6 /uL (4.18-5.48); Red Cell Distribution Width 13 % (10-15); White Blood Count 7.6 10^3/uL (3.5-10.8)
[2019-05-07 14:54] LABS: Troponin I 0.03 ng/mL (<0.03)
[2019-05-07 14:55] LABS: ALT 31 U/L (7-52); AST 39 U/L (13-39); Albumin/Globulin Ratio 1.3 (1-3); Alkaline Phosphatase 211 U/L (34-104); Anion Gap 13 mmol/L (2-11); BUN/Creatinine Ratio 4.3 (8-20); Blood Urea Nitrogen 6 mg/dL (6-24); CO2 Carbon Dioxide 21 mmol/L (22-32); Calcium 8.1 mg/dL (8.6-10.3); Chloride 93 mmol/L (101-111); EGFR African American 64.5 (>60); EGFR Non-African American 53.3 (>60); Globulin 2.3 g/dL (2-4); Glucose 175 mg/dL (70-100); Potassium 3.5 mmol/L (3.5-5.0); Sodium 127 mmol/L (135-145); Total Protein 5.3 g/dL (6.4-8.9)
[2019-05-07 15:13] LABS: Acetaminophen < 15 mcg/mL; Alcohol < 10 mg/dL (<10); Salicylate < 2.50 mg/dL (<30)
[2019-05-07] MEDS: Labetalol IV* 5 MG/ML 20 ML VIAL IV PUSH ONE ×2 (17:05→17:30)
[2019-05-07 17:06] LABS: Troponin I 0.04 ng/mL (<0.03)
[2019-05-07] MEDS ORDERED: hydrALAZINE IV* 20 MG/ML VIAL IV SLOW PU PRN (18:01)
[2019-05-07] MEDS ORDERED: NS 0.9% 1000 ML** 1,000 ML IV SCH (18:15)
[2019-05-07] MEDS ORDERED: Lorazepam PYXIS KEY PRN (18:25)
--- NOTE | 2019-05-07 18:26 | HP ---
H&P (Free Text) History and Physical: HISTORY AND PHYSICAL DATE OF ADMISSION: 05/07/19 ADMITTING PHYSICIAN: Dr Aimee Moise PRIMARY CARE PROVIDER: [facility] HPI: 54M with known medical history of HTN, tobacco and alcohol abuse, presents on 05/06/19 with complaints of headache, chest pain, dizziness. Patient is poor historian and there are inconsistencies. He states he was at home this morning, started experiencing these symptoms and called the ambulance to take him to the hospital. In other reports, patient was out shopping, waiting outside for his parents to pick him up, standing out in the cold for a long time and was witnessed to be shivering. According to the chart, temp for EMS was 96.3. However, temp upon arrival was 99.1. Upon arrival, his BP was noted to be in the 200's. Was given 2 doses of labetalol without signficant effect. Lactate elevated at 6.1. Hospitalist requested ICU admission for elevated lactate and hypertensive urgency. Patient drinks 18 beers per day, only drank 6 this morning , but according to chart, had drank 12 this morning. He also complains of some pain on his buttocks, from where he fell on ice 1 week ago. ROS: negative except for pertinent positives mentioned above PMHx: HTN, tobacco and alcohol abuse PSHx: unknown Family History: Father and Mother both have HTN Social History: Drinks 18 beers per day, smokes 2PPD cigarettes, denies drug use. Lives alone Allergies: NKDA Home Medications: UNKNOWN Tele: sinus bradycardia Vitals: Vital Signs 05/07/19 05/07/19 05/07/19 13:54 14:03 14:15 Temperature 99.1 F 98.3 F Pulse Rate 104 100 Respiratory 18 24 Rate Blood Pressure 228/118 (mmHg) O2 Sat by Pulse 100 99 Oximetry 05/07/19 05/07/19 05/07/19 14:21 14:51 15:00 Temperature Pulse Rate 85 81 80 Respiratory 23 18 20 Rate Blood Pressure 218/114 210/116 (mmHg) O2 Sat by Pulse 98 97 97 Oximetry 05/07/19 05/07/19 05/07/19 15:21 15:51 16:00 Temperature Pulse Rate 83 80 77 Respiratory 36 21 29 Rate Blood Pressure 218/111 203/106 (mmHg) O2 Sat by Pulse 98 96 97 Oximetry 05/07/19 05/07/19 05/07/19 16:21 16:51 17:00 Temperature Pulse Rate 82 76 75 Respiratory 23 19 21 Rate Blood Pressure 207/102 202/99 (mmHg) O2 Sat by Pulse 99 98 97 Oximetry 05/07/19 17:28 Temperature Pulse Rate Respiratory 19 Rate Blood Pressure 213/100 (mmHg) O2 Sat by Pulse Oximetry Intake and Output Last 24 Hours 05/05/19 05/06/19 05/07/19 05/08/19 06:59 06:59 06:59 06:59 Weight 175 lb O2: RA Infusions: Banana bag Current Medications: Acetaminophen (Tylenol Tab*) 650 mg PO Q4H PRN PRN Reason: PAIN - MILD Amlodipine Besylate (Norvasc Tab*) 10 mg PO DAILY STA Stop: 05/07/19 18:02 Folic Acid (Folvite Tab*) 1 mg PO DAILY [facility] Hydralazine HCl (Apresoline Iv*) 5 mg IV SLOW PU Q2H PRN PRN Reason: SYSTOLIC BP GREATER THAN: Sodium Chloride (Ns 0.9% 1000 Ml) 1,000 mls @ 100 mls/hr IV PER RATE [facility] Lorazepam (Ativan Inj*) 0 - 3 mg IV PUSH .PER [facility] PROTOCOL MAMTA; Protocol Multivitamins/Minerals (Theragran/Minerals Tab*) 1 tab PO DAILY MAMTA Thiamine HCl (Vitamin B-1 Tab*) 100 mg PO DAILY [facility] Physical Exam: Constitutional: awake, alert, no distress, no diaphoresis. Scattered bruising Head: normocephalic, atraumatic Eyes: no pallor, no icterus ENT: moist mucous membranes Neck: soft, supple, no jvd, no stridor CVS: normal rate, regular, no murmur Chest/Resp: bilateral air entry, , mild rhonchi throughout. No acc muscle use Abdomen/GI: soft, nontender, nondistended, BS+ Ext/Msk: warm, pulses+, no edema Skin: intact, warm Neuro: awake, alert, orientedx3, moving all extremities, no gross focal deficit Psych: flat affect Labs: Laboratory Results - last 24 hr 05/07/19 05/07/19 05/07/19 14:25 14:25 14:25 WBC 7.6 RBC 2.97 L Hgb 10.3 L Hct 29 L MCV 98 H MCH 35 H MCHC 35 RDW 13 Plt Count 139 L MPV 6.8 L Neut % (Auto) 71.6 Lymph % (Auto) 19.9 Latimer % (Auto) 7.3 Eos % (Auto) 0.1 Baso % (Auto) 1.1 Absolute Neuts (auto) 5.4 Absolute Lymphs (auto) 1.5 Absolute Monos (auto) 0.5 Absolute Eos (auto) 0.0 Absolute Basos (auto) 0.1 Absolute Nucleated RBC 0.0 Nucleated RBC % 0.0 Sodium 127 L Potassium 3.5 Chloride 93 L Carbon Dioxide 21 L Anion Gap 13 H BUN 6 Creatinine 1.38 H Est GFR ( Amer) 64.5 Est GFR (Non-Af Amer) 53.3 BUN/Creatinine Ratio 4.3 L Glucose 175 H Lactic Acid 6.1 H* Calcium 8.1 L Total Bilirubin 0.70 AST 39 ALT 31 Alkaline Phosphatase 211 H Troponin I 0.03 H* Total Protein 5.3 L Albumin 3.0 L Globulin 2.3 Albumin/Globulin Ratio 1.3 Salicylates < 2.50 Acetaminophen < 15 Serum Alcohol < 10 05/07/19 16:30 WBC RBC Hgb Hct MCV MCH MCHC RDW Plt Count MPV Neut % (Auto) Lymph % (Auto) Latimer % (Auto) Eos % (Auto) Baso % (Auto) Absolute Neuts (auto) Absolute Lymphs (auto) Absolute Monos (auto) Absolute Eos (auto) Absolute Basos (auto) Absolute Nucleated RBC Nucleated RBC % Sodium Potassium Chloride Carbon Dioxide Anion Gap BUN Creatinine Est GFR ( Amer) Est GFR (Non-Af Amer) BUN/Creatinine Ratio Glucose Lactic Acid Calcium Total Bilirubin AST ALT Alkaline Phosphatase Troponin I 0.04 H* Total Protein Albumin Globulin Albumin/Globulin Ratio Salicylates Acetaminophen Serum Alcohol Imaging: Chest xray 05/07: No cardiopulmonary disease Assessment: 54M with known medical history of HTN, tobacco and alcohol abuse, presents after what seems like a possible hypothermic episode. He also c/o chest pain, bilateral ankle/feet pain, and headache. SBP 200's on arrival, lactact 6.1. - Elevated lactate - Hypertensive urgency - ETOH abuse Plan: Neuro- - No active issues -Delirium prec; avoid BDZ CVS- - Hypertensive urgency: acute on chronic. Apparently baseline SBP is 200;s and patient does not take his medications at home. - Goal SBP 140-180. Started amlodipine 10mg daily. PRN hydralyzine for persistent BP >190 Resp- - No active issues -Keep sat>92% -Bronchodilators PRN, Aspiration prec, Pulmonary Toilet ID- - No active issues. No episodes of hypothermia - Goal temp<101 GI- -Nutrition: Heart Healthy diet -GI prophylaxis pepcid - ETOH abuse: high likelyhood for withdrawal. Started WAM protocol Renal- - Elevated lactate: acute. likely d/t dehydration. Start NS @ 100 -strict I/O, replete to keep K>4, Mg>2 -voiding Heme- - No active issues - SCDs for DVT prophylaxis Endo- Maintain BG<200, insulin protocol as needed Musculsk- pressure ulcer prophylaxis. OOB. Wounds- none Nutrition-heart healthy DVT prophylaxis:scds GI prophylaxis:pepcid Disposition: Admit to ICU; Expected LOS>2 midnights; Patient requires Critical Care/ICU for hypertensive urgency, elevated lactate Patient Clinical Status: stable Code Status: full Total Critical Care time is 45 minutes
[2019-05-07] MEDS: amLODIPine TAB* 5 MG PO SCH (18:43)
[2019-05-07] MEDS ORDERED: LORazepam INJ* 2 MG/ML 1 ML VIAL IV PUSH SCH (19:00)
[2019-05-07] MEDS: Acetaminophen TAB* 325 MG PO PRN (21:16)
[2019-05-07 22:05] LABS: Troponin I 0.04 ng/mL (<0.03)
[2019-05-08] LABS: Urine Appearance Cloudy; Urine Bilirubin Negative (Negative); Urine Blood 1+ (Negative); Urine Color Yellow; Urine Glucose Negative (Negative); Urine Ketones Negative (Negative); Urine Nitrite Negative (Negative); Urine Protein 1+(30 mg/dL) (Negative); Urine Specific Gravity 1.011 (1.010-1.030); Urine Urobilinogen Negative (Negative)
[2019-05-08 00:02] LABS: Urine Bacteria Absent (Absent); Urine Red Blood Cell 1+(3-5/hpf) (Absent); Urine Squamous Epithelial Cell Present (Absent); Urine White Blood Cell Trace(0-5/hpf) (Absent)
[2019-05-08 00:15] LABS: Urine Benzodiazepine Screen None Detected (None Detect); Urine Opiates Screen None Detected (None Detect)
[2019-05-08 04:29] LABS: Hematocrit 24 % (42-52); Hemoglobin 8.5 g/dL (14.0-18.0); Mean Corpuscular HGB Conc 35 g/dL (31-36); Mean Corpuscular Hemoglobin 35 pg (27-31); Mean Corpuscular Volume 98 fL (80-94); Mean Platelet Volume 7.6 fL (7.4-10.4); Platelet Count 121 10^3/uL (150-450); Red Blood Count 2.47 10^6 /uL (4.18-5.48); Red Cell Distribution Width 13 % (10-15)
[2019-05-08 04:37] LABS: Albumin 2.5 g/dL (3.2-5.2); Calcium 7.4 mg/dL (8.6-10.3); Total Bilirubin 0.5 mg/dL (0.2-1.0)
[2019-05-08 04:43] LABS: Albumin/Globulin Ratio 1.4 (1-3); BUN/Creatinine Ratio 5.5 (8-20); EGFR African American 84.7 (>60); Globulin 1.8 g/dL (2-4); Total Protein 4.3 g/dL (6.4-8.9)
[2019-05-08 04:53] LABS: Potassium 2.7 mmol/L (3.5-5.0)
[2019-05-08] MEDS: KCL 20 MEQ/100 ML IVPREMIX* 20 MEQ/100 ML BAG IV SCH ×2 (05:06→07:11)
[2019-05-08] MEDS ORDERED: Nicotine PATCH 21 MG/24 HR* PATCH TRANSDERM SCH (08:00)
[2019-05-08] MEDS: amLODIPine TAB* 5 MG PO SCH (08:10)
[2019-05-08] MEDS: Acetaminophen TAB* 325 MG PO PRN (08:11)
--- NOTE | 2019-05-08 08:53 | DS ---
DISCHARGE SUMMARY DATE OF ADMISSION: 05/07/19 DATE OF DISCHARGE: 05/08/19 DISCHARGE CONDITION: Stable DISCHARGE DISPO: Home DISCHARGE DIAGNOSES: 1. Elevated lactate 2. Baseline noncardiac chest pain 3. Headache 4. Hypertensive urgency 5. ETOH abuse DISCHARGE MEDICATIONS: 1. Amlodipine 10mg daily 2. Multivitamins 1 tab daily 3. Thiamine 100mg daily 4. Folic acid 1mg daily HOSPITAL COURSE: 54M poor historian but with known medical history of HTN and etoh abuse, presents on 05/07/19 after being found at the store, waiting for his parents, after wandering around for 4-5 hours outside. Story has multiple inconsistencies, patient states he was at home, started feeling chest pain, headache, and dizziness. Per the chart and nursing report, he was really outside , hypothermic for EMS and covered in stool. It is known that he doesnt take his antihypertensive medications and his BP always runs in the 200's. In the ED, SBP 228/118, temp 99.1, lactact 6.1. He was admitted to ICU with hypertensive urgency and elevated lactate. Started on IVF, amlodipine 10mg daily with PRN hydralyzine. Overnight, patient stable, SBP within goal. Social work consulted. His chest pressure is baseline and never changes. Decision made to discharge patient home. Medications sent to his pharmacy.
[2019-05-08] MEDS ORDERED: Thiamine TAB* 100 MG TAB PO SCH (09:00)
[2019-05-08] MEDS ORDERED: Multivitamins/Minerals TAB PO SCH (09:00)
[2019-05-08] MEDS ORDERED: Folic Acid TAB* 1 MG PO SCH (09:00)
[2019-05-08] MEDS ORDERED: Famotidine TAB* 20 MG PO SCH (09:00)
[2019-05-08] MEDS ORDERED: Influenza VAC *QUAD* 2019-20* 0.5 ML SYRINGE IM ONE (09:00)
[2019-05-08 12:14] VITALS: BP 175/82
--- NOTE | 2019-05-08 12:51 | PN ---
Progress Note - Progress Note Date of Service: 05/08/19
--- NOTE | 2019-05-08 13:23 | PN ---
Progress Note - Progress Note Date of Service: 05/08/19 Note: The patient is medically ready for discharge. However, he does not feel ready to go home. He presented to the ED for "cold exposure." His temperature on arrival was 99.1F. He was admitted for hypertension and lactic acidosis. Hypertension has improved today. He does not take medication for blood pressure at home, and it appears that his systolic blood pressure is often >200. His mom reports that he refused to take medication and to see his PCP. Lactic acid is normal this morning after hydration. The patient drinks heavily. Social work talked with him about quitting drinking. He was not interested in quitting this morning, although this afternoon he is interested in quitting. I discussed with the patient and his parents that he is medically ready for discharge. The patient would like to stay in the hospital because he "knows he will start drinking again when he gets home." He and his parents would like him to stay in the hospital so that he does not drink alcohol again. The patient has been referred to [facility] to address alcohol abuse as well as establish primary care for hypertension management. I discussed at length that staying in the hospital in order to stop drinking for a few days is not helpful in changing his behavior and that there is a high likelihood that he will start drinking again after discharge without counseling or other strategies to stay away from alcohol. The patient can appeal the decision to discharge, which was explained to the patient. However, he may be financially responsible for the hospital stay after today. His mother appeared frustrated with the conversation , and both parents left before the end of the discussion. Laurie Flood NP had a similar discussion with the patient and his parents. Holly Short, social worker clinical, explained to the patient and his mother that the patient will need to call [facility] to set up an appointment. She also explained to the patient the process of appealing a discharge. The patient will be transferred to the floor while waiting for the final result of the appeal process.
[2019-05-08 13:40] LABS: Magnesium 1.6 mg/dL (1.9-2.7)
[2019-05-08] MEDS ORDERED: Magnesium Oxide TAB* 400 MG PO ONE (13:54)
[2019-05-08] MEDS ORDERED: Potassium Chlor TAB* 20 MEQ TAB.ER PO ONE (13:55)
[2019-05-08] MEDS ORDERED: Nicotine Patch Removal NOTE PATCH OFF SCH (21:00)
== END 2019-05-08 14:00 | disposition home or self-care (01) | DRG 305 ==
LOC: ED 13:42 → ICU 17:58
PROVIDERS: ADMIT Surgery Surgical Critical Care; ATTEND Surgery Surgical Critical Care
DX: I16.0 Hypertensive urgency (principal); E87.2 Acidosis; I10 Essential (primary) hypertension; J44.9 Chronic obstructive pulmonary disease, unspecified; F41.9 Anxiety disorder, unspecified; F32.9 Major depressive disorder, single episode, unspecified; K70.30 Alcoholic cirrhosis of liver without ascites; F17.210 Nicotine dependence, cigarettes, uncomplicated; R79.89 Other specified abnormal findings of blood chemistry; R07.89 Other chest pain; F10.10 Alcohol abuse, uncomplicated; Y90.0 Blood alcohol level of less than 20 mg/100 ml; Z91.14 Patient's other noncompliance with medication regimen
CPT/HCPCS: 36415; 71045; 80053; 80307; 80320; 80329; 81003; 81015; 83605; 83735; 84484; 85025; 85027; 87086; 87641; 90686; 93005; 96374; 99285; A9270-GY; G0480; J3411; J3480

== ENCOUNTER 2019-09-15 19:59 | Inpatient (IN) ==
[2019-09-15 21:31] LABS: ABS Lymphocytes 2.1 10^3/ul (1.0-4.8); ABS Monocytes 0.6 10^3/ul (0-0.8); Eosinophil % 0.2 %; Hematocrit 30 % (42-52); Hemoglobin 10.9 g/dL (14.0-18.0); Lymphocyte % 22.1 %; Mean Corpuscular HGB Conc 37 g/dL (31-36); Mean Corpuscular Hemoglobin 34 pg (27-31); Mean Corpuscular Volume 94 fL (80-94); Mean Platelet Volume 6.9 fL (7.4-10.4); Platelet Count 252 10^3/uL (150-450); Red Blood Count 3.18 10^6 /uL (4.18-5.48); Red Cell Distribution Width 13 % (10-15); White Blood Count 9.6 10^3/uL (3.5-10.8)
[2019-09-15 21:46] LABS: ALT 13 U/L (7-52); AST 17 U/L (13-39); Albumin 2.5 g/dL (3.2-5.2); Albumin/Globulin Ratio 0.9 (1-3); Alkaline Phosphatase 113 U/L (34-104); Anion Gap 7 mmol/L (2-11); BUN/Creatinine Ratio 10.9 (8-20); Blood Urea Nitrogen 20 mg/dL (6-24); CO2 Carbon Dioxide 25 mmol/L (22-32); Calcium 7.7 mg/dL (8.6-10.3); Chloride 88 mmol/L (101-111); Creatine Kinase 55 U/L (10-223); EGFR African American 46.3 (>60); EGFR Non-African American 38.2 (>60); Globulin 2.7 g/dL (2-4); Glucose 106 mg/dL (70-100); Magnesium 1.8 mg/dL (1.9-2.7); Potassium 3.3 mmol/L (3.5-5.0); Sodium 120 mmol/L (135-145); Total Protein 5.2 g/dL (6.4-8.9)
[2019-09-15 21:49] LABS: Troponin I 0.01 ng/mL (<0.03)
[2019-09-15 21:51] LABS: CKMB ng/mL 1.7 ng/mL (0.6-6.3)
[2019-09-15] MEDS ORDERED: Potassium Chlor 20 meq TAB.ER PO ONE (21:53)
[2019-09-15] MEDS ORDERED: NS 0.9% 1000 ml BAG 1,000 ML IV ONE (21:53)
[2019-09-15] MEDS ORDERED: Ondansetron 4 mg VIAL 2 MG/ML 2 ml VIAL IV ONE (21:53)
[2019-09-15 21:59] LABS: Activated Partial Thrombo Time 27.8 seconds (26.0-38.0); INR 0.93 (0.82-1.09)
[2019-09-15 22:25] LABS: Alcohol, S < 10 mg/dL (<10)
[2019-09-15] MEDS ORDERED: Magnesium Sulfate 2 gm BAG 2 GM/50 ML BAG IVPB ONE (22:39)
[2019-09-15] MEDS ORDERED: NS 0.9% 1000 ml BAG 1,000 ML IV SCH (22:45)
[2019-09-15] MEDS ORDERED: LORazepam 1 mg TAB (*) PO SCH (23:00)
[2019-09-15 23:14] LABS: Prealbumin 7 mg/dL (18-38)
[2019-09-16 00:05] LABS: BUN/Creatinine Ratio 11.1 (8-20); Calcium 7.3 mg/dL (8.6-10.3); EGFR African American 50.4 (>60); EGFR Non-African American 41.6 (>60); Potassium 3.4 mmol/L (3.5-5.0)
[2019-09-16 00:07] LABS: Troponin I 0.01 ng/mL (<0.03)
[2019-09-16] MEDS ORDERED: Morphine 2 MG/ML SYRINGE IV ONE (00:26)
[2019-09-16] MEDS: Ondansetron 4 mg VIAL 2 MG/ML 2 ml VIAL IV PRN ×4 (00:56→23:59)
[2019-09-16] MEDS ORDERED: LORazepam 2 mg VIAL 1 ml IV PUSH SCH (01:00)
[2019-09-16 02:42] LABS: Urine Appearance Cloudy; Urine Bilirubin Negative (Negative); Urine Blood Negative (Negative); Urine Color Yellow; Urine Glucose Negative (Negative); Urine Ketones Negative (Negative); Urine Nitrite Negative (Negative); Urine Protein Negative (Negative); Urine Specific Gravity 1.014 (1.010-1.030); Urine Urobilinogen Negative (Negative)
[2019-09-16 02:50] LABS: Urine Sodium Concentration < 18 mmol/L
[2019-09-16 02:58] LABS: Urine Creatinine Concentration 164.09 mg/dL
[2019-09-16 05:37] LABS: Hematocrit 24 % (42-52); Hemoglobin 8.8 g/dL (14.0-18.0); Mean Corpuscular HGB Conc 36 g/dL (31-36); Mean Corpuscular Hemoglobin 34 pg (27-31); Mean Corpuscular Volume 94 fL (80-94); Mean Platelet Volume 6.7 fL (7.4-10.4); Platelet Count 218 10^3/uL (150-450); Red Cell Distribution Width 13 % (10-15); White Blood Count 8.9 10^3/uL (3.5-10.8)
[2019-09-16 05:46] LABS: INR 0.96 (0.82-1.09)
[2019-09-16 05:52] LABS: BUN/Creatinine Ratio 10.6 (8-20); Calcium 7.1 mg/dL (8.6-10.3); EGFR Non-African American 44.6 (>60); Potassium 3.6 mmol/L (3.5-5.0)
[2019-09-16] MEDS: Heparin 5000 UNITS/ML VIAL(*) 1 ml vial SUBCUT SCH ×3 (06:05→20:15)
[2019-09-16] MEDS ORDERED: NS 0.9% 1000 ml BAG 1,000 ML IV SCH (08:45)
[2019-09-16 08:47] LABS: ABS Basophils 0.1 10^3/ul (0-0.2); ABS Lymphocytes 2.7 10^3/ul (1.0-4.8); ABS Monocytes 0.5 10^3/ul (0-0.8); Eosinophil % 0.5 %; Lymphocyte % 30.4 %
[2019-09-16 08:58] LABS: Magnesium 2.3 mg/dL (1.9-2.7)
[2019-09-16] MEDS: Multivitamins/Minerals TAB PO SCH (09:11)
[2019-09-16 09:58] LABS: BUN/Creatinine Ratio 10.8 (8-20); Calcium 7.3 mg/dL (8.6-10.3); EGFR African American 55.6 (>60); EGFR Non-African American 45.9 (>60); Potassium 3.5 mmol/L (3.5-5.0)
[2019-09-16] MEDS: Nicotine PATCH 21 MG/24 HR PATCH TRANSDERM SCH (11:09)
[2019-09-16 14:57] LABS: BUN/Creatinine Ratio 11.3 (8-20); Calcium 6.9 mg/dL (8.6-10.3); EGFR African American 58.6 (>60); EGFR Non-African American 48.4 (>60); Potassium 3.5 mmol/L (3.5-5.0)
[2019-09-16 21:46] LABS: Calcium 7.1 mg/dL (8.6-10.3); EGFR African American 51.8 (>60); EGFR Non-African American 42.8 (>60); Potassium 3.7 mmol/L (3.5-5.0)
[2019-09-17 00:01] LABS: Urine Creatinine Concentration 141.71 mg/dL; Urine Sodium Concentration < 18 mmol/L
[2019-09-17] MEDS: Heparin 5000 UNITS/ML VIAL(*) 1 ml vial SUBCUT SCH ×3 (05:12→21:54)
[2019-09-17 05:55] LABS: ABS Basophils 0.1 10^3/ul (0-0.2); ABS Lymphocytes 2.5 10^3/ul (1.0-4.8); ABS Monocytes 0.5 10^3/ul (0-0.8); Eosinophil % 0.4 %; Hematocrit 28 % (42-52); Hemoglobin 10.1 g/dL (14.0-18.0); Lymphocyte % 25.4 %; Mean Corpuscular HGB Conc 36 g/dL (31-36); Mean Corpuscular Hemoglobin 34 pg (27-31); Mean Corpuscular Volume 95 fL (80-94); Mean Platelet Volume 7.1 fL (7.4-10.4); Nucleated Red Blood Cells % 0.1; Platelet Count 234 10^3/uL (150-450); Red Blood Count 2.95 10^6 /uL (4.18-5.48); Red Cell Distribution Width 13 % (10-15); White Blood Count 9.8 10^3/uL (3.5-10.8)
[2019-09-17 06:13] LABS: Troponin I 0.01 ng/mL (<0.03)
[2019-09-17 06:14] LABS: BUN/Creatinine Ratio 11.5 (8-20); Calcium 7.3 mg/dL (8.6-10.3); EGFR African American 46.6 (>60); EGFR Non-African American 38.5 (>60); Potassium 3.7 mmol/L (3.5-5.0)
[2019-09-17 06:30] LABS: INR 0.9 (0.82-1.09)
[2019-09-17] MEDS: Nicotine PATCH 21 MG/24 HR PATCH TRANSDERM SCH (08:42)
[2019-09-17] MEDS: Ondansetron 4 mg VIAL 2 MG/ML 2 ml VIAL IV PRN ×3 (08:43→17:53)
[2019-09-17] MEDS: Multivitamins/Minerals TAB PO SCH (08:44)
[2019-09-17] MEDS: Al Hydrox/Mg Hydrox/Simet LIQ 30 ML UDC PO PRN (09:41)
[2019-09-17] MEDS: NS 0.9% 1000 ml BAG 1,000 ML IV SCH ×2 (09:42→18:25)
[2019-09-17] MEDS ORDERED: Senna TAB 8.6 mg TAB PO PRN (15:16)
[2019-09-17 16:42] LABS: BUN/Creatinine Ratio 13.1 (8-20); Calcium 7.3 mg/dL (8.6-10.3); EGFR Non-African American 40.5 (>60); Potassium 3.7 mmol/L (3.5-5.0)
[2019-09-17] MEDS: Albuterol HFA INHALER 8 gm MDI INH PRN (22:28)
[2019-09-18] MEDS: Al Hydrox/Mg Hydrox/Simet LIQ 30 ML UDC PO PRN ×2 (02:49→07:49)
[2019-09-18] MEDS: Heparin 5000 UNITS/ML VIAL(*) 1 ml vial SUBCUT SCH ×3 (05:31→20:40)
[2019-09-18] MEDS: NS 0.9% 1000 ml BAG 1,000 ML IV SCH ×2 (05:32→13:50)
[2019-09-18 05:37] LABS: ABS Basophils 0.1 10^3/ul (0-0.2); ABS Lymphocytes 1.9 10^3/ul (1.0-4.8); ABS Monocytes 0.5 10^3/ul (0-0.8); Eosinophil % 0.6 %; Hematocrit 26 % (42-52); Hemoglobin 9.1 g/dL (14.0-18.0); Mean Corpuscular HGB Conc 35 g/dL (31-36); Mean Corpuscular Hemoglobin 34 pg (27-31); Mean Corpuscular Volume 96 fL (80-94); Mean Platelet Volume 6.7 fL (7.4-10.4); Nucleated Red Blood Cells % 0.1; Platelet Count 257 10^3/uL (150-450); Red Blood Count 2.69 10^6 /uL (4.18-5.48); Red Cell Distribution Width 13 % (10-15); White Blood Count 7.7 10^3/uL (3.5-10.8)
[2019-09-18 05:42] LABS: INR 0.83 (0.82-1.09)
[2019-09-18 05:55] LABS: Albumin 2.1 g/dL (3.2-5.2); BUN/Creatinine Ratio 14.3 (8-20); Calcium 7.2 mg/dL (8.6-10.3); EGFR African American 51.4 (>60); EGFR Non-African American 42.5 (>60); Globulin 2.2 g/dL (2-4); Potassium 3.9 mmol/L (3.5-5.0); Total Bilirubin 0.2 mg/dL (0.2-1.0); Total Protein 4.3 g/dL (6.4-8.9)
[2019-09-18] MEDS: Multivitamins/Minerals TAB PO SCH (07:49)
[2019-09-18] MEDS: Nicotine PATCH 21 MG/24 HR PATCH TRANSDERM SCH (07:49)
[2019-09-18 08:54] LABS: Urine Creatinine Concentration 166.08 mg/dL; Urine Sodium Concentration < 18 mmol/L
[2019-09-18] MEDS: SPIRIVA Respimat (tiotropium) 2.5 mcg/inh Inhaler INH SCH (09:09)
[2019-09-18] MEDS: Albuterol HFA INHALER 8 gm MDI INH PRN (12:25)
[2019-09-18] MEDS: Ondansetron 4 mg VIAL 2 MG/ML 2 ml VIAL IV PRN (12:49)
[2019-09-18 16:45] LABS: Body Fluid Source Peritonial Fluid
[2019-09-18 18:37] LABS: Body Fluid Mono 16 %; Body Fluid Other Cells 40
[2019-09-19] MEDS: Heparin 5000 UNITS/ML VIAL(*) 1 ml vial SUBCUT SCH ×3 (05:14→22:05)
[2019-09-19 06:18] LABS: ABS Eosinophils 0.1 10^3/ul (0-0.6); ABS Monocytes 0.5 10^3/ul (0-0.8); Eosinophil % 1.3 %; Hematocrit 24 % (42-52); Hemoglobin 8.5 g/dL (14.0-18.0); Lymphocyte % 26.5 %; Mean Corpuscular HGB Conc 35 g/dL (31-36); Mean Corpuscular Hemoglobin 34 pg (27-31); Mean Corpuscular Volume 96 fL (80-94); Mean Platelet Volume 6.9 fL (7.4-10.4); Nucleated Red Blood Cells % 0.1; Platelet Count 270 10^3/uL (150-450); Red Blood Count 2.49 10^6 /uL (4.18-5.48); Red Cell Distribution Width 13 % (10-15); White Blood Count 7.6 10^3/uL (3.5-10.8)
[2019-09-19 06:31] LABS: INR 0.85 (0.82-1.09)
[2019-09-19 06:41] LABS: Albumin 1.9 g/dL (3.2-5.2); Albumin/Globulin Ratio 0.8 (1-3); BUN/Creatinine Ratio 15.8 (8-20); Calcium 6.9 mg/dL (8.6-10.3); EGFR Non-African American 52.9 (>60); Globulin 2.3 g/dL (2-4); Potassium 4.5 mmol/L (3.5-5.0); Total Bilirubin 0.2 mg/dL (0.2-1.0); Total Protein 4.2 g/dL (6.4-8.9)
[2019-09-19] MEDS: SPIRIVA Respimat (tiotropium) 2.5 mcg/inh Inhaler INH SCH (07:04)
[2019-09-19] MEDS: Albuterol HFA INHALER 8 gm MDI INH PRN (07:04)
[2019-09-19] MEDS: Nicotine PATCH 21 MG/24 HR PATCH TRANSDERM SCH (09:10)
[2019-09-19] MEDS: Ondansetron 4 mg VIAL 2 MG/ML 2 ml VIAL IV PRN ×2 (09:16→22:05)
[2019-09-19] MEDS: Multivitamins/Minerals TAB PO SCH (09:16)
[2019-09-19] MEDS ORDERED: Prochlorperazine 5 mg/ml 2 ml VIAL (10 mg) IV ONE (22:40)
[2019-09-20] MEDS ORDERED: LORazepam 2 mg VIAL 1 ml IV PUSH ONE
[2019-09-20] MEDS ORDERED: Lorazepam PYXIS KEY PRN
[2019-09-20] MEDS: Pantoprazole VIAL 40 MG VIAL IV SCH ×2 (01:50→14:16)
[2019-09-20] MEDS ORDERED: Morphine 2 MG/ML SYRINGE IV ONE (04:08)
[2019-09-20 05:40] LABS: ABS Eosinophils 0.1 10^3/ul (0-0.6); ABS Lymphocytes 2.2 10^3/ul (1.0-4.8); ABS Monocytes 0.6 10^3/ul (0-0.8); Eosinophil % 1.2 %; Hematocrit 22 % (42-52); Hemoglobin 7.8 g/dL (14.0-18.0); Lymphocyte % 30.8 %; Mean Corpuscular HGB Conc 35 g/dL (31-36); Mean Corpuscular Hemoglobin 34 pg (27-31); Mean Corpuscular Volume 96 fL (80-94); Mean Platelet Volume 6.7 fL (7.4-10.4); Nucleated Red Blood Cells % 0.1; Platelet Count 272 10^3/uL (150-450); Red Cell Distribution Width 13 % (10-15); White Blood Count 7.1 10^3/uL (3.5-10.8)
[2019-09-20 05:58] LABS: BUN/Creatinine Ratio 17.5 (8-20); EGFR Non-African American 53.7 (>60)
[2019-09-20] MEDS: Heparin 5000 UNITS/ML VIAL(*) 1 ml vial SUBCUT SCH ×3 (06:02→20:58)
[2019-09-20] MEDS: SPIRIVA Respimat (tiotropium) 2.5 mcg/inh Inhaler INH SCH (07:47)
[2019-09-20] MEDS: Albuterol HFA INHALER 8 gm MDI INH PRN (07:54)
[2019-09-20] MEDS: Multivitamins/Minerals TAB PO SCH (08:17)
[2019-09-20] MEDS: Nicotine PATCH 21 MG/24 HR PATCH TRANSDERM SCH (08:18)
[2019-09-20] MEDS ORDERED: Pantoprazole VIAL 40 MG VIAL IV SCH (09:00)
[2019-09-20 17:19] LABS: Hematocrit 26 % (42-52); Hemoglobin 8.9 g/dL (14.0-18.0)
[2019-09-20] MEDS: Ondansetron 4 mg VIAL 2 MG/ML 2 ml VIAL IV PRN (21:48)
[2019-09-21] MEDS: Pantoprazole VIAL 40 MG VIAL IV SCH ×2 (01:04→14:42)
[2019-09-21] MEDS: Heparin 5000 UNITS/ML VIAL(*) 1 ml vial SUBCUT SCH ×3 (05:11→21:35)
[2019-09-21] MEDS: SPIRIVA Respimat (tiotropium) 2.5 mcg/inh Inhaler INH SCH (08:06)
[2019-09-21] MEDS: Albuterol HFA INHALER 8 gm MDI INH PRN (08:06)
[2019-09-21] MEDS: Nicotine PATCH 21 MG/24 HR PATCH TRANSDERM SCH (09:26)
[2019-09-21] MEDS: Multivitamins/Minerals TAB PO SCH (09:26)
[2019-09-21 09:55] LABS: Hematocrit 24 % (42-52); Hemoglobin 8.7 g/dL (14.0-18.0)
[2019-09-21 10:12] LABS: BUN/Creatinine Ratio 15.2 (8-20); Calcium 7.3 mg/dL (8.6-10.3); EGFR African American 58.1 (>60); Potassium 4.7 mmol/L (3.5-5.0)
[2019-09-21] MEDS: Ondansetron 4 mg VIAL 2 MG/ML 2 ml VIAL IV PRN (14:40)
[2019-09-21 16:26] LABS: Fluid Type, Protein, Total PERITONEAL
[2019-09-22] MEDS: Pantoprazole VIAL 40 MG VIAL IV SCH ×2 (01:33→13:03)
[2019-09-22] MEDS ORDERED: Polyethylene Glycol 3350 17 GM PACKET PO PRN (05:13)
[2019-09-22] MEDS: Heparin 5000 UNITS/ML VIAL(*) 1 ml vial SUBCUT SCH ×3 (05:31→20:41)
[2019-09-22 07:18] LABS: BUN/Creatinine Ratio 14.7 (8-20); Calcium 7.4 mg/dL (8.6-10.3); EGFR Non-African American 46.3 (>60)
[2019-09-22] MEDS: Multivitamins/Minerals TAB PO SCH (08:01)
[2019-09-22] MEDS: Nicotine PATCH 21 MG/24 HR PATCH TRANSDERM SCH (08:01)
[2019-09-22] MEDS: SPIRIVA Respimat (tiotropium) 2.5 mcg/inh Inhaler INH SCH (08:17)
[2019-09-22] MEDS: Albuterol HFA INHALER 8 gm MDI INH PRN (08:17)
[2019-09-22 10:41] LABS: Fluid Type, Amylase PERITONEAL; Fluid Type, Glucose PERITONEAL
[2019-09-22 10:45] LABS: Fluid Type, Albumin PERITONEAL
[2019-09-22 11:52] LABS: Fluid Type: PERITONEAL; Triglycerides (BF) 28 mg/dL
[2019-09-22 15:14] LABS: Body Fluid Bilirubin 0.1 mg/dL; Fluid Type PERITONEAL
[2019-09-23] MEDS: Albuterol HFA INHALER 8 gm MDI INH PRN ×2 (01:16→05:18)
[2019-09-23] MEDS: Pantoprazole VIAL 40 MG VIAL IV SCH ×2 (01:20→14:03)
[2019-09-23] MEDS ORDERED: Morphine 2 MG/ML SYRINGE IV ONE (02:23)
[2019-09-23] MEDS ORDERED: Albuterol/Ipratropium NEB.SOL (2.5/0.5 MG) 3 ML NEB.SOLN INH PRN (05:16)
[2019-09-23] MEDS: Heparin 5000 UNITS/ML VIAL(*) 1 ml vial SUBCUT SCH ×2 (05:18→14:02)
[2019-09-23 07:27] LABS: BUN/Creatinine Ratio 15.3 (8-20); Calcium 7.5 mg/dL (8.6-10.3); EGFR African American 50.7 (>60); EGFR Non-African American 41.9 (>60); Potassium 4.7 mmol/L (3.5-5.0)
[2019-09-23] MEDS: SPIRIVA Respimat (tiotropium) 2.5 mcg/inh Inhaler INH SCH (07:51)
[2019-09-23] MEDS ORDERED: Mometasone/Formoter 100/5 MDI INH SCH (09:00)
[2019-09-23] MEDS: Nicotine PATCH 21 MG/24 HR PATCH TRANSDERM SCH (09:17)
[2019-09-23] MEDS: Multivitamins/Minerals TAB PO SCH (09:17)
[2019-09-23 13:07] VITALS: BP 154/76
== END 2019-09-23 14:35 | DRG 682 ==
LOC: ED 19:59 → MEDTELE 23:12
PROVIDERS: ADMIT Nurse Practitioner Family; ATTEND Internal Medicine